=== PATIENT | male | born 1960 | race Caucasian/White ===

== ENCOUNTER 2016-11-28 11:21 | Inpatient (IN) | payer MEDICARE, BC ==
[2016-11-28] VITALS (7 sets, daily range): BP systolic 136–147; BP diastolic 60–74
[~2016-11-28] VITALS: Ht 180.3 cm; Wt 113.4 kg
[~2016-11-28 11:21] MED LIST: ASPI-482 PO; CHOL20004 PO; DOXY100T PO; DULO60CA6 PO; FLUD0.1T PO; INSU100C SQ; INSU100C4 SQ; INSU100V8 SQ; KRIL500C PO; METH4TAB2 PO; MYCO360T PO; NIAC500T9 PO; OMEG10005 PO; SULF1TAB23 PO; TACR0.5C4 PO; TACR1CAP4 PO
[2016-11-28] MEDS ORDERED: IV NORMAL SALINE 1000ML BAG 1,000 ML IV SCH (12:15)
[2016-11-28] MEDS: FENTANYL PF 100 MCG/2 ML VIAL. IV PRN ×4 (12:39→22:21)
[2016-11-28 12:42] LABS: BASO % 0 % (0-3); EOS % 0 % (0-3); HEMATOCRIT 39.9 % (39.0-53.0); HEMOGLOBIN 13.5 g/dL (13.0-17.5); LYMPH # 0.4 x10^3/uL (1.0-4.8); LYMPH % 5 % (24-48); MEAN CORPUSCULAR HEMOGLOBIN 29 pg (25-35); MEAN CORPUSCULAR HGB CONC 34 g/dL (31-37); MEAN CORPUSCULAR VOLUME 86 fL (79-100); MONO % 7 % (0-9); NEUT % 87 % (31-73); PLATELET COUNT 233 x10^3/uL (140-400); RED BLOOD COUNT 4.66 x10^6/uL (4.30-5.70); RED CELL DISTRIBUTION WIDTH 15.1 % (11.5-14.5); WHITE BLOOD COUNT 9.3 x10^3/uL (4.0-11.0)
[2016-11-28 12:56] LABS: CALCIUM 9.5 mg/dL (8.5-10.1); CREATININE 1.5 mg/dL (0.7-1.3); GFR 48.2; POTASSIUM 4.1 mmol/L (3.5-5.1)
[2016-11-28 13:19] LABS: C-REACTIVE PROTEIN 454.2 mg/L (0-3.3)
--- NOTE | 2016-11-28 13:48 | PHYS DOC ---
Past Medical History Past Medical History: Diabetes-Type II, Renal Disease, Other Additional Past Medical Histor: CY NEUROPATHY LEGS AND ARMS,vertigo Past Surgical History: Coronary Bypass Surgery, Other Additional Past Surgical Histo: CY KIDNEY TRANSPLANT, CATARACT SX CY EYES, FX RIGHT HIP,FISTULA L ARM Alcohol Use: None Drug Use: None Adult General Chief Complaint Chief Complaint: LOWER EXTREMITY SWELLING HPI HPI Patient is a 56 year old male who presents with pain, redness, and swelling to right anterior knee that is worsened over the past 2 days. This pain is achy, severe, constant, worse with range of motion. He states he had a rug burn to his right knee 2 days ago and it has turned this. He denies bleeding or drainage or other injury. States it is difficult to bend his right knee due to the pain and swelling. He was seen at urgent care and sent here for further evaluation for concern of cellulitis in the setting of immunosuppression. He denies numbness, tingling, weakness, fever or chills, nausea or vomiting. Review of Systems Review of Systems Constitutional: Denies fever or chills [] Eyes: Denies change in visual acuity, redness, or eye pain [] HENT: Denies nasal congestion or sore throat [] Respiratory: Denies cough or shortness of breath [] Cardiovascular: No additional information not addressed in HPI [] GI: Denies abdominal pain, nausea, vomiting, bloody stools or diarrhea [] : Denies dysuria or hematuria [] Musculoskeletal: Denies back pain [] Integument: Has rash and skin lesions to RLE [] Neurologic: Denies headache, focal weakness or sensory changes [] Endocrine: Denies polyuria or polydipsia [] Current Medications Current Medications Current Medications Medications (Trade) Dose Ordered Sig/Beena Start Time Stop Time Status Last Admin Dose Admin Fentanyl Citrate 50 mcg 50 mcg PRN Q15MIN PRN 11/28/16 12:15 11/29/16 12:14 11/28/16 12:39 50 MCG Sodium Chloride (Iv Sodium Chloride 0.9% 1000ml Bag) 1,000 ml @ 1,000 mls/hr Q1H 11/28/16 12:15 11/28/16 13:14 DC 11/28/16 12:39 1,000 MLS/HR Allergies Allergies Allergies Coded Allergies Type Severity Reaction Last Updated Verified No Known Allergies Allergy Intermediate 03/01/16 Yes Physical Exam Physical Exam Constitutional: Well developed, well nourished, no acute distress, non-toxic appearance. [] HENT: Normocephalic, atraumatic, bilateral external ears normal, oropharynx moist, nose normal. [] Eyes: PERRLA, EOMI. [] Neck: Normal range of motion, supple. [] Cardiovascular:Heart rate regular rhythm [] Lungs & Thorax: Bilateral breath sounds clear to auscultation [] Abdomen: Bowel sounds normal, soft, no tenderness. [] Skin: Warm, dry. [] Back: Normal range of motion. [] Extremities: Right lower extremity with redness and swelling to anterior knee worst in the infrapatellar region with obvious thinning of skin concerning for abscess, fluctuance underneath area of thin skin, tenderness and warmth throughout area of discoloration, no crepitance or induration noted, palpable prepatellar swelling noted throughout, no bony tenderness, no posterior knee tenderness, full range of motion at hip/ankle/foot, restricted range of motion of the knee due to pain, equal DP pulses, sensation intact to light touch Neurologic: Alert and oriented X 3, normal motor function, normal sensory function, no focal deficits noted. [] Psychologic: Affect normal, judgement normal, mood normal. [] Current Patient Data Vital Signs Vital Signs Date Time Temp Pulse Resp B/P Pulse Ox O2 Delivery O2 Flow Rate FiO2 11/28/16 11:54 99.4 75 20 177/79 95 Room Air 99.4 Lab Values Laboratory Tests Test 11/28/16 12:25 White Blood Count 9.3x10^3/uL (4.0-11.0) Red Blood Count 4.66x10^6/uL (4.30-5.70) Hemoglobin 13.5g/dL (13.0-17.5) Hematocrit 39.9% (39.0-53.0) Mean Corpuscular Volume 86fL (79-100) Mean Corpuscular Hemoglobin 29pg (25-35) Mean Corpuscular Hemoglobin Concent 34g/dL (31-37) Red Cell Distribution Width 15.1% (11.5-14.5) H Platelet Count 233x10^3/uL (140-400) Neutrophils (%) (Auto) 87% (31-73) H Lymphocytes (%) (Auto) 5% (24-48) L Monocytes (%) (Auto) 7% (0-9) Eosinophils (%) (Auto) 0% (0-3) Basophils (%) (Auto) 0% (0-3) Neutrophils # (Auto) 8.1x10^3uL (1.8-7.7) H Lymphocytes # (Auto) 0.4x10^3/uL (1.0-4.8) L Monocytes # (Auto) 0.7x10^3/uL (0.0-1.1) Eosinophils # (Auto) 0.0x10^3/uL (0.0-0.7) Basophils # (Auto) 0.0x10^3/uL (0.0-0.2) Segmented Neutrophils % 91% (35-66) H Lymphocytes % 4% (24-48) L Monocytes % 5% (0-10) Platelet Estimate Adequate (ADEQUATE) Erythrocyte Sedimentation Rate 112 (0-15) H Sodium Level 127mmol/L (136-145) L Potassium Level 4.1mmol/L (3.5-5.1) Chloride Level 93mmol/L (98-107) L Carbon Dioxide Level 26mmol/L (21-32) Anion Gap 8 (6-14) Blood Urea Nitrogen 26mg/dL (8-26) Creatinine 1.5mg/dL (0.7-1.3) H Estimated GFR (Cockcroft-Gault) 48.2 Glucose Level 446mg/dL (70-99) H Calcium Level 9.5mg/dL (8.5-10.1) C-Reactive Protein, Quantitative 454.2mg/L (0-3.3) H Laboratory Tests 11/28/16 12:25 Laboratory Tests 11/28/16 12:25 Radiology/Procedures Radiology/Procedures Right knee x-ray as interpreted by me with no acute osseous abnormality, has swelling to the prepatellar and infrapatellar areas with small amount of gas to infrapatellar area in location of incision and drainage Course & Med Decision Making Course & Med Decision Making Pertinent Labs and Imaging studies reviewed. (See chart for details) Bedside incision and drainage completed to right knee using 18-gauge needle to unroof soft area to infrapatellar region. Significant amount of purulent drainage expressed from the wound. Wound was not probed or irrigated otherwise. Aerobic wound culture was sent to lab. This was performed prior to XRay. Discussed need for admission for cellulitis with abscess in the setting of immunocompromised state with Dr Villegas, who agrees to admit. Orthopedics consult placed. Julietteon Disclaimer Dragon Disclaimer This electronic medical record was generated, in whole or in part, using a voice recognition dictation system. Departure Departure Impression: Primary Impression: Cellulitis and abscess of leg, except foot Additional Impression: Immunosuppression Disposition: 09 ADMITTED INPATIENT Condition: STABLE Referrals: TIMA VILLEGAS MD (PCP) Problem Qualifiers Michelle BARAHONA MD Nov 28, 2016 13:48
[2016-11-28] MEDS ORDERED: VANCOMYCIN PER PHARMACY MC PRN (14:00)
[2016-11-28] MEDS ORDERED: VANCOMYCIN 2 GM in IV NORMAL SALINE 500ML BAG 500 ML IV ONE (14:00)
[2016-11-28] MEDS ORDERED: ACETAMINOPHEN 325 MG TABLET. PO PRN (14:00)
[2016-11-28] MEDS ORDERED: PIP/TAZO PER PHARMACY MC PRN ×2 (14:00→21:30)
[2016-11-28] MEDS ORDERED: ONDANSETRON PF 4 MG/2 ML VIAL. IV PRN ×2 (14:00→17:30)
--- NOTE | 2016-11-28 14:09 | RAD ---
Right knee, 3 views, 11/28/2016: History: Knee pain and swelling Comparison is made to a study from 03/01/2016. The inferior aspect of an intramedullary halley is present in the distal femur. There is an old comminuted fracture of the lower pole of the patella. The fracture fragments are incompletely united. There is some sclerotic change and bony loss involving the most inferior patellar fragments. There is moderate soft tissue swelling in the prepatellar and infrapatellar regions. There are gas collections in the soft tissues in the infrapatellar region suggesting an open wound or infection by a gas-forming organism. There is a suggestion of a joint effusion. No acute distal femoral, proximal tibial or proximal fibular fracture is seen. Arterial calcifications are present. IMPRESSION: 1. 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 2. Small gas collections and soft tissue swelling in the infrapatellar region. In the absence of penetrating trauma, infection should be considered.
[2016-11-28 14:30] LABS: PLT ESTIMATE ADEQUATE (ADEQUATE)
[2016-11-28] MEDS ORDERED: PIPERACILLIN/TAZOBACTAM 3.375 GM in IV NORMAL SALINE 50ML 50 ML IV ONE (15:00)
--- NOTE | 2016-11-28 15:31 | ACF ---
Admission Forms Criteria CELLULITIS Clinical Indications for Admission to Inpatient Care (Place 'X' for any and all applicable criteria): Admission is indicated for ANY ONE of the following(1)(2)(3)(4)(5): [ ]I. Limb-threatening infection [ ]II. High-risk comorbid condition as indicated by ANY ONE of the following: [ ]a) Uncontrolled diabetes (eg, HbA1c greater than 10% (0.1)) [ ]b) Cirrhosis [ ]c) Neutropenia [ ]d) Asplenia [ ]e) Immunosuppression [ ]f) Symptomatic heart failure [ ]III. Failure of outpatient therapy as indicated by ALL of the following: [ ]a) Progression or no improvement after adequate trial (minimum of 48 hours, with longer period for stable lower extremity infection) [ ]b) Adequate antibiotic regimen as indicated by use of ANY ONE of the following: [ ]i) First-generation cephalosporin (e.g., cephalexin) [ ]ii) Antistaphylococcal penicillin (e.g., dicloxacillin) [ ]iii) Penicillin-allergic patient regimen (clindamycin, extended-spectrum fluoroquinolone, or doxycycline) [ ]iv) Resistant organism (eg, methicillin-resistant Staphylococcus aureus) regimen (6) [ ]c) Outpatient intravenous therapy regimen is not appropriate due to ANY ONE of the following. (7)(8)(9)(10): [ ]i) It was tried and was not successful (eg, progression of infection). [ ]ii) It is not available or cannot be arranged in a clinically appropriate time frame (e.g., the next day). [ ]iii) Clinical presentation (eg, acuity of infection, rapidity of progression, confirmed or suspected bacteremia) is judged to require ALL of the following: [ ]1) Immediate initiation of intravenous therapy ( eg, cannot wait for next day) [ ]2) Intensity of patient monitoring and observation (eg, vital sign measurement, checks for infection progression) that cannot be provided at other than inpatient level of care [ ]IV. Mental status changes [ ]V. Bacteremia [ ]. Hemodynamic instability [ ]VII. Suspected necrotizing soft tissue infection (e.g., gas in tissue)(11)( 12) [ ]VIII. Orbital infection (13)(14) [ ]IX. Associated surgical procedure (e.g., abscess drainage, debridement) not amenable to outpatient, emergency department, or observation care [ ]X. Cutaneous gangrene [ ]XI. High fever (temperature greater than 39.5 degrees C (103.1 degrees F) (oral)) not responsive to outpatient, emergency department, or observation care therapy [X]XIII. Inpatient admission required rather than observation care (Also use Cellulitis: Observation Care as appropriate) because of ANY ONE of the following : [ ]a) Periorbital or perineal infection that is severe or worsening [X]b) Severe pain requiring acute inpatient management [ ]c) IV fluid to replace significant ongoing (e.g., for over 24 hours) losses (greater than 3L/m2 per day) [ ]d) Compartment syndrome monitoring (17) [ ]e) Strict or protective (eg, laminar flow) isolation [ ]f) Urgent debridement or skin grafting [ ]g) Bone or joint debridement [ ]h) Immediate inpatient surgery [ ]i) Other condition, treatment or monitoring requiring inpatient admission Extended stay beyond goal length of stay may be needed for (1)(18): [ ]a) Necrotizing soft tissue infection or fasciitis [ ]b) Gram-negative infection [ ]c) Methicillin-resistant Staphylococcal aureus (MRSA) infection [ ]d) Peripheral venous insufficiency with cellulitis [ ]e) Extensive edema [ ]f) Sepsis or continued Hemodynamic instability [ ]g) Continued high fever or mental status change [ ]h) Bacteremia [ ]i) Active serious comorbid conditions ( eg, heart failure, renal insufficiency) The original [facility] content created by [employer] has been revised. The portions of the content which have been revised are identified through the use of italic text or in bold, and [facility] has neither reviewed nor approved the modified material. All other unmodified content is copyright [facility] Please see references footnoted in the original [facility] edition 2016 Admission Criteria Met?: Yes KESHAWN VARMA Nov 28, 2016 15:30
[2016-11-28] MEDS ORDERED: INSU100C4 SQ ×3 (16:48→16:50)
[2016-11-28] MEDS ORDERED: TACR1CAP4 PO (16:48)
[2016-11-28] MEDS ORDERED: DEXTROSE 50% 25 GM / 50ML DISP.SYRIN. IV PRN ×2 (17:00→21:00)
[2016-11-28] MEDS ORDERED: IV RINGERS,LACTATED 1000ML 1,000 ML IV SCH (17:24)
[2016-11-28] MEDS ORDERED: MORPHINE SULFATE 2 MG/ML DISP.SYRIN. IV PRN (17:30)
[2016-11-28] MEDS ORDERED: HYDROMORPHONE 2 MG/ML VIAL. IV PRN (17:30)
[2016-11-28] MEDS ORDERED: PROCHLORPERAZINE 10 MG/2 ML VIAL. IV PRN (17:30)
[2016-11-28] MEDS ORDERED: FENTANYL PF 100 MCG/2 ML VIAL. IV PRN (17:30)
[2016-11-28] MEDS ORDERED: LIDOCAINE 1% 1 ML SYRINGE. ID PRN (17:30)
[2016-11-28] MEDS: IV NORMAL SALINE 1000ML BAG 1,000 ML IV SCH (18:00)
[2016-11-28] MEDS ORDERED: PHENYLEPHRINE in 0.9% NACL PF 1 MG/10 ML DISP.SYRIN. IV ONE (18:10)
[2016-11-28] MEDS ORDERED: FENTANYL PF 100 MCG/2 ML VIAL. ONE (18:10)
[2016-11-28] MEDS ORDERED: FAMOTIDINE 20 MG/2 ML VIAL ONE (18:10)
[2016-11-28] MEDS ORDERED: PROPOFOL 20 ML IV ONE ×2 (18:10→18:33)
[2016-11-28] MEDS ORDERED: ONDANSETRON PF 4 MG/2 ML VIAL. ONE (18:10)
[2016-11-28] MEDS: PIPERACILLIN/TAZOBACTAM 3.375 GM in IV NORMAL SALINE 50ML 50 ML IV SCH ×2 (18:30→23:57)
[2016-11-28] MEDS ORDERED: SEVOFLURANE 31 TO 60 MINUTES. IH ONE (18:57)
[2016-11-28] MEDS ORDERED: SEVOFLURANE 61 TO 120 MINUTES. IH ONE ×2 (18:57→19:50)
[2016-11-28] MEDS ORDERED: TOBRAMYCIN POWDER 1.2 GM VIAL. ONE ×6 (19:21→19:46)
[2016-11-28] MEDS ORDERED: VANCOMYCIN 10GM VIAL for OR. ONE (19:21)
[2016-11-28] MEDS ORDERED: TRANEXAMIC ACID 1,000 MG in IV NORMAL SALINE 50ML 50 ML INJ ONE (19:30)
[2016-11-28] MEDS ORDERED: INSULIN ASPART 100 UNIT/ML 10ML VIAL. SQ ONE (20:57)
[2016-11-28] MEDS ORDERED: INSULIN REGULAR 100 UNIT/ML 10ML VIAL. IV ONE (21:00)
--- NOTE | 2016-11-28 21:35 | PDOC ---
BRIEF OPERATIVE NOTE Date: Nov 28, 2016 Pre-Op Diagnosis right septic prepatellar bursitis Post-Op Diagnosis right knee septic arthritis Procedure Performed Incision and debridement, excisional debridement, arthrotomy of right knee Surgeon Madison Redman MD Anesthesiologist none Anesthesia Type: General Blood Loss 100 cc Specimens Obtained multiple cultures and specimens sent to pathology from the knee Findings significant purulence in the suprapatellar bursae involving intratendinous aspect of the patellar tendon. large pus collection in the knee joint proper. biofilm on the femoral condyles. Complications none MADISON REDMAN MD Nov 28, 2016 21:34
[2016-11-29] MEDS ORDERED: PIPERACILLIN/TAZOBACTAM 3.375 GM in IV NORMAL SALINE 50ML 50 ML IV SCH ×2
[2016-11-29] MEDS: FENTANYL PF 100 MCG/2 ML VIAL. IV PRN ×5 (01:11→14:54)
[2016-11-29] MEDS ORDERED: VANCOMYCIN 1.5 GM in IV NORMAL SALINE 500ML BAG 500 ML IV SCH (02:00)
[2016-11-29 03:00] VITALS: BP 151/57
[2016-11-29] MEDS: PIPERACILLIN/TAZOBACTAM 3.375 GM in IV NORMAL SALINE 50ML 50 ML IV SCH (06:24)
[2016-11-29 07:00] VITALS: BP 160/65
[2016-11-29] MEDS ORDERED: MYCOPHENOLIC ACID 360 MG PO SCH (09:00)
[2016-11-29] MEDS: MYCOPHENOLATE ACID 180 MG TABLET.DR. PO SCH ×2 (09:00→21:03)
[2016-11-29] MEDS: ASPIRIN ENTERIC COATED 81 MG TABLET.DR. PO SCH (09:36)
[2016-11-29] MEDS: CHOLECALCIFEROL (VITAMIN D3) 1,000 UNIT TABLET PO SCH (09:36)
[2016-11-29] MEDS: TACROLIMUS 1 MG CAPSULE PO SCH ×2 (09:36→21:03)
[2016-11-29] MEDS: OMEGA-3 FATTY ACIDS/FISH OIL 1,000 MG CAPSULE. PO SCH (09:37)
[2016-11-29] MEDS: FLUDROCORTISONE 0.1 MG TABLET PO SCH (09:37)
[2016-11-29] MEDS: DULOXETINE HCL 30 MG CAPSULE.DR. PO SCH (09:37)
--- NOTE | 2016-11-29 09:48 | PDOC ---
Infectious Disease Note ROS ROS GEN: Denies fevers, chills, sweats HEENT: Denies blurred vision, sore throat CV: Denies chest pain RESP: Denies shortness of air, cough GI: Denies n/v/d NEURO: Denies confusion, dizziness MSK: Denies weakness, joint pain/swelling Vital Sign Vital Signs Vital Signs Date Time Temp Pulse Resp B/P Pulse Ox O2 Delivery O2 Flow Rate FiO2 11/29/16 07:00 98.8 83 16 160/65 95 Room Air 98.8 11/29/16 06:54 2.0 Physical Exam PHYSICAL EXAM GENERAL: NAD, Alert HEENT: PERRL, OC/OP NECK: Supple, no JVD, no LN LUNGS: Clear HEART: S1S2, no gallop, no murmur ABD: Soft, NT, no organomegaly, no rebound EXT: No edema, no cyanosis HEELER MACHINE: Alert, oriented x 3, no focal neurologic deficit SKIN: No rash IV: ok Labs Lab Laboratory Tests Test 11/28/16 12:25 11/28/16 16:20 11/28/16 20:22 11/29/16 00:39 White Blood Count 9.3x10^3/uL (4.0-11.0) Red Blood Count 4.66x10^6/uL (4.30-5.70) Hemoglobin 13.5g/dL (13.0-17.5) Hematocrit 39.9% (39.0-53.0) Mean Corpuscular Volume 86fL (79-100) Mean Corpuscular Hemoglobin 29pg (25-35) Mean Corpuscular Hemoglobin Concent 34g/dL (31-37) Red Cell Distribution Width 15.1% (11.5-14.5) Platelet Count 233x10^3/uL (140-400) Neutrophils (%) (Auto) 87% (31-73) Lymphocytes (%) (Auto) 5% (24-48) Monocytes (%) (Auto) 7% (0-9) Eosinophils (%) (Auto) 0% (0-3) Basophils (%) (Auto) 0% (0-3) Neutrophils # (Auto) 8.1x10^3uL (1.8-7.7) Lymphocytes # (Auto) 0.4x10^3/uL (1.0-4.8) Monocytes # (Auto) 0.7x10^3/uL (0.0-1.1) Eosinophils # (Auto) 0.0x10^3/uL (0.0-0.7) Basophils # (Auto) 0.0x10^3/uL (0.0-0.2) Segmented Neutrophils % 91% (35-66) Lymphocytes % 4% (24-48) Monocytes % 5% (0-10) Platelet Estimate Adequate (ADEQUATE) Erythrocyte Sedimentation Rate 112 (0-15) Sodium Level 127mmol/L (136-145) Potassium Level 4.1mmol/L (3.5-5.1) Chloride Level 93mmol/L (98-107) Carbon Dioxide Level 26mmol/L (21-32) Anion Gap 8 (6-14) Blood Urea Nitrogen 26mg/dL (8-26) Creatinine 1.5mg/dL (0.7-1.3) Estimated GFR (Cockcroft-Gault) 48.2 Glucose Level 446mg/dL (70-99) Calcium Level 9.5mg/dL (8.5-10.1) C-Reactive Protein, Quantitative 454.2mg/L (0-3.3) Glucose (Fingerstick) 382mg/dL (70-99) 361mg/dL (70-99) 291mg/dL (70-99) Test 11/29/16 07:14 Glucose (Fingerstick) 328mg/dL (70-99) Objective Assessment Right septic knee s/p I and D Immunosuppression CKD GPC DM Plan Plan of Care D/c Vanc/Zosyn with CKD and post op Dose Ceftaroline F/u labs and cults/sensitivities Will need PICC line if ok with renal -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
[2016-11-29] MEDS: INSULIN ASPART 300 UNITS/3 ML INSULN.PEN SQ SCH ×4 (09:54→17:38)
--- NOTE | 2016-11-29 10:42 | PDOC ---
PROGRESS NOTES Subjective Subjective Pt awake and pleasant in conversation this am. C/o manageable pain of affected knee. States he has little to no appetite. Pt states his output has been normal. Objective Objective Pt awake and alert. NAD. FSBS elevated, BP elevated (Home medications not restarted as instructed from verbal order with admission orders, initiated this am). Right knee red and warm to touch, dressing CDI. Resp even and unlabored. Lung sounds CTA bilat. Heart with RRR. No murmurs. Vital Signs Date Time Temp Pulse Resp B/P Pulse Ox O2 Delivery O2 Flow Rate FiO2 11/29/16 09:38 Room Air 11/29/16 07:00 98.8 83 16 160/65 95 98.8 11/29/16 06:54 2.0 Intake and Output 11/29/16 07:00 Intake Total 1250 ml Output Total 350 ml Balance 900 ml Intake Oral 240 ml IV Total 1010 ml Output Urine Total 250 ml Estimated Blood Loss 100 ml # Voids 2 Assessment Assessment Problems Medical Problems: (1) Cellulitis and abscess of leg, except foot Status: Acute (2) Immunosuppression Status: Acute Plan Plan of Care 1. Right septic knee -s/p I and D on 11/29 -Culture with GPC, sensitivity pending -ID consulting -Ceftaroline initiated on 11/29 -Renal consulted regarding PICC line placement 2. 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 Acute on chronic renal failure -Renal consulted -Creat 1.5 3. DM, insulin dependent -Pt on Levemir and Novolog. -FSBS qid Comment Review of Relevant I have reviewed the following items shawn (where applicable) has been applied. Labs Laboratory Tests Test 11/28/16 12:25 11/28/16 16:20 11/28/16 20:22 11/29/16 00:39 White Blood Count 9.3x10^3/uL (4.0-11.0) Red Blood Count 4.66x10^6/uL (4.30-5.70) Hemoglobin 13.5g/dL (13.0-17.5) Hematocrit 39.9% (39.0-53.0) Mean Corpuscular Volume 86fL (79-100) Mean Corpuscular Hemoglobin 29pg (25-35) Mean Corpuscular Hemoglobin Concent 34g/dL (31-37) Red Cell Distribution Width 15.1% (11.5-14.5) Platelet Count 233x10^3/uL (140-400) Neutrophils (%) (Auto) 87% (31-73) Lymphocytes (%) (Auto) 5% (24-48) Monocytes (%) (Auto) 7% (0-9) Eosinophils (%) (Auto) 0% (0-3) Basophils (%) (Auto) 0% (0-3) Neutrophils # (Auto) 8.1x10^3uL (1.8-7.7) Lymphocytes # (Auto) 0.4x10^3/uL (1.0-4.8) Monocytes # (Auto) 0.7x10^3/uL (0.0-1.1) Eosinophils # (Auto) 0.0x10^3/uL (0.0-0.7) Basophils # (Auto) 0.0x10^3/uL (0.0-0.2) Segmented Neutrophils % 91% (35-66) Lymphocytes % 4% (24-48) Monocytes % 5% (0-10) Platelet Estimate Adequate (ADEQUATE) Erythrocyte Sedimentation Rate 112 (0-15) Sodium Level 127mmol/L (136-145) Potassium Level 4.1mmol/L (3.5-5.1) Chloride Level 93mmol/L (98-107) Carbon Dioxide Level 26mmol/L (21-32) Anion Gap 8 (6-14) Blood Urea Nitrogen 26mg/dL (8-26) Creatinine 1.5mg/dL (0.7-1.3) Estimated GFR (Cockcroft-Gault) 48.2 Glucose Level 446mg/dL (70-99) Calcium Level 9.5mg/dL (8.5-10.1) C-Reactive Protein, Quantitative 454.2mg/L (0-3.3) Glucose (Fingerstick) 382mg/dL (70-99) 361mg/dL (70-99) 291mg/dL (70-99) Test 11/29/16 07:14 Glucose (Fingerstick) 328mg/dL (70-99) Laboratory Tests Test 11/28/16 12:25 11/28/16 16:20 11/28/16 20:22 11/29/16 00:39 White Blood Count 9.3x10^3/uL (4.0-11.0) Red Blood Count 4.66x10^6/uL (4.30-5.70) Hemoglobin 13.5g/dL (13.0-17.5) Hematocrit 39.9% (39.0-53.0) Mean Corpuscular Volume 86fL (79-100) Mean Corpuscular Hemoglobin 29pg (25-35) Mean Corpuscular Hemoglobin Concent 34g/dL (31-37) Red Cell Distribution Width 15.1% (11.5-14.5) Platelet Count 233x10^3/uL (140-400) Neutrophils (%) (Auto) 87% (31-73) Lymphocytes (%) (Auto) 5% (24-48) Monocytes (%) (Auto) 7% (0-9) Eosinophils (%) (Auto) 0% (0-3) Basophils (%) (Auto) 0% (0-3) Neutrophils # (Auto) 8.1x10^3uL (1.8-7.7) Lymphocytes # (Auto) 0.4x10^3/uL (1.0-4.8) Monocytes # (Auto) 0.7x10^3/uL (0.0-1.1) Eosinophils # (Auto) 0.0x10^3/uL (0.0-0.7) Basophils # (Auto) 0.0x10^3/uL (0.0-0.2) Segmented Neutrophils % 91% (35-66) Lymphocytes % 4% (24-48) Monocytes % 5% (0-10) Platelet Estimate Adequate (ADEQUATE) Erythrocyte Sedimentation Rate 112 (0-15) Sodium Level 127mmol/L (136-145) Potassium Level 4.1mmol/L (3.5-5.1) Chloride Level 93mmol/L (98-107) Carbon Dioxide Level 26mmol/L (21-32) Anion Gap 8 (6-14) Blood Urea Nitrogen 26mg/dL (8-26) Creatinine 1.5mg/dL (0.7-1.3) Estimated GFR (Cockcroft-Gault) 48.2 Glucose Level 446mg/dL (70-99) Calcium Level 9.5mg/dL (8.5-10.1) C-Reactive Protein, Quantitative 454.2mg/L (0-3.3) Glucose (Fingerstick) 382mg/dL (70-99) 361mg/dL (70-99) 291mg/dL (70-99) Test 11/29/16 07:14 Glucose (Fingerstick) 328mg/dL (70-99) Microbiology 11/28/16 Gram Stain - Final, Complete Medications Current Medications Fentanyl Citrate 50 mcg 50 mcg PRN Q15MIN PRN IV PAIN GREATER THAN 3/10 Last administered on 11/29/16 06:24; Start 11/28/16 at 12:15; Stop 11/29/16 at 12:14 Sodium Chloride (Iv Sodium Chloride 0.9% 1000ml Bag) 1,000 ml @ 1,000 mls/hr Q1H IV Last administered on 11/28/16 12:39; Start 11/28/16 at 12:15; Stop at 13:14; Status DC Ondansetron HCl (Zofran) 4 mg PRN Q8HRS PRN IV NAUSEA/VOMITING; Start 11/28/16 at 14:00; Stop 11/29/16 at 13:59 Fentanyl Citrate (Fentanyl 2ml Vial) 50 mcg PRN Q2HR PRN IV PAIN Last administered on 11/29/16 09:38; Start 11/28/16 at 14:00; Stop 11/29/16 at 13:59 Acetaminophen (Tylenol) 650 mg PRN Q4HRS PRN PO FEVER; Start 11/28/16 at 14:00 ; Stop 11/29/16 at 13:59 Vancomycin HCl (Vanco Per Pharmacy) 1 each PRN DAILY PRN MC SEE COMMENTS Last administered on 11/28/16 17:54; Start 11/28/16 at 14:00; Stop 11/29/16 at 09:32 ; Status DC Piperacillin Sod/ Tazobactam Sod 1 each 1 each PRN DAILY PRN MC SEE COMMENTS; Start 11/28/16 at 14:00; Status Cancel Vancomycin HCl 2 gm/Sodium Chloride 500 ml @ 250 mls/hr 1X ONCE IV Last administered on 11/28/16 18:00; Start 11/28/16 at 14:00; Stop 11/28/16 at 15:59 ; Status DC Piperacillin Sod/ Tazobactam Sod 3.375 gm/Sodium Chloride 50 ml @ 100 mls/hr 1X ONCE IV Last administered on 11/28/16 14:18; Start 11/28/16 at 15:00; Stop 11/28/16 at 15:29; Status DC Piperacillin Sod/ Tazobactam Sod/ Sodium Chloride (Zosyn/Iv Sodium Chloride 0.9 % 50ml) 50 ml @ 100 mls/hr Q6HRS IV Last administered on 11/29/16 06:24; Start 11/28/16 at 19:00; Stop 11/29/16 at 09:36; Status DC Dextrose 12.5 gm PRN Q15MIN PRN IV SEE COMMENTS; Start 11/28/16 at 17:00 Ondansetron HCl (Zofran) 4 mg PRN Q6HRS PRN IV Nausea; Start 11/28/16 at 17:30 ; Stop 11/29/16 at 17:29 Fentanyl Citrate (Fentanyl 2ml Vial) 25 mcg PRN Q5MIN PRN IV MILD PAIN; Start 11/28/16 at 17:30; Stop 11/29/16 at 17:29 Fentanyl Citrate (Fentanyl 2ml Vial) 50 mcg PRN Q5MIN PRN IV MODERATE PAIN Last administered on 11/28/16 20:59; Start 11/28/16 at 17:30; Stop 11/29/16 at 17:29 Morphine Sulfate 1 mg 1 mg PRN Q10MIN PRN IV SEVERE PAIN; Start 11/28/16 at 17: 30; Stop 11/29/16 at 17:29 Lactated Ringer's (Iv Lactated Ringers) 1,000 ml @ 30 mls/hr Q24H IV ; Start at 17:24; Stop 11/29/16 at 05:23; Status DC Lidocaine HCl 2 ml 1X PRN PRN ID IV START; Start 11/28/16 at 17:30; Stop at 17:29 Hydromorphone HCl (Dilaudid) 0.5 mg PRN Q10MIN PRN IV SEV PAIN,Second choice; Start 11/28/16 at 17:30; Stop 11/29/16 at 17:29 Prochlorperazine Edisylate 5 mg 5 mg PACU PRN PRN IV NAUSEA Last administered on 11/28/16 20:28; Start 11/28/16 at 17:30; Stop 11/29/16 at 17:29 Vancomycin HCl/ Sodium Chloride (Iv Sodium Chloride 0.9% 500ml Bag) 500 ml @ 250 mls/hr Q12H IV Last administered on 11/29/16 02:34; Start 11/29/16 at 02: 00; Stop 11/29/16 at 09:32; Status DC Vancomycin HCl 1 each 1 each 1X ONCE MC ; Start 11/30/16 at 01:30; Stop at 01:31; Status Cancel Sodium Chloride 1,000 ml @ 30 mls/hr Q24H IV Last administered on 11/28/16 18 :00; Start 11/28/16 at 18:00 Propofol (Diprivan) 20 ml @ As Directed STK-MED ONCE IV ; Start 11/28/16 at 18: 10; Stop 11/28/16 at 18:11; Status DC Phenylephrine HCl 1 mg STK-MED ONCE IV ; Start 11/28/16 at 18:10; Stop 11/28/16 at 18:11; Status DC Fentanyl Citrate (Fentanyl 2ml Vial) 100 mcg STK-MED ONCE .ROUTE ; Start at 18:10; Stop 11/28/16 at 18:11; Status DC Famotidine (Pepcid) 20 mg STK-MED ONCE .ROUTE ; Start 11/28/16 at 18:10; Stop at 18:11; Status DC Ondansetron HCl 4 mg 4 mg STK-MED ONCE .ROUTE ; Start 11/28/16 at 18:10; Stop at 18:11; Status DC Propofol (Diprivan) 20 ml @ As Directed STK-MED ONCE IV ; Start 11/28/16 at 18: 33; Stop 11/28/16 at 18:34; Status DC Sevoflurane (Ultane) 60 ml STK-MED ONCE IH ; Start 11/28/16 at 18:57; Stop 11/28 at 18:58; Status DC Sevoflurane 30 ml 30 ml STK-MED ONCE IH ; Start 11/28/16 at 18:57; Stop at 18:58; Status DC Tranexamic Acid/ Sodium Chloride (Cyklokapron/Iv Sodium Chloride 0.9% 50ml) 60 ml @ 60 mls/hr 1X PERIOP ONCE INJ Last administered on 11/28/16 19:30; Start 11/28/16 at 19:30; Stop 11/28/16 at 20:29; Status DC Vancomycin HCl (Vanco) 10 gm STK-MED ONCE .ROUTE Last administered on 19:30; Start 11/28/16 at 19:21; Stop 11/28/16 at 19:22; Status DC Tobramycin Sulfate 1.2 gm STK-MED ONCE .ROUTE Last administered on 11/28/16 19 :30; Start 11/28/16 at 19:21; Stop 11/28/16 at 19:22; Status DC Tobramycin Sulfate 1.2 gm STK-MED ONCE .ROUTE Last administered on 11/28/16 19 :30; Start 11/28/16 at 19:46; Stop 11/28/16 at 19:47; Status DC Tobramycin Sulfate 1.2 gm STK-MED ONCE .ROUTE Last administered on 11/28/16 19 :30; Start 11/28/16 at 19:46; Stop 11/28/16 at 19:47; Status DC Tobramycin Sulfate 1.2 gm STK-MED ONCE .ROUTE Last administered on 11/28/16 19 :30; Start 11/28/16 at 19:46; Stop 11/28/16 at 19:47; Status DC Tobramycin Sulfate 1.2 gm STK-MED ONCE .ROUTE Last administered on 11/28/16 19 :30; Start 11/28/16 at 19:46; Stop 11/28/16 at 19:47; Status DC Tobramycin Sulfate 1.2 gm STK-MED ONCE .ROUTE Last administered on 11/28/16 19 :30; Start 11/28/16 at 19:46; Stop 11/28/16 at 19:47; Status DC Sevoflurane (Ultane) 60 ml STK-MED ONCE IH ; Start 11/28/16 at 19:50; Stop 11/28 at 19:51; Status DC Dextrose 12.5 gm PRN Q15MIN PRN IV SEE COMMENTS; Start 11/28/16 at 21:00; Stop 11/29/16 at 20:59 Insulin Human Regular (Novolin R Vial) 20 unit 1X ONCE IV Last administered on 11/28/16 21:27; Start 11/28/16 at 21:00; Stop 11/28/16 at 21:01; Status DC Insulin Aspart (Novolog Vial) 100 unit STK-MED ONCE SQ ; Start 11/28/16 at 20:57 ; Stop 11/28/16 at 20:58; Status DC Piperacillin Sod/ Tazobactam Sod 1 each 1 each PRN DAILY PRN MC SEE COMMENTS; Start 11/28/16 at 21:30; Status UNV Piperacillin Sod/ Tazobactam Sod/ Sodium Chloride (Zosyn/Iv Sodium Chloride 0.9 % 50ml) 50 ml @ 100 mls/hr Q6HRS IV ; Start 11/29/16 at 00:00; Status UNV Aspirin (Ecotrin) 81 mg DAILY PO Last administered on 11/29/16 09:36; Start at 09:00 Fludrocortisone Acetate (Florinef) 0.1 mg DAILY PO Last administered on 09:37; Start 11/29/16 at 09:00 Mycophenolate Sodium (Myfortic) 360 mg BID PO ; Start 11/29/16 at 09:00; Stop at 09:00; Status DC Tacrolimus (Prograf) 1 mg BID PO Last administered on 11/29/16 09:36; Start at 09:00 Vitamin D (Vitamin D3) 1,000 unit DAILY PO Last administered on 11/29/16 09:36 ; Start 11/29/16 at 09:00 Duloxetine HCl (Cymbalta) 60 mg DAILY PO Last administered on 11/29/16 09:37; Start 11/29/16 at 09:00 Insulin Aspart (Novolog) 12 units DAILYBFRSUP SQ ; Start 11/29/16 at 17:00 Insulin Aspart (Novolog) 14 units DAILYWLUN SQ ; Start 11/29/16 at 12:00 Non-Formulary Medication 20 unit DAILYWSUP SQ ; Start 11/29/16 at 17:00; Status UNV Insulin Detemir (Levemir) 24 units QHS SQ ; Start 11/29/16 at 21:00 Niacin (Slo-Niacin) 500 mg QHS PO ; Start 11/29/16 at 21:00 Mycophenolate Sodium (Myfortic) 360 mg BID PO Last administered on 11/29/16 09 :00; Start 11/29/16 at 09:00 Fish Oil (Fish Oil) 1,000 mg DAILY PO Last administered on 11/29/16 09:37; Start 11/29/16 at 09:30 Insulin Aspart 12 units 12 units TIDAC SQ Last administered on 11/29/16 09:54 ; Start 11/29/16 at 11:30 Linezolid 300 ml @ 300 mls/hr Q12HR IV ; Start 11/29/16 at 10:00; Stop at 10:00; Status DC Ceftaroline Fosamil/Sodium Chloride (Teflaro/Iv Sodium Chloride 0.9% 250ml) 250 ml @ 250 mls/hr Q12HR IV ; Start 11/29/16 at 10:00 Active Scripts Active Reported Novolog (Insulin Aspart) 100 Unit/1 Ml Cartridge 14 Unit SQ DAILYWLUN Novolog (Insulin Aspart) 100 Unit/1 Ml Cartridge 12 Unit SQ DAILYBFRSUP Prograf (Tacrolimus) 1 Mg Capsule 1 Cap PO BID [place]-3 ([place]-3 Fatty Acids) 1,000 Mg Capsule 1,000 Mg PO Novolog (Insulin Aspart) 100 Unit/1 Ml Cartridge 20 Unit SQ DAILYWSUP Lantus (Insulin Glargine,Hum.rec.anlog) 100 Unit/1 Ml Vial 24 Unit SQ HS Niacin 500 Mg Tablet 500 Mg PO HS Aspir 81 (Aspirin) 81 Mg Tablet.dr 1 Tab PO DAILY Vitamin D-3 (Cholecalciferol (Vitamin D3)) 2,000 Unit Capsule 1,000 Unit PO DAILY Krill Oil 500 Mg Capsule 500 Mg PO Fludrocortisone Acetate 0.1 Mg Tablet 1 Tab PO DAILY Myfortic (Mycophenolate Sodium) 360 Mg Tablet. 360 Mg PO BID Cymbalta (Duloxetine Hcl) 60 Mg Capsule. 1 Cap PO DAILY Vitals/I & O Vital Sign - Last 24 Hours 11/28/16 11/28/16 11/28/16 11/28/16 11:54 14:23 16:30 16:35 Temp 99.4 100.0 99.4 100.0 Pulse 75 81 84 Resp 20 20 18 B/P 177/79 143/77 146/74 Pulse Ox 95 99 97 O2 Delivery Room Air Room Air Room Air 11/28/16 11/28/16 11/28/16 11/28/16 16:35 17:53 20:19 20:19 Temp 100.0 98.8 100.0 98.8 Pulse 84 83 76 Resp 18 20 B/P 146/74 206/94 185/63 Pulse Ox 97 100 O2 Delivery Room Air Room Air Simple Mask Mask O2 Flow Rate 10 10 11/28/16 11/28/16 11/28/16 11/28/16 20:30 20:34 20:52 20:59 Pulse 75 83 Resp 20 20 20 20 B/P 180/63 171/69 Pulse Ox 100 100 96 99 O2 Delivery Simple Mask Simple Mask Room Air Room Air O2 Flow Rate 10.0 10 11/28/16 11/28/16 11/28/16 11/28/16 21:07 21:22 21:30 21:40 Temp 98.1 98.1 Pulse 82 82 85 Resp 20 20 18 B/P 147/78 148/57 142/63 Pulse Ox 100 100 100 O2 Delivery Nasal Cannula Nasal Cannula Nasal Cannula Room Air O2 Flow Rate 2 2 2 11/28/16 11/28/16 11/28/16 11/28/16 21:55 22:10 22:21 22:25 Pulse 81 84 83 Resp 18 16 18 B/P 147/67 136/61 144/66 Pulse Ox 100 99 100 99 O2 Delivery Room Air Room Air Nasal Cannula Room Air O2 Flow Rate 2.0 11/28/16 11/28/16 11/29/16 11/29/16 23:00 23:30 01:11 01:20 Pulse 84 78 Resp 18 18 16 B/P 136/61 141/60 Pulse Ox 99 100 100 O2 Delivery Room Air Room Air Nasal Cannula Nasal Cannula O2 Flow Rate 2.0 2 11/29/16 11/29/16 11/29/16 11/29/16 01:41 03:00 03:15 03:45 Temp 99.2 99.2 Pulse 83 Resp 18 16 16 B/P 151/57 Pulse Ox 97 100 100 O2 Delivery Room Air Room Air Room Air O2 Flow Rate 2.0 11/29/16 11/29/16 11/29/16 11/29/16 06:24 06:54 07:00 09:38 Temp 98.8 98.8 Pulse 83 Resp 16 16 16 B/P 160/65 Pulse Ox 100 100 95 O2 Delivery Room Air Nasal Cannula Room Air Room Air O2 Flow Rate 2.0 Intake and Output 11/28/16 11/28/16 11/29/16 15:00 23:00 07:00 Intake Total 1010 ml 240 ml Output Total 100 ml 250 ml Balance 910 ml -10 ml TIMA VILLEGAS MD Nov 29, 2016 10:42
[2016-11-29 11:00] VITALS: BP 133/49
--- NOTE | 2016-11-29 11:45 | HP ---
ADMIT DATE: 11/28/2016 CHIEF COMPLAINT AND HISTORY OF PRESENT ILLNESS: This is a 56-year-old male who is well known to me from followup in the clinic as well as multiple hospitalizations in the past. The patient presented to the Emergency Room on the date of admission with complaints of right knee pain, swelling and redness that have gradually worsened over a 2-day period. The patient stated that his symptoms began with on the right anterior aspect of the knee and gradually progressed over a 48-hour period. The patient stated that his pain was achy and severe, constant and worse with range of motion. On examination in the Emergency Room, the patient was given fentanyl 50 mcg for his pain. He was started on sodium chloride fluid bolus. Laboratory findings revealed a normal WBC, hyponatremia, creatinine of 1.5. The patient was found to be febrile with a temperature of 99.4. His blood pressure was elevated at 177/79. The ER physician did perform an I and D, a significant amount of purulent drainage was expressed from the right knee wound and was sent for culture and sensitivity. The patient was admitted to the hospital for further evaluation and treatment. PAST MEDICAL HISTORY: Significant for diabetes type 2, chronic kidney disease with bilateral kidney transplant and immunosuppression, bilateral neuropathy of legs and arms, chronic vertigo, and coronary artery disease. PAST SURGICAL HISTORY: Coronary bypass surgery, bilateral kidney transplant, cataract surgery of bilateral eyes, fracture of the right hip and fistula of the left arm. MEDICATIONS: Medications were brought with the patient, listed on the computer and have been addressed. ALLERGIES: He has no known drug allergies. FAMILY HISTORY: Unknown. REVIEW OF SYSTEMS: As mentioned above. PHYSICAL EXAMINATION: GENERAL: He is a well-developed and well-nourished male who is pleasant in conversation upon the morning of my examination. He is in no apparent distress. VITAL SIGNS: Fingerstick blood sugars are elevated as well as blood pressure, these are secondary to the patient's home medications not being restarted regardless of the verbal orders placed with the admission orders. HEENT: Unremarkable. NECK: Supple, without adenopathy or thyromegaly. CHEST: Clear to auscultation and percussion with distinct breath sounds. HEART: Regular rate and rhythm without S3, S4 or murmur. ABDOMEN: Soft and nontender, without hepatosplenomegaly or mass. EXTREMITIES: The right knee anterior aspect revealed warmth and redness with palpation. There is dressing intact secondary to surgical I and D this a.m. Pedal pulses are decreased, they are equal bilaterally. NEUROLOGIC: He is intact. IMPRESSION: 1. Septic right knee. 2. Immunosuppression secondary to transplant. 3. [id number] renal failure. 4. Diabetes, insulin-dependent. PLAN: Ortho is following the patient status post I and D this a.m. I and D has also been consulted as well as Renal. The patient will be restarted on his home medications to include his , hypertensive medication and diabetic medications. The patient will be closely monitored, managed and treated appropriately throughout his hospitalization. DICTATED BY: Dr. Maddi Simmons. TIMA VILLEGAS MD DR: CHARLI/roger JOB#: [id number] / [id number]
[2016-11-29] MEDS: CEFTAROLINE FOSAMIL 600 MG in IV NORMAL SALINE 250ML 250 ML IV SCH ×2 (12:15→21:40)
--- NOTE | 2016-11-29 14:40 | PDOC2 ---
CONSULT Date of Consult Date of Consult DATE: 11/29/16 TIME: 14:39 Referring Physician Referring Physician: Dr Spann Identification/Chief Complaint Chief Complaint Kirk Pain and now s/p surgery with findings of significant purulence in the suprapatellar bursae involving intratendinous aspect of the patellar tendon. large pus collection in the knee joint proper. biofilm on the femoral condyles. Problems: Source Source: Chart review, Patient History of Present Illness Reason for Visit: as dictated Past Medical History CENTRAL NERVOUS SYSTEM: Periperal neuropathy Musculoskeletal: Muscle atrophy, Weakness Renal/: Other Endocrine: Diabetes Past Surgical History Past Surgical History: Cataract Removal, Other Family History Family History: Diabetes, Kidney Disease Social History ALCOHOL: none Drugs: None Lives: with Family Domestic Violence: Neg Current Problem List Problem List Problems Medical Problems: (1) Cellulitis and abscess of leg, except foot Status: Acute (2) Immunosuppression Status: Acute Current Medications Current Medications Current Medications Fentanyl Citrate 50 mcg 50 mcg PRN Q15MIN PRN IV PAIN GREATER THAN 3/10 Last administered on 11/29/16 06:24; Start 11/28/16 at 12:15; Stop 11/29/16 at 12:14 ; Status DC Sodium Chloride (Iv Sodium Chloride 0.9% 1000ml Bag) 1,000 ml @ 1,000 mls/hr Q1H IV Last administered on 11/28/16 12:39; Start 11/28/16 at 12:15; Stop at 13:14; Status DC Ondansetron HCl (Zofran) 4 mg PRN Q8HRS PRN IV NAUSEA/VOMITING; Start 11/28/16 at 14:00; Stop 11/29/16 at 13:59; Status DC Fentanyl Citrate (Fentanyl 2ml Vial) 50 mcg PRN Q2HR PRN IV PAIN Last administered on 11/29/16 09:38; Start 11/28/16 at 14:00; Stop 11/29/16 at 13:59 ; Status DC Acetaminophen (Tylenol) 650 mg PRN Q4HRS PRN PO FEVER; Start 11/28/16 at 14:00 ; Stop 11/29/16 at 13:59; Status DC Vancomycin HCl (Vanco Per Pharmacy) 1 each PRN DAILY PRN MC SEE COMMENTS Last administered on 11/28/16 17:54; Start 11/28/16 at 14:00; Stop 11/29/16 at 09:32 ; Status DC Piperacillin Sod/ Tazobactam Sod 1 each 1 each PRN DAILY PRN MC SEE COMMENTS; Start 11/28/16 at 14:00; Status Cancel Vancomycin HCl 2 gm/Sodium Chloride 500 ml @ 250 mls/hr 1X ONCE IV Last administered on 11/28/16 18:00; Start 11/28/16 at 14:00; Stop 11/28/16 at 15:59 ; Status DC Piperacillin Sod/ Tazobactam Sod 3.375 gm/Sodium Chloride 50 ml @ 100 mls/hr 1X ONCE IV Last administered on 11/28/16 14:18; Start 11/28/16 at 15:00; Stop 11/28/16 at 15:29; Status DC Piperacillin Sod/ Tazobactam Sod/ Sodium Chloride (Zosyn/Iv Sodium Chloride 0.9 % 50ml) 50 ml @ 100 mls/hr Q6HRS IV Last administered on 11/29/16 06:24; Start 11/28/16 at 19:00; Stop 11/29/16 at 09:36; Status DC Dextrose 12.5 gm PRN Q15MIN PRN IV SEE COMMENTS; Start 11/28/16 at 17:00 Ondansetron HCl (Zofran) 4 mg PRN Q6HRS PRN IV Nausea; Start 11/28/16 at 17:30 ; Stop 11/29/16 at 17:29 Fentanyl Citrate (Fentanyl 2ml Vial) 25 mcg PRN Q5MIN PRN IV MILD PAIN; Start 11/28/16 at 17:30; Stop 11/29/16 at 17:29 Fentanyl Citrate (Fentanyl 2ml Vial) 50 mcg PRN Q5MIN PRN IV MODERATE PAIN Last administered on 11/28/16 20:59; Start 11/28/16 at 17:30; Stop 11/29/16 at 17:29 Morphine Sulfate 1 mg 1 mg PRN Q10MIN PRN IV SEVERE PAIN; Start 11/28/16 at 17: 30; Stop 11/29/16 at 17:29 Lactated Ringer's (Iv Lactated Ringers) 1,000 ml @ 30 mls/hr Q24H IV ; Start at 17:24; Stop 11/29/16 at 05:23; Status DC Lidocaine HCl 2 ml 1X PRN PRN ID IV START; Start 11/28/16 at 17:30; Stop at 17:29 Hydromorphone HCl (Dilaudid) 0.5 mg PRN Q10MIN PRN IV SEV PAIN,Second choice; Start 11/28/16 at 17:30; Stop 11/29/16 at 17:29 Prochlorperazine Edisylate 5 mg 5 mg PACU PRN PRN IV NAUSEA Last administered on 11/28/16 20:28; Start 11/28/16 at 17:30; Stop 11/29/16 at 17:29 Vancomycin HCl/ Sodium Chloride (Iv Sodium Chloride 0.9% 500ml Bag) 500 ml @ 250 mls/hr Q12H IV Last administered on 11/29/16 02:34; Start 11/29/16 at 02: 00; Stop 11/29/16 at 09:32; Status DC Vancomycin HCl 1 each 1 each 1X ONCE MC ; Start 11/30/16 at 01:30; Stop at 01:31; Status Cancel Sodium Chloride 1,000 ml @ 30 mls/hr Q24H IV Last administered on 11/28/16 18 :00; Start 11/28/16 at 18:00 Propofol (Diprivan) 20 ml @ As Directed STK-MED ONCE IV ; Start 11/28/16 at 18: 10; Stop 11/28/16 at 18:11; Status DC Phenylephrine HCl 1 mg STK-MED ONCE IV ; Start 11/28/16 at 18:10; Stop 11/28/16 at 18:11; Status DC Fentanyl Citrate (Fentanyl 2ml Vial) 100 mcg STK-MED ONCE .ROUTE ; Start at 18:10; Stop 11/28/16 at 18:11; Status DC Famotidine (Pepcid) 20 mg STK-MED ONCE .ROUTE ; Start 11/28/16 at 18:10; Stop at 18:11; Status DC Ondansetron HCl 4 mg 4 mg STK-MED ONCE .ROUTE ; Start 11/28/16 at 18:10; Stop at 18:11; Status DC Propofol (Diprivan) 20 ml @ As Directed STK-MED ONCE IV ; Start 11/28/16 at 18: 33; Stop 11/28/16 at 18:34; Status DC Sevoflurane (Ultane) 60 ml STK-MED ONCE IH ; Start 11/28/16 at 18:57; Stop 11/28 at 18:58; Status DC Sevoflurane 30 ml 30 ml STK-MED ONCE IH ; Start 11/28/16 at 18:57; Stop at 18:58; Status DC Tranexamic Acid/ Sodium Chloride (Cyklokapron/Iv Sodium Chloride 0.9% 50ml) 60 ml @ 60 mls/hr 1X PERIOP ONCE INJ Last administered on 11/28/16 19:30; Start 11/28/16 at 19:30; Stop 11/28/16 at 20:29; Status DC Vancomycin HCl (Vanco) 10 gm STK-MED ONCE .ROUTE Last administered on 19:30; Start 11/28/16 at 19:21; Stop 11/28/16 at 19:22; Status DC Tobramycin Sulfate 1.2 gm STK-MED ONCE .ROUTE Last administered on 11/28/16 19 :30; Start 11/28/16 at 19:21; Stop 11/28/16 at 19:22; Status DC Tobramycin Sulfate 1.2 gm STK-MED ONCE .ROUTE Last administered on 11/28/16 19 :30; Start 11/28/16 at 19:46; Stop 11/28/16 at 19:47; Status DC Tobramycin Sulfate 1.2 gm STK-MED ONCE .ROUTE Last administered on 11/28/16 19 :30; Start 11/28/16 at 19:46; Stop 11/28/16 at 19:47; Status DC Tobramycin Sulfate 1.2 gm STK-MED ONCE .ROUTE Last administered on 11/28/16 19 :30; Start 11/28/16 at 19:46; Stop 11/28/16 at 19:47; Status DC Tobramycin Sulfate 1.2 gm STK-MED ONCE .ROUTE Last administered on 11/28/16 19 :30; Start 11/28/16 at 19:46; Stop 11/28/16 at 19:47; Status DC Tobramycin Sulfate 1.2 gm STK-MED ONCE .ROUTE Last administered on 11/28/16 19 :30; Start 11/28/16 at 19:46; Stop 11/28/16 at 19:47; Status DC Sevoflurane (Ultane) 60 ml STK-MED ONCE IH ; Start 11/28/16 at 19:50; Stop 11/28 at 19:51; Status DC Dextrose 12.5 gm PRN Q15MIN PRN IV SEE COMMENTS; Start 11/28/16 at 21:00; Stop 11/29/16 at 20:59 Insulin Human Regular (Novolin R Vial) 20 unit 1X ONCE IV Last administered on 11/28/16 21:27; Start 11/28/16 at 21:00; Stop 11/28/16 at 21:01; Status DC Insulin Aspart (Novolog Vial) 100 unit STK-MED ONCE SQ ; Start 11/28/16 at 20:57 ; Stop 11/28/16 at 20:58; Status DC Piperacillin Sod/ Tazobactam Sod 1 each 1 each PRN DAILY PRN MC SEE COMMENTS; Start 11/28/16 at 21:30; Status UNV Piperacillin Sod/ Tazobactam Sod/ Sodium Chloride (Zosyn/Iv Sodium Chloride 0.9 % 50ml) 50 ml @ 100 mls/hr Q6HRS IV ; Start 11/29/16 at 00:00; Status UNV Aspirin (Ecotrin) 81 mg DAILY PO Last administered on 11/29/16 09:36; Start at 09:00 Fludrocortisone Acetate (Florinef) 0.1 mg DAILY PO Last administered on 09:37; Start 11/29/16 at 09:00 Mycophenolate Sodium (Myfortic) 360 mg BID PO ; Start 11/29/16 at 09:00; Stop at 09:00; Status DC Tacrolimus (Prograf) 1 mg BID PO Last administered on 11/29/16 09:36; Start at 09:00 Vitamin D (Vitamin D3) 1,000 unit DAILY PO Last administered on 11/29/16 09:36 ; Start 11/29/16 at 09:00 Duloxetine HCl (Cymbalta) 60 mg DAILY PO Last administered on 11/29/16 09:37; Start 11/29/16 at 09:00 Insulin Aspart (Novolog) 12 units DAILYBFRSUP SQ ; Start 11/29/16 at 17:00 Insulin Aspart (Novolog) 14 units DAILYWLUN SQ Last administered on 11/29/16 12:21; Start 11/29/16 at 12:00 Non-Formulary Medication 20 unit DAILYWSUP SQ ; Start 11/29/16 at 17:00; Status UNV Insulin Detemir (Levemir) 24 units QHS SQ ; Start 11/29/16 at 21:00 Niacin (Slo-Niacin) 500 mg QHS PO ; Start 11/29/16 at 21:00 Mycophenolate Sodium (Myfortic) 360 mg BID PO Last administered on 11/29/16 09 :00; Start 11/29/16 at 09:00 Fish Oil (Fish Oil) 1,000 mg DAILY PO Last administered on 11/29/16 09:37; Start 11/29/16 at 09:30 Insulin Aspart 12 units 12 units TIDAC SQ Last administered on 11/29/16 09:54 ; Start 11/29/16 at 11:30 Linezolid 300 ml @ 300 mls/hr Q12HR IV ; Start 11/29/16 at 10:00; Stop at 10:00; Status DC Ceftaroline Fosamil/Sodium Chloride (Teflaro/Iv Sodium Chloride 0.9% 250ml) 250 ml @ 250 mls/hr Q12HR IV Last administered on 11/29/16 12:15; Start 11/29/16 at 10:00 Active Scripts Active Reported Novolog (Insulin Aspart) 100 Unit/1 Ml Cartridge 14 Unit SQ DAILYWLUN Novolog (Insulin Aspart) 100 Unit/1 Ml Cartridge 12 Unit SQ DAILYBFRSUP Prograf (Tacrolimus) 1 Mg Capsule 1 Cap PO BID Houston-3 (Houston-3 Fatty Acids) 1,000 Mg Capsule 1,000 Mg PO Novolog (Insulin Aspart) 100 Unit/1 Ml Cartridge 20 Unit SQ DAILYWSUP Lantus (Insulin Glargine,Hum.rec.anlog) 100 Unit/1 Ml Vial 24 Unit SQ HS Niacin 500 Mg Tablet 500 Mg PO HS Aspir 81 (Aspirin) 81 Mg Tablet.dr 1 Tab PO DAILY Vitamin D-3 (Cholecalciferol (Vitamin D3)) 2,000 Unit Capsule 1,000 Unit PO DAILY Krill Oil 500 Mg Capsule 500 Mg PO Fludrocortisone Acetate 0.1 Mg Tablet 1 Tab PO DAILY Myfortic (Mycophenolate Sodium) 360 Mg Tablet. 360 Mg PO BID Cymbalta (Duloxetine Hcl) 60 Mg Capsule. 1 Cap PO DAILY Allergies Allergies: Coded Allergies: No Known Allergies (Verified Allergy, Intermediate, 11/28/16) ROS Review of System GEN: + Fevers no Chills EYES: no new Visual Complaints ENT: no EN Drainage no Hearing deficiets CVS: no Orthopnea no CP RESP: no SOB no NORTON GI: no Nausea no Vomiting : no Dysuria no Urgency HEME: no easy bruising no Palp Ly Nodes NEURO no Focal Weakness no Sz PSYCH: no Suicidal Ideation no Depression SKIN: no Rashes ENDO: no Polyuria or Polydipsia no Hot/Cold Intolerance MU SK: + Arthraigia no Myalgia Physical Exam Physical Exam General Appearance: Awake Alert Oriented x 3 In no Distress Eyes: VIsion Unchanged Conjunctiva Normal EN: No EN Drainage Mucous Memb. moist Neck: no JVD min JVP Supple no Thyromegaly CVS: S1 S2 + Murmur No Gallop No Rub no Edema Resp: no Rales no Rhonchi no Acc. Muscle use GI: BAS +ve NO Bruit Non Tender Non Distended : no CVA tenderness; no Suprapubic Tenderness SKIN: no Rashes Breast Exam deferred Mu.Sk: Adequate ROM x Rt Low ext + Hand Muscle Atrophy Heme: Unable to palpate Obvious LAD no palp Splenomegaly NEURO: Good Strength and Tone Cranial Nerves II - XII grossly intact Psych: not Depressed no Active hallucination Vital Signs Vital Signs Date Time Temp Pulse Resp B/P Pulse Ox O2 Delivery O2 Flow Rate FiO2 11/29/16 11:00 99.3 83 16 133/49 94 Room Air 99.3 11/29/16 06:54 2.0 Assessment & Plan CKD III -T : This is probably his near term Basline for creat. Current FLuid and E-lyte status does not necessitate emergent need for Dialysis. Will re- evaluate for Dialysis in am Renal Txp - stable renal function, ct present Immunosuppression - May need to dec dose to help with Infection. ? Need for IVIG Rt Knee Osteomyelitis with significant purulence in the suprapatellar bursae involving intratendinous aspect of the patellar tendon. large pus collection in the knee joint proper. biofilm on the femoral condyles. - For surgery tomorrow. Needs IV Access for long term ABX - would prefer to Place Groshong in chest and pt agrees (preferably when Afeb) HypoNatremia - IVF as needed. Suspect due to ^^ FSBS HTN: Current BP meds reviewed. See orders for changes. Discussed Plan of Care and prognosis etc. at length with family. Labs Labs Laboratory Tests Test 11/28/16 12:25 11/28/16 16:20 11/28/16 20:22 11/29/16 00:39 White Blood Count 9.3x10^3/uL (4.0-11.0) Red Blood Count 4.66x10^6/uL (4.30-5.70) Hemoglobin 13.5g/dL (13.0-17.5) Hematocrit 39.9% (39.0-53.0) Mean Corpuscular Volume 86fL (79-100) Mean Corpuscular Hemoglobin 29pg (25-35) Mean Corpuscular Hemoglobin Concent 34g/dL (31-37) Red Cell Distribution Width 15.1% (11.5-14.5) Platelet Count 233x10^3/uL (140-400) Neutrophils (%) (Auto) 87% (31-73) Lymphocytes (%) (Auto) 5% (24-48) Monocytes (%) (Auto) 7% (0-9) Eosinophils (%) (Auto) 0% (0-3) Basophils (%) (Auto) 0% (0-3) Neutrophils # (Auto) 8.1x10^3uL (1.8-7.7) Lymphocytes # (Auto) 0.4x10^3/uL (1.0-4.8) Monocytes # (Auto) 0.7x10^3/uL (0.0-1.1) Eosinophils # (Auto) 0.0x10^3/uL (0.0-0.7) Basophils # (Auto) 0.0x10^3/uL (0.0-0.2) Segmented Neutrophils % 91% (35-66) Lymphocytes % 4% (24-48) Monocytes % 5% (0-10) Platelet Estimate Adequate (ADEQUATE) Erythrocyte Sedimentation Rate 112 (0-15) Sodium Level 127mmol/L (136-145) Potassium Level 4.1mmol/L (3.5-5.1) Chloride Level 93mmol/L (98-107) Carbon Dioxide Level 26mmol/L (21-32) Anion Gap 8 (6-14) Blood Urea Nitrogen 26mg/dL (8-26) Creatinine 1.5mg/dL (0.7-1.3) Estimated GFR (Cockcroft-Gault) 48.2 Glucose Level 446mg/dL (70-99) Calcium Level 9.5mg/dL (8.5-10.1) C-Reactive Protein, Quantitative 454.2mg/L (0-3.3) Glucose (Fingerstick) 382mg/dL (70-99) 361mg/dL (70-99) 291mg/dL (70-99) Test 11/29/16 07:14 11/29/16 10:40 Glucose (Fingerstick) 328mg/dL (70-99) 400mg/dL (70-99) Laboratory Tests Test 11/28/16 16:20 11/28/16 20:22 11/29/16 00:39 11/29/16 07:14 Glucose (Fingerstick) 382mg/dL (70-99) 361mg/dL (70-99) 291mg/dL (70-99) 328mg/dL (70-99) Test 11/29/16 10:40 Glucose (Fingerstick) 400mg/dL (70-99) ZAIN BURNETT MD Nov 29, 2016 14:40
[2016-11-29 15:00] VITALS: BP 137/55
[2016-11-29] MEDS ORDERED: MAGNESIUM SULFATE 2GM 50 ML IV PRN (15:00)
[2016-11-29] MEDS ORDERED: INSULIN ASPART 20 UNIT SQ SCH (17:00)
[2016-11-29] MEDS ORDERED: INSULIN ASPART 300 UNITS/3 ML INSULN.PEN SQ SCH (17:00)
[2016-11-29] MEDS: ACETAMINOPHEN 325 MG TABLET. PO PRN (17:10)
[2016-11-29] MEDS: IV NORMAL SALINE 1000ML BAG 1,000 ML IV SCH (18:00)
[2016-11-29 19:00] VITALS: BP 131/51
[2016-11-29] MEDS: NIACIN ER 500 MG TABLET.ER PO SCH (21:03)
[2016-11-29] MEDS: INSULIN DETEMIR 300 UNITS/3 ML INSULN.PEN. SQ SCH (21:03)
[2016-11-29 23:00] VITALS: BP 163/68
[2016-11-30] VITALS (12 sets, daily range): BP systolic 120–163; BP diastolic 59–96
[2016-11-30] MEDS: FENTANYL PF 100 MCG/2 ML VIAL. IV PRN ×4 (00:48→18:20)
--- NOTE | 2016-11-30 02:17 | CONS ---
DATE OF CONSULTATION: 11/29/2016 INFECTIOUS DISEASE CONSULTATION NOTE PATIENT'S ROOM: 402. REQUESTING PHYSICIAN: Dr. Ocampo. REASON FOR CONSULTATION: Knee abscess and cellulitis. HISTORY OF PRESENT ILLNESS: The patient is a 56-year-old gentleman who is a renal transplant patient who states that he was walking with the wheelchair approximately 2 weeks ago when he lost his balance and fell down and essentially skinned his left knee. Since that time, he has been watching it and keeping it covered. About 2 days prior to presentation, he noticed increased swelling, redness and pain and also had a flu-like symptoms with low-grade temperatures. He had not been on any antimicrobials, but [facility]. He had a temperature of 100 degrees. His white blood cell count was 9.3 with 91% segs. Sedimentation rate was 112. 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 He was then taken to the operating room by Dr. Ocampo, underwent an excisional debridement and arthrotomy of the right knee. There was significant purulence found within the joint proper. He had placement of tobramycin within the joint. Cultures were obtained. He has been placed on vancomycin and Zosyn. Currently, the patient is lying in bed. He is fairly comfortable. Denies any active fever, chills or sweats. He has no flu-like symptoms, resolved. He has no sinus issues, sore throat, cough or chest pain. No nausea, vomiting, diarrhea, dysuria, frequency, urgency. No rashes. PAST MEDICAL HISTORY: Positive for: 1. Type 2 diabetes. 2. History of chronic kidney disease with history of renal transplant, on immunosuppressive agents. 3. Coronary artery disease. 4. Peripheral neuropathy. 5. Depression. 6. Previous left lower extremity cellulitis. PAST SURGICAL HISTORY: Positive for coronary artery bypass graft, kidney transplant in 2002, cataract surgery in bilateral eyes, fracture of the right hip with transverse fracture and patella of the right knee, tonsillectomy and adenoidectomy as well as the above-mentioned I and D of the right knee. REVIEW OF SYSTEMS: Otherwise negative except mentioned above. SOCIAL HISTORY: He is , lives at home. Nonsmoker. His currently with him. FAMILY HISTORY: Noncontributory. ALLERGIES: No known drug allergies. CURRENT MEDICATIONS: Include vancomycin and Zosyn. He is on aspirin, vitamin D3, Pepcid, Cymbalta, insulin, mycophenolate, and tacrolimus. Other meds are available and have been reviewed in the chart. PHYSICAL EXAMINATION: VITAL SIGNS: T-max was 100 degrees, currently, 98.8, pulse 83, respirations 16, blood pressure 165/65, and satting 95% on room air. CONSTITUTIONAL: He is a pleasant gentleman. He is cooperative. He is in no acute distress. He has normal conjunctivae. HEENT: Pupils are equal and reactive. Oral cavity, pharynx is clear. NECK: Supple, no JVD. LUNGS: Clear to auscultation bilaterally. HEART: S1 and S2. ABDOMEN: Obese, soft, nontender, nondistended with positive bowel sounds. EXTREMITIES: Without clubbing or cyanosis. His right knee is heavily dressed postoperatively with Matt wraps and a brace. SKIN: Warm to touch without signs of rash. NEUROLOGIC: He is alert and oriented, moves all extremities. PSYCHIATRIC: Affect is appropriate. LABORATORY VALUES: On arrival, white count 9.3, hemoglobin 13.5, platelets of 233 with 91 segs and 4 lymphs. Creatinine was 1.5, glucose was 446. Current glucose of 328. C-reactive protein of 454.2. Cultures are currently pending, but Gram stains showing gram-positive cocci. Radiology reviewed in the history of present illness. IMPRESSION: 1. Right septic knee, status post incision and drainage. 2. Immunosuppression. 3. Chronic kidney disease. 4. Gram-positive cocci. 5. Diabetes. RECOMMENDATIONS: We will discontinue the vancomycin and Zosyn with his chronic kidney disease and currently he is postoperative, so at risk for worsening renal failure. We will dose ceftaroline and followup on labs and cultures and sensitivities. He will need a PICC line if it is okay with Renal, so we will consult Dr. Jordyn Mota and will obtain laboratory values in the morning. This was discussed with his . We will also consult psychiatric social worker supervisor. Thank you for participating in the patient's care. If you have any questions, please do not hesitate to contact me. KITTY KUMAR MD DR: COLLEEN/roger JOB#: [id number] / [id number]
--- NOTE | 2016-11-30 04:29 | CONS ---
DATE OF CONSULTATION: 11/28/2016 PRIMARY PHYSICIAN: Dr. Shaikh. CONSULTING PHYSICIAN: . REASON FOR CONSULTATION: Renal transplant, CKD, in need for IV access and appropriateness of PICC line placement. HISTORY OF PRESENT ILLNESS: The patient is a 56-year-old gentleman followed by Dr. Weir. He is known to have been on dialysis for 3 years and thereafter received a donor kidney about 3 years ago. His creatinine of late has been running about 1.5-1.8 as of 09/2016. Prior to that, he has been 1.3. He developed pretty septic looking knee and is now status post surgery for the same, he had gross pus drained and is on schedule for another surgery tomorrow. In this setting, the patient is felt to require long-term antibiotics and appropriateness of a PICC line. We were asked to see him for appropriateness of PICC line placement. The patient has a left upper arm AV fistula. In my discussion with the patient, he feels and I agree that he would rather have chest catheter than have a PICC line placed in order to preserve his veins in case of need for IV access creation on the right in the near future. PAST MEDICAL HISTORY: Extensive and is positive for cataract extraction, lens implants and replacement, tonsillectomy, adenoidectomy, cardiomyopathy, EF not known, coronary artery disease status post open heart surgery/CABG, ESRD in the past, status post dialysis, kidney transplant 3 years ago, carpal tunnel syndrome, right hip fracture and repair, left hand surgery with infection requiring long-term antibiotics at that time, right kneecap surgery and now recent osteoarthritis surgeries, longstanding diabetes, depression. Family history, etc., as outlined in my electronic records. For rest of details, see electronic records. ZAIN BURNETT MD DR: JUSTIN/roger JOB#: [id number] / [id number]
[2016-11-30 04:53] LABS: BASO % 1 % (0-3); EOS % 3 % (0-3); HEMATOCRIT 32.1 % (39.0-53.0); HEMOGLOBIN 10.6 g/dL (13.0-17.5); LYMPH # 0.9 x10^3/uL (1.0-4.8); LYMPH % 13 % (24-48); MEAN CORPUSCULAR HEMOGLOBIN 29 pg (25-35); MEAN CORPUSCULAR HGB CONC 33 g/dL (31-37); MEAN CORPUSCULAR VOLUME 88 fL (79-100); MONO % 13 % (0-9); NEUT % 71 % (31-73); PLATELET COUNT 239 x10^3/uL (140-400); RED BLOOD COUNT 3.66 x10^6/uL (4.30-5.70); RED CELL DISTRIBUTION WIDTH 15.5 % (11.5-14.5); WHITE BLOOD COUNT 6.5 x10^3/uL (4.0-11.0)
[2016-11-30 05:11] LABS: CALCIUM 8.4 mg/dL (8.5-10.1); CREATININE 1.3 mg/dL (0.7-1.3); GFR 56.9
[2016-11-30] MEDS ORDERED: ONDANSETRON PF 4 MG/2 ML VIAL. IV PRN (07:00)
[2016-11-30] MEDS ORDERED: PROCHLORPERAZINE 10 MG/2 ML VIAL. IV PRN (07:00)
[2016-11-30] MEDS ORDERED: IV RINGERS,LACTATED 1000ML 1,000 ML IV SCH (07:00)
[2016-11-30] MEDS ORDERED: LIDOCAINE 1% 1 ML SYRINGE. ID PRN (07:00)
[2016-11-30] MEDS ORDERED: HYDROMORPHONE 2 MG/ML VIAL. IV PRN (07:00)
[2016-11-30] MEDS ORDERED: FENTANYL PF 100 MCG/2 ML VIAL. IV PRN ×2 (07:00)
[2016-11-30 08:34] LABS: INR 1.2 (0.8-1.1); PROTHROMBIN TIME PATIENT 14.1 SEC (11.7-14.0)
[2016-11-30] MEDS: CHOLECALCIFEROL (VITAMIN D3) 1,000 UNIT TABLET PO SCH (09:00)
[2016-11-30] MEDS: ASPIRIN ENTERIC COATED 81 MG TABLET.DR. PO SCH (09:00)
[2016-11-30] MEDS: OMEGA-3 FATTY ACIDS/FISH OIL 1,000 MG CAPSULE. PO SCH (09:00)
[2016-11-30] MEDS: FLUDROCORTISONE 0.1 MG TABLET PO SCH (09:00)
--- NOTE | 2016-11-30 09:06 | PDOC ---
Infectious Disease Note Subjective Subjective Doing ok ROS ROS GEN: Denies fevers, chills, sweats HEENT: Denies blurred vision, sore throat CV: Denies chest pain RESP: Denies shortness of air, cough GI: Denies n/v/d NEURO: Denies confusion, dizziness MSK: Denies weakness, joint pain/swelling Vital Sign Vital Signs Vital Signs Date Time Temp Pulse Resp B/P Pulse Ox O2 Delivery O2 Flow Rate FiO2 11/30/16 07:00 99.1 73 18 159/69 95 Room Air 99.1 Physical Exam PHYSICAL EXAM GENERAL: NAD, Alert HEENT: PERRL, OC/OP -clear NECK: Supple, no JVD, no LN LUNGS: Clear HEART: S1S2, no gallop, no murmur ABD: Soft, NT, no organomegaly, no rebound EXT: No edema, no cyanosis. Right knee with edema and dressed [employer] SU[employer]OR: Alert, oriented x 3, no focal neurologic deficit SKIN: No rash IV: ok Labs Lab Laboratory Tests Test 11/29/16 10:40 11/29/16 16:10 11/29/16 20:36 11/30/16 03:55 Glucose (Fingerstick) 400mg/dL (70-99) 395mg/dL (70-99) 275mg/dL (70-99) White Blood Count 6.5x10^3/uL (4.0-11.0) Red Blood Count 3.66x10^6/uL (4.30-5.70) Hemoglobin 10.6g/dL (13.0-17.5) Hematocrit 32.1% (39.0-53.0) Mean Corpuscular Volume 88fL (79-100) Mean Corpuscular Hemoglobin 29pg (25-35) Mean Corpuscular Hemoglobin Concent 33g/dL (31-37) Red Cell Distribution Width 15.5% (11.5-14.5) Platelet Count 239x10^3/uL (140-400) Neutrophils (%) (Auto) 71% (31-73) Lymphocytes (%) (Auto) 13% (24-48) Monocytes (%) (Auto) 13% (0-9) Eosinophils (%) (Auto) 3% (0-3) Basophils (%) (Auto) 1% (0-3) Neutrophils # (Auto) 4.6x10^3uL (1.8-7.7) Lymphocytes # (Auto) 0.9x10^3/uL (1.0-4.8) Monocytes # (Auto) 0.8x10^3/uL (0.0-1.1) Eosinophils # (Auto) 0.2x10^3/uL (0.0-0.7) Basophils # (Auto) 0.0x10^3/uL (0.0-0.2) Sodium Level 138mmol/L (136-145) Potassium Level 4.0mmol/L (3.5-5.1) Chloride Level 102mmol/L (98-107) Carbon Dioxide Level 25mmol/L (21-32) Anion Gap 11 (6-14) Blood Urea Nitrogen 21mg/dL (8-26) Creatinine 1.3mg/dL (0.7-1.3) Estimated GFR (Cockcroft-Gault) 56.9 Glucose Level 377mg/dL (70-99) Calcium Level 8.4mg/dL (8.5-10.1) Magnesium Level 1.9mg/dL (1.8-2.4) Test 11/30/16 07:00 11/30/16 08:13 Glucose (Fingerstick) 332mg/dL (70-99) Prothrombin Time 14.1SEC (11.7-14.0) Prothromb Time International Ratio 1.2 (0.8-1.1) Objective Assessment Right septic knee s/p I and D Group B strep so far Immunosuppression CKD DM elevated FSBS Plan Plan of Care Cont Ceftaroline for now and f/u intraop cults and adjust F/u labs and cults/sensitivities [facility] 12/01 if stable Labs in am representative phlebotomy services Appreciate Dr. Mota input D/w KITTY KUMAR MD Nov 30, 2016 09:05
[2016-11-30] MEDS: CEFTAROLINE FOSAMIL 600 MG in IV NORMAL SALINE 250ML 250 ML IV SCH ×2 (09:26→20:26)
[2016-11-30] MEDS: MYCOPHENOLATE ACID 180 MG TABLET.DR. PO SCH ×2 (09:27→20:26)
[2016-11-30] MEDS: TACROLIMUS 1 MG CAPSULE PO SCH ×2 (09:27→20:26)
[2016-11-30] MEDS: DULOXETINE HCL 30 MG CAPSULE.DR. PO SCH (09:28)
[2016-11-30] MEDS: INSULIN ASPART 300 UNITS/3 ML INSULN.PEN SQ SCH ×5 (09:38→17:29)
[2016-11-30 10:01] LABS: CALCIUM 8.3 mg/dL (8.5-10.1); CREATININE 1.3 mg/dL (0.7-1.3); GFR 56.9; PHOSPHORUS 2.8 mg/dL (2.6-4.7)
--- NOTE | 2016-11-30 10:23 | PDOC ---
SUBJECTIVE ROS Renal Txp and CK DIII - T Hungry and wants to eat/ NPO for surgery later today CVS: no Orthopnea, no CP RESP: no SOB, no NORTON GI: no Nausea, no Vomiting : no Dysuria, no Urgency OBJECTIVE Vital Signs Vital Signs Date Time Temp Pulse Resp B/P Pulse Ox O2 Delivery O2 Flow Rate FiO2 11/30/16 09:27 Room Air 11/30/16 07:00 99.1 73 18 159/69 95 99.1 I & 0 Intake and Output 11/30/16 07:00 Intake Total 250 ml Output Total 400 ml Balance -150 ml Intake Oral 0 ml IV Total 250 ml Output Urine Total 400 ml # Voids 1 # Bowel Movements 1 PHYSICAL EXAM Physical Exam General Appearance: Awake Alert Oriented x 3 In no Distress Eyes: VIsion Unchanged Conjunctiva Normal EN: No EN Drainage Mucous Memb. moist Neck: no JVD min JVP Supple no Thyromegaly CVS: S1 S2 + Murmur No Gallop No Rub min Edema Resp: no Rales no Rhonchi no Acc. Muscle use GI: BS +ve NO Bruit Non Tender Non Distended : no CVA tenderness; no Suprapubic Tenderness RLQ Txp - NT with no bruit Assessment & Plan CKD III -T : This is probably his near term Basline for creat in the setting of infection. Current FLuid and E-lyte status does not necessitate emergent need for Dialysis. Will re-evaluate in am Renal Txp - stable renal function, ct present Immunosuppression - May need to dec dose to help with Infection. ? Need for IVIG Rt Knee Osteomyelitis - For surgery today Needs IV Access for assisted ABX - would prefer to Place Groshong in chest and pt agrees (preferably when Afeb) - planned for freddie am HypoNatremia - resolved with better FSBS control HTN: Current BP meds reviewed. See orders for changes. Hypoalbuminemia - suspect due to infection Discussed Plan of Care and prognosis etc. at length with family ( and mom) COMMENT/RELEVANT DATA Meds Current Medications Medications (Trade) Dose Ordered Sig/Beena Start Time Stop Time Status Last Admin Dose Admin Acetaminophen (Tylenol) 325 mg PRN Q6HRS PRN 11/29/16 17:00 11/29/16 17:10 325 MG Aspirin (Ecotrin) 81 mg DAILY 11/29/16 09:00 11/29/16 09:36 81 MG Ceftaroline Fosamil 600 mg/ Sodium Chloride 250 ml @ 250 mls/hr Q12HR 11/29/16 10:00 11/30/16 09:26 250 MLS/HR Dextrose 12.5 gm PRN Q15MIN PRN 11/28/16 21:00 11/29/16 17:00 DC Duloxetine HCl (Cymbalta) 60 mg DAILY 11/29/16 09:00 11/30/16 09:28 60 MG Famotidine (Pepcid) 20 mg STK-MED ONCE 11/28/16 18:10 11/28/16 18:11 DC Fentanyl Citrate (Fentanyl 2ml Vial) 50 mcg PRN Q2HR PRN 11/30/16 00:45 11/30/16 09:27 50 MCG Fish Oil (Fish Oil) 1,000 mg DAILY 11/29/16 09:30 11/29/16 09:37 1,000 MG Fludrocortisone Acetate (Florinef) 0.1 mg DAILY 11/29/16 09:00 11/29/16 09:37 0.1 MG Hydromorphone HCl (Dilaudid) 0.5 mg PRN Q10MIN PRN 11/30/16 07:00 11/30/16 18:00 Insulin Aspart (Novolog Vial) 100 unit STK-MED ONCE 11/28/16 20:57 11/28/16 20:58 DC Insulin Aspart (Novolog) 5 units PRN BFRMEAL 11/29/16 17:00 Insulin Aspart 12 units 12 units TIDAC 11/29/16 11:30 11/30/16 09:38 12 UNITS Insulin Detemir (Levemir) 24 units QHS 11/29/16 21:00 11/29/16 21:03 24 UNITS Insulin Human Regular (Novolin R Vial) 20 unit 1X ONCE 11/28/16 21:00 11/28/16 21:01 DC 11/28/16 21:27 20 UNIT Lactated Ringer's (Iv Lactated Ringers) 1,000 ml @ 30 mls/hr Q24H 11/30/16 07:00 11/30/16 18:59 Lidocaine HCl 2 ml 1X PRN PRN 11/30/16 07:00 11/30/16 18:00 Linezolid 300 ml @ 300 mls/hr Q12HR 11/29/16 10:00 11/29/16 10:00 DC Magnesium Sulfate/ Dextrose (Magnesium Sulfate PREMIX 2GM) 50 ml @ 25 mls/hr PRN DAILY PRN 11/29/16 15:00 Morphine Sulfate 1 mg 1 mg PRN Q10MIN PRN 11/30/16 07:00 11/30/16 18:00 Mycophenolate Sodium (Myfortic) 360 mg BID 11/29/16 09:00 11/30/16 09:27 360 MG Niacin (Slo-Niacin) 500 mg QHS 11/29/16 21:00 11/29/16 21:03 500 MG Non-Formulary Medication 20 unit DAILYWSUP 11/29/16 17:00 UNV Ondansetron HCl (Zofran) 4 mg PRN Q6HRS PRN 11/30/16 07:00 11/30/16 18:00 Ondansetron HCl 4 mg 4 mg STK-MED ONCE 11/28/16 18:10 11/28/16 18:11 DC Phenylephrine HCl 1 mg STK-MED ONCE 11/28/16 18:10 11/28/16 18:11 DC Piperacillin Sod/ Tazobactam Sod (Zosyn Per Pharmacy) 1 each PRN DAILY PRN 11/28/16 14:00 Cancel Piperacillin Sod/ Tazobactam Sod 1 each 1 each PRN DAILY PRN 11/28/16 21:30 UNV Piperacillin Sod/ Tazobactam Sod/ Sodium Chloride (Zosyn/Iv Sodium Chloride 0.9% 50ml) 50 ml @ 100 mls/hr Q6HRS 11/29/16 00:00 UNV Prochlorperazine Edisylate (Compazine) 5 mg PACU PRN PRN 11/30/16 07:00 11/30/16 18:00 Prochlorperazine Edisylate 5 mg 5 mg PACU PRN PRN 11/28/16 17:30 11/29/16 17:29 DC 11/28/16 20:28 5 MG Propofol (Diprivan) 20 ml @ As Directed STK-MED ONCE 11/28/16 18:33 11/28/16 18:34 DC Sevoflurane (Ultane) 60 ml STK-MED ONCE 11/28/16 19:50 11/28/16 19:51 DC Sevoflurane 30 ml 30 ml STK-MED ONCE 11/28/16 18:57 11/28/16 18:58 DC Sodium Chloride (Iv Sodium Chloride 0.9% 1000ml Bag) 1,000 ml @ 30 mls/hr Q24H 11/28/16 18:00 11/28/16 18:00 30 MLS/HR Tacrolimus (Prograf) 1 mg BID 11/29/16 09:00 11/30/16 09:27 1 MG Tobramycin Sulfate 1.2 gm STK-MED ONCE 11/28/16 19:46 11/28/16 19:47 DC 11/28/16 19:30 1.2 GM Tranexamic Acid/ Sodium Chloride (Cyklokapron/Iv Sodium Chloride 0.9% 50ml) 60 ml @ 60 mls/hr 1X PERIOP ONCE 11/28/16 19:30 11/28/16 20:29 DC 11/28/16 19:30 60 MLS/HR Vancomycin HCl (Vanco Per Pharmacy) 1 each PRN DAILY PRN 11/28/16 14:00 11/29/16 09:32 DC 11/28/16 17:54 1 EACH Vancomycin HCl (Vanco) 10 gm STK-MED ONCE 11/28/16 19:21 11/28/16 19:22 DC 11/28/16 19:30 10 GM Vancomycin HCl 1 each 1 each 1X ONCE 11/30/16 01:30 11/30/16 01:31 Cancel Vancomycin HCl/ Sodium Chloride (Iv Sodium Chloride 0.9% 500ml Bag) 500 ml @ 250 mls/hr Q12H 11/29/16 02:00 11/29/16 09:32 DC 11/29/16 02:34 250 MLS/HR Vitamin D (Vitamin D3) 1,000 unit DAILY 11/29/16 09:00 11/29/16 09:36 1,000 UNIT Lab Laboratory Tests Test 11/29/16 10:40 11/29/16 16:10 11/29/16 20:36 11/30/16 03:55 Glucose (Fingerstick) 400mg/dL (70-99) 395mg/dL (70-99) 275mg/dL (70-99) White Blood Count 6.5x10^3/uL (4.0-11.0) Red Blood Count 3.66x10^6/uL (4.30-5.70) Hemoglobin 10.6g/dL (13.0-17.5) Hematocrit 32.1% (39.0-53.0) Mean Corpuscular Volume 88fL (79-100) Mean Corpuscular Hemoglobin 29pg (25-35) Mean Corpuscular Hemoglobin Concent 33g/dL (31-37) Red Cell Distribution Width 15.5% (11.5-14.5) Platelet Count 239x10^3/uL (140-400) Neutrophils (%) (Auto) 71% (31-73) Lymphocytes (%) (Auto) 13% (24-48) Monocytes (%) (Auto) 13% (0-9) Eosinophils (%) (Auto) 3% (0-3) Basophils (%) (Auto) 1% (0-3) Neutrophils # (Auto) 4.6x10^3uL (1.8-7.7) Lymphocytes # (Auto) 0.9x10^3/uL (1.0-4.8) Monocytes # (Auto) 0.8x10^3/uL (0.0-1.1) Eosinophils # (Auto) 0.2x10^3/uL (0.0-0.7) Basophils # (Auto) 0.0x10^3/uL (0.0-0.2) Sodium Level 139mmol/L (136-145) Potassium Level 4.0mmol/L (3.5-5.1) Chloride Level 102mmol/L (98-107) Carbon Dioxide Level 24mmol/L (21-32) Anion Gap 13 (6-14) Blood Urea Nitrogen 20mg/dL (8-26) Creatinine 1.3mg/dL (0.7-1.3) Estimated GFR (Cockcroft-Gault) 56.9 Glucose Level 362mg/dL (70-99) Calcium Level 8.3mg/dL (8.5-10.1) Phosphorus Level 2.8mg/dL (2.6-4.7) Magnesium Level 1.9mg/dL (1.8-2.4) Albumin 2.0g/dL (3.4-5.0) Test 2/23/17 07:00 11/30/16 08:13 Glucose (Fingerstick) 332mg/dL (70-99) Prothrombin Time 14.1SEC (11.7-14.0) Prothromb Time International Ratio 1.2 (0.8-1.1) ZAIN BURNETT MD Nov 30, 2016 10:22
[2016-11-30] MEDS ORDERED: MIDAZOLAM HCL 2 MG/2 ML VIAL. ONE (10:44)
[2016-11-30] MEDS ORDERED: LIDOCAINE 2% 100 MG/5 ML DISP.SYRIN. ONE (10:44)
[2016-11-30] MEDS ORDERED: ONDANSETRON PF 4 MG/2 ML VIAL. ONE (10:44)
[2016-11-30] MEDS ORDERED: PROPOFOL 20 ML IV ONE (10:44)
[2016-11-30] MEDS ORDERED: FENTANYL PF 250 MCG/5 ML VIAL. ONE (10:44)
--- NOTE | 2016-11-30 11:11 | PDOC ---
PROGRESS NOTES Subjective Subjective Pt awake and pleasant in conversation this am. Denies pain associated with fever. States he is hungry this am, but is NPO awaiting surgery this afternoon. Objective Objective Pt awake and alert. NAD at rest. Tmax 100.1. Lungs CTA bilat. Resp even and unlabored. Pt on RA, not requiring O2. Heart with RRR. No murmurs. Right knee with edema, erythema with CDI dressing. Vital Signs Date Time Temp Pulse Resp B/P Pulse Ox O2 Delivery O2 Flow Rate FiO2 11/30/16 09:57 Room Air 11/30/16 07:00 99.1 73 18 159/69 95 99.1 11/29/16 06:54 2.0 Intake and Output 11/30/16 07:00 Intake Total 250 ml Output Total 400 ml Balance -150 ml Intake Oral 0 ml IV Total 250 ml Output Urine Total 400 ml # Voids 1 # Bowel Movements 1 Assessment Assessment Problems Medical Problems: (1) Cellulitis and abscess of leg, except foot Status: Acute (2) Immunosuppression Status: Acute Plan Plan of Care 1. Right septic knee -s/p I and D on 11/29 -Culture with GPC, sensitivity pending -ID consulting -Ceftaroline initiated on 11/29 -Renal consulted regarding PICC line placement, recommend Groshong placement ~ scheduled for 12/01 2. 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 3. Acute on chronic renal failure -Renal consulted -Creat 1.5 4. DM, insulin dependent -Pt on Levemir and Novolog. -FSBS qid Comment Review of Relevant I have reviewed the following items shawn (where applicable) has been applied. Labs Laboratory Tests Test 11/28/16 12:25 11/28/16 16:20 11/28/16 20:22 11/29/16 00:39 White Blood Count 9.3x10^3/uL (4.0-11.0) Red Blood Count 4.66x10^6/uL (4.30-5.70) Hemoglobin 13.5g/dL (13.0-17.5) Hematocrit 39.9% (39.0-53.0) Mean Corpuscular Volume 86fL (79-100) Mean Corpuscular Hemoglobin 29pg (25-35) Mean Corpuscular Hemoglobin Concent 34g/dL (31-37) Red Cell Distribution Width 15.1% (11.5-14.5) Platelet Count 233x10^3/uL (140-400) Neutrophils (%) (Auto) 87% (31-73) Lymphocytes (%) (Auto) 5% (24-48) Monocytes (%) (Auto) 7% (0-9) Eosinophils (%) (Auto) 0% (0-3) Basophils (%) (Auto) 0% (0-3) Neutrophils # (Auto) 8.1x10^3uL (1.8-7.7) Lymphocytes # (Auto) 0.4x10^3/uL (1.0-4.8) Monocytes # (Auto) 0.7x10^3/uL (0.0-1.1) Eosinophils # (Auto) 0.0x10^3/uL (0.0-0.7) Basophils # (Auto) 0.0x10^3/uL (0.0-0.2) Segmented Neutrophils % 91% (35-66) Lymphocytes % 4% (24-48) Monocytes % 5% (0-10) Platelet Estimate Adequate (ADEQUATE) Erythrocyte Sedimentation Rate 112 (0-15) Sodium Level 127mmol/L (136-145) Potassium Level 4.1mmol/L (3.5-5.1) Chloride Level 93mmol/L (98-107) Carbon Dioxide Level 26mmol/L (21-32) Anion Gap 8 (6-14) Blood Urea Nitrogen 26mg/dL (8-26) Creatinine 1.5mg/dL (0.7-1.3) Estimated GFR (Cockcroft-Gault) 48.2 Glucose Level 446mg/dL (70-99) Calcium Level 9.5mg/dL (8.5-10.1) C-Reactive Protein, Quantitative 454.2mg/L (0-3.3) Glucose (Fingerstick) 382mg/dL (70-99) 361mg/dL (70-99) 291mg/dL (70-99) Test 11/29/16 07:14 11/29/16 10:40 11/29/16 16:10 11/29/16 20:36 Glucose (Fingerstick) 328mg/dL (70-99) 400mg/dL (70-99) 395mg/dL (70-99) 275mg/dL (70-99) Test 11/30/16 03:55 11/30/16 07:00 11/30/16 08:13 White Blood Count 6.5x10^3/uL (4.0-11.0) Red Blood Count 3.66x10^6/uL (4.30-5.70) Hemoglobin 10.6g/dL (13.0-17.5) Hematocrit 32.1% (39.0-53.0) Mean Corpuscular Volume 88fL (79-100) Mean Corpuscular Hemoglobin 29pg (25-35) Mean Corpuscular Hemoglobin Concent 33g/dL (31-37) Red Cell Distribution Width 15.5% (11.5-14.5) Platelet Count 239x10^3/uL (140-400) Neutrophils (%) (Auto) 71% (31-73) Lymphocytes (%) (Auto) 13% (24-48) Monocytes (%) (Auto) 13% (0-9) Eosinophils (%) (Auto) 3% (0-3) Basophils (%) (Auto) 1% (0-3) Neutrophils # (Auto) 4.6x10^3uL (1.8-7.7) Lymphocytes # (Auto) 0.9x10^3/uL (1.0-4.8) Monocytes # (Auto) 0.8x10^3/uL (0.0-1.1) Eosinophils # (Auto) 0.2x10^3/uL (0.0-0.7) Basophils # (Auto) 0.0x10^3/uL (0.0-0.2) Sodium Level 139mmol/L (136-145) Potassium Level 4.0mmol/L (3.5-5.1) Chloride Level 102mmol/L (98-107) Carbon Dioxide Level 24mmol/L (21-32) Anion Gap 13 (6-14) Blood Urea Nitrogen 20mg/dL (8-26) Creatinine 1.3mg/dL (0.7-1.3) Estimated GFR (Cockcroft-Gault) 56.9 Glucose Level 362mg/dL (70-99) Calcium Level 8.3mg/dL (8.5-10.1) Phosphorus Level 2.8mg/dL (2.6-4.7) Magnesium Level 1.9mg/dL (1.8-2.4) Albumin 2.0g/dL (3.4-5.0) Glucose (Fingerstick) 332mg/dL (70-99) Prothrombin Time 14.1SEC (11.7-14.0) Prothromb Time International Ratio 1.2 (0.8-1.1) Laboratory Tests Test 11/29/16 16:10 11/29/16 20:36 11/30/16 03:55 11/30/16 07:00 Glucose (Fingerstick) 395mg/dL (70-99) 275mg/dL (70-99) 332mg/dL (70-99) White Blood Count 6.5x10^3/uL (4.0-11.0) Red Blood Count 3.66x10^6/uL (4.30-5.70) Hemoglobin 10.6g/dL (13.0-17.5) Hematocrit 32.1% (39.0-53.0) Mean Corpuscular Volume 88fL (79-100) Mean Corpuscular Hemoglobin 29pg (25-35) Mean Corpuscular Hemoglobin Concent 33g/dL (31-37) Red Cell Distribution Width 15.5% (11.5-14.5) Platelet Count 239x10^3/uL (140-400) Neutrophils (%) (Auto) 71% (31-73) Lymphocytes (%) (Auto) 13% (24-48) Monocytes (%) (Auto) 13% (0-9) Eosinophils (%) (Auto) 3% (0-3) Basophils (%) (Auto) 1% (0-3) Neutrophils # (Auto) 4.6x10^3uL (1.8-7.7) Lymphocytes # (Auto) 0.9x10^3/uL (1.0-4.8) Monocytes # (Auto) 0.8x10^3/uL (0.0-1.1) Eosinophils # (Auto) 0.2x10^3/uL (0.0-0.7) Basophils # (Auto) 0.0x10^3/uL (0.0-0.2) Sodium Level 139mmol/L (136-145) Potassium Level 4.0mmol/L (3.5-5.1) Chloride Level 102mmol/L (98-107) Carbon Dioxide Level 24mmol/L (21-32) Anion Gap 13 (6-14) Blood Urea Nitrogen 20mg/dL (8-26) Creatinine 1.3mg/dL (0.7-1.3) Estimated GFR (Cockcroft-Gault) 56.9 Glucose Level 362mg/dL (70-99) Calcium Level 8.3mg/dL (8.5-10.1) Phosphorus Level 2.8mg/dL (2.6-4.7) Magnesium Level 1.9mg/dL (1.8-2.4) Albumin 2.0g/dL (3.4-5.0) Test 11/30/16 08:13 Prothrombin Time 14.1SEC (11.7-14.0) Prothromb Time International Ratio 1.2 (0.8-1.1) Microbiology 11/28/16 Gram Stain - Final, Complete Medications Current Medications Fentanyl Citrate 50 mcg 50 mcg PRN Q15MIN PRN IV PAIN GREATER THAN 3/10 Last administered on 11/29/16 06:24; Start 11/28/16 at 12:15; Stop 11/29/16 at 12:14 ; Status DC Sodium Chloride (Iv Sodium Chloride 0.9% 1000ml Bag) 1,000 ml @ 1,000 mls/hr Q1H IV Last administered on 11/28/16 12:39; Start 11/28/16 at 12:15; Stop at 13:14; Status DC Ondansetron HCl (Zofran) 4 mg PRN Q8HRS PRN IV NAUSEA/VOMITING; Start 11/28/16 at 14:00; Stop 11/29/16 at 13:59; Status DC Fentanyl Citrate (Fentanyl 2ml Vial) 50 mcg PRN Q2HR PRN IV PAIN Last administered on 11/29/16 09:38; Start 11/28/16 at 14:00; Stop 11/29/16 at 13:59 ; Status DC Acetaminophen (Tylenol) 650 mg PRN Q4HRS PRN PO FEVER; Start 11/28/16 at 14:00 ; Stop 11/29/16 at 13:59; Status DC Vancomycin HCl (Vanco Per Pharmacy) 1 each PRN DAILY PRN MC SEE COMMENTS Last administered on 11/28/16 17:54; Start 11/28/16 at 14:00; Stop 11/29/16 at 09:32 ; Status DC Piperacillin Sod/ Tazobactam Sod 1 each 1 each PRN DAILY PRN MC SEE COMMENTS; Start 11/28/16 at 14:00; Status Cancel Vancomycin HCl 2 gm/Sodium Chloride 500 ml @ 250 mls/hr 1X ONCE IV Last administered on 11/28/16 18:00; Start 11/28/16 at 14:00; Stop 11/28/16 at 15:59 ; Status DC Piperacillin Sod/ Tazobactam Sod 3.375 gm/Sodium Chloride 50 ml @ 100 mls/hr 1X ONCE IV Last administered on 11/28/16 14:18; Start 11/28/16 at 15:00; Stop 11/28/16 at 15:29; Status DC Piperacillin Sod/ Tazobactam Sod/ Sodium Chloride (Zosyn/Iv Sodium Chloride 0.9 % 50ml) 50 ml @ 100 mls/hr Q6HRS IV Last administered on 11/29/16 06:24; Start 11/28/16 at 19:00; Stop 11/29/16 at 09:36; Status DC Dextrose 12.5 gm PRN Q15MIN PRN IV SEE COMMENTS; Start 11/28/16 at 17:00 Ondansetron HCl (Zofran) 4 mg PRN Q6HRS PRN IV Nausea; Start 11/28/16 at 17:30 ; Stop 11/29/16 at 17:29; Status DC Fentanyl Citrate (Fentanyl 2ml Vial) 25 mcg PRN Q5MIN PRN IV MILD PAIN; Start 11/28/16 at 17:30; Stop 11/29/16 at 17:29; Status DC Fentanyl Citrate (Fentanyl 2ml Vial) 50 mcg PRN Q5MIN PRN IV MODERATE PAIN Last administered on 11/29/16 14:54; Start 11/28/16 at 17:30; Stop 11/29/16 at 17:29; Status DC Morphine Sulfate 1 mg 1 mg PRN Q10MIN PRN IV SEVERE PAIN; Start 11/28/16 at 17: 30; Stop 11/29/16 at 17:29; Status DC Lactated Ringer's (Iv Lactated Ringers) 1,000 ml @ 30 mls/hr Q24H IV ; Start at 17:24; Stop 11/29/16 at 05:23; Status DC Lidocaine HCl 2 ml 1X PRN PRN ID IV START; Start 11/28/16 at 17:30; Stop at 17:29; Status DC Hydromorphone HCl (Dilaudid) 0.5 mg PRN Q10MIN PRN IV SEV PAIN,Second choice; Start 11/28/16 at 17:30; Stop 11/29/16 at 17:29; Status DC Prochlorperazine Edisylate 5 mg 5 mg PACU PRN PRN IV NAUSEA Last administered on 11/28/16 20:28; Start 11/28/16 at 17:30; Stop 11/29/16 at 17:29; Status DC Vancomycin HCl/ Sodium Chloride (Iv Sodium Chloride 0.9% 500ml Bag) 500 ml @ 250 mls/hr Q12H IV Last administered on 11/29/16 02:34; Start 11/29/16 at 02: 00; Stop 11/29/16 at 09:32; Status DC Vancomycin HCl 1 each 1 each 1X ONCE MC ; Start 11/30/16 at 01:30; Stop at 01:31; Status Cancel Sodium Chloride 1,000 ml @ 30 mls/hr Q24H IV Last administered on 11/28/16 18 :00; Start 11/28/16 at 18:00 Propofol (Diprivan) 20 ml @ As Directed STK-MED ONCE IV ; Start 11/28/16 at 18: 10; Stop 11/28/16 at 18:11; Status DC Phenylephrine HCl 1 mg STK-MED ONCE IV ; Start 11/28/16 at 18:10; Stop 11/28/16 at 18:11; Status DC Fentanyl Citrate (Fentanyl 2ml Vial) 100 mcg STK-MED ONCE .ROUTE ; Start at 18:10; Stop 11/28/16 at 18:11; Status DC Famotidine (Pepcid) 20 mg STK-MED ONCE .ROUTE ; Start 11/28/16 at 18:10; Stop at 18:11; Status DC Ondansetron HCl 4 mg 4 mg STK-MED ONCE .ROUTE ; Start 11/28/16 at 18:10; Stop at 18:11; Status DC Propofol (Diprivan) 20 ml @ As Directed STK-MED ONCE IV ; Start 11/28/16 at 18: 33; Stop 11/28/16 at 18:34; Status DC Sevoflurane (Ultane) 60 ml STK-MED ONCE IH ; Start 11/28/16 at 18:57; Stop 11/28 at 18:58; Status DC Sevoflurane 30 ml 30 ml STK-MED ONCE IH ; Start 11/28/16 at 18:57; Stop at 18:58; Status DC Tranexamic Acid/ Sodium Chloride (Cyklokapron/Iv Sodium Chloride 0.9% 50ml) 60 ml @ 60 mls/hr 1X PERIOP ONCE INJ Last administered on 11/28/16 19:30; Start 11/28/16 at 19:30; Stop 11/28/16 at 20:29; Status DC Vancomycin HCl (Vanco) 10 gm STK-MED ONCE .ROUTE Last administered on 19:30; Start 11/28/16 at 19:21; Stop 11/28/16 at 19:22; Status DC Tobramycin Sulfate 1.2 gm STK-MED ONCE .ROUTE Last administered on 11/28/16 19 :30; Start 11/28/16 at 19:21; Stop 11/28/16 at 19:22; Status DC Tobramycin Sulfate 1.2 gm STK-MED ONCE .ROUTE Last administered on 11/28/16 19 :30; Start 11/28/16 at 19:46; Stop 11/28/16 at 19:47; Status DC Tobramycin Sulfate 1.2 gm STK-MED ONCE .ROUTE Last administered on 11/28/16 19 :30; Start 11/28/16 at 19:46; Stop 11/28/16 at 19:47; Status DC Tobramycin Sulfate 1.2 gm STK-MED ONCE .ROUTE Last administered on 11/28/16 19 :30; Start 11/28/16 at 19:46; Stop 11/28/16 at 19:47; Status DC Tobramycin Sulfate 1.2 gm STK-MED ONCE .ROUTE Last administered on 11/28/16 19 :30; Start 11/28/16 at 19:46; Stop 11/28/16 at 19:47; Status DC Tobramycin Sulfate 1.2 gm STK-MED ONCE .ROUTE Last administered on 11/28/16 19 :30; Start 11/28/16 at 19:46; Stop 11/28/16 at 19:47; Status DC Sevoflurane (Ultane) 60 ml STK-MED ONCE IH ; Start 11/28/16 at 19:50; Stop 11/28 at 19:51; Status DC Dextrose 12.5 gm PRN Q15MIN PRN IV SEE COMMENTS; Start 11/28/16 at 21:00; Stop 11/29/16 at 17:00; Status DC Insulin Human Regular (Novolin R Vial) 20 unit 1X ONCE IV Last administered on 11/28/16 21:27; Start 11/28/16 at 21:00; Stop 11/28/16 at 21:01; Status DC Insulin Aspart (Novolog Vial) 100 unit STK-MED ONCE SQ ; Start 11/28/16 at 20:57 ; Stop 11/28/16 at 20:58; Status DC Piperacillin Sod/ Tazobactam Sod 1 each 1 each PRN DAILY PRN MC SEE COMMENTS; Start 11/28/16 at 21:30; Status UNV Piperacillin Sod/ Tazobactam Sod/ Sodium Chloride (Zosyn/Iv Sodium Chloride 0.9 % 50ml) 50 ml @ 100 mls/hr Q6HRS IV ; Start 11/29/16 at 00:00; Status UNV Aspirin (Ecotrin) 81 mg DAILY PO Last administered on 11/29/16 09:36; Start at 09:00 Fludrocortisone Acetate (Florinef) 0.1 mg DAILY PO Last administered on 09:37; Start 11/29/16 at 09:00 Mycophenolate Sodium (Myfortic) 360 mg BID PO ; Start 11/29/16 at 09:00; Stop at 09:00; Status DC Tacrolimus (Prograf) 1 mg BID PO Last administered on 11/30/16 09:27; Start at 09:00 Vitamin D (Vitamin D3) 1,000 unit DAILY PO Last administered on 11/29/16 09:36 ; Start 11/29/16 at 09:00 Duloxetine HCl (Cymbalta) 60 mg DAILY PO Last administered on 11/30/16 09:28; Start 11/29/16 at 09:00 Insulin Aspart (Novolog) 12 units DAILYBFRSUP SQ Last administered on 17:38; Start 11/29/16 at 17:00 Insulin Aspart (Novolog) 14 units DAILYWLUN SQ Last administered on 11/29/16 12:21; Start 11/29/16 at 12:00 Non-Formulary Medication 20 unit DAILYWSUP SQ ; Start 11/29/16 at 17:00; Status UNV Insulin Detemir (Levemir) 24 units QHS SQ Last administered on 11/29/16 21:03 ; Start 11/29/16 at 21:00 Niacin (Slo-Niacin) 500 mg QHS PO Last administered on 11/29/16 21:03; Start 11/29/16 at 21:00 Mycophenolate Sodium (Myfortic) 360 mg BID PO Last administered on 11/30/16 09 :27; Start 11/29/16 at 09:00 Fish Oil (Fish Oil) 1,000 mg DAILY PO Last administered on 11/29/16 09:37; Start 11/29/16 at 09:30 Insulin Aspart 12 units 12 units TIDAC SQ Last administered on 11/30/16 09:38 ; Start 11/29/16 at 11:30 Linezolid 300 ml @ 300 mls/hr Q12HR IV ; Start 11/29/16 at 10:00; Stop at 10:00; Status DC Ceftaroline Fosamil 600 mg/ Sodium Chloride 250 ml @ 250 mls/hr Q12HR IV Last administered on 11/30/16 09:26; Start 11/29/16 at 10:00 Magnesium Sulfate/ Dextrose (Magnesium Sulfate PREMIX 2GM) 50 ml @ 25 mls/hr PRN DAILY PRN IV for Mag < 1.7 on am labs; Start 11/29/16 at 15:00 Ondansetron HCl (Zofran) 4 mg PRN Q6HRS PRN IV Nausea; Start 11/30/16 at 07:00 ; Stop 11/30/16 at 18:00 Fentanyl Citrate (Fentanyl 2ml Vial) 25 mcg PRN Q5MIN PRN IV MILD PAIN; Start 11/30/16 at 07:00; Stop 11/30/16 at 18:00 Fentanyl Citrate (Fentanyl 2ml Vial) 50 mcg PRN Q5MIN PRN IV MODERATE PAIN Last administered on 11/29/16 19:35; Start 11/30/16 at 07:00; Stop 11/30/16 at 18:00 Morphine Sulfate 1 mg 1 mg PRN Q10MIN PRN IV SEVERE PAIN; Start 11/30/16 at 07: 00; Stop 11/30/16 at 18:00 Lactated Ringer's (Iv Lactated Ringers) 1,000 ml @ 30 mls/hr Q24H IV ; Start at 07:00; Stop 11/30/16 at 18:59 Lidocaine HCl 2 ml 1X PRN PRN ID IV START; Start 11/30/16 at 07:00; Stop at 18:00 Hydromorphone HCl (Dilaudid) 0.5 mg PRN Q10MIN PRN IV SEVERE PAIN, Second choice; Start 11/30/16 at 07:00; Stop 11/30/16 at 18:00 Prochlorperazine Edisylate (Compazine) 5 mg PACU PRN PRN IV NAUSEA; Start 11/30 at 07:00; Stop 11/30/16 at 18:00 Acetaminophen (Tylenol) 325 mg PRN Q6HRS PRN PO MILD PAIN / TEMP Last administered on 11/29/16 17:10; Start 11/29/16 at 17:00 Insulin Aspart (Novolog) 5 units PRN BFRMEAL SQ ; Start 11/29/16 at 17:00 Fentanyl Citrate (Fentanyl 2ml Vial) 50 mcg PRN Q2HR PRN IV PAIN Last administered on 11/30/16 09:27; Start 11/30/16 at 00:45 Ondansetron HCl 4 mg 4 mg STK-MED ONCE .ROUTE ; Start 11/30/16 at 10:44; Stop at 10:45; Status DC Propofol (Diprivan) 20 ml @ As Directed STK-MED ONCE IV ; Start 11/30/16 at 10: 44; Stop 11/30/16 at 10:45; Status DC Lidocaine HCl 100 mg STK-MED ONCE .ROUTE ; Start 11/30/16 at 10:44; Stop at 10:45; Status DC Midazolam HCl (Versed) 2 mg STK-MED ONCE .ROUTE ; Start 11/30/16 at 10:44; Stop 11/30/16 at 10:45; Status DC Fentanyl Citrate (Fentanyl 5ml Vial) 250 mcg STK-MED ONCE .ROUTE ; Start at 10:44; Stop 11/30/16 at 10:45; Status DC Active Scripts Active Reported Novolog (Insulin Aspart) 100 Unit/1 Ml Cartridge 14 Unit SQ DAILYWLUN Novolog (Insulin Aspart) 100 Unit/1 Ml Cartridge 12 Unit SQ DAILYBFRSUP Prograf (Tacrolimus) 1 Mg Capsule 1 Cap PO BID Evergreen-3 (Evergreen-3 Fatty Acids) 1,000 Mg Capsule 1,000 Mg PO Novolog (Insulin Aspart) 100 Unit/1 Ml Cartridge 20 Unit SQ DAILYWSUP Lantus (Insulin Glargine,Hum.rec.anlog) 100 Unit/1 Ml Vial 24 Unit SQ HS Niacin 500 Mg Tablet 500 Mg PO HS Aspir 81 (Aspirin) 81 Mg Tablet. 1 Tab PO DAILY Vitamin D-3 (Cholecalciferol (Vitamin D3)) 2,000 Unit Capsule 1,000 Unit PO DAILY Krill Oil 500 Mg Capsule 500 Mg PO Fludrocortisone Acetate 0.1 Mg Tablet 1 Tab PO DAILY Myfortic (Mycophenolate Sodium) 360 Mg Tablet. 360 Mg PO BID Cymbalta (Duloxetine Hcl) 60 Mg Capsule. 1 Cap PO DAILY Vitals/I & O Vital Sign - Last 24 Hours 11/29/16 11/29/16 11/29/16 11/29/16 14:54 15:00 15:24 19:00 Temp 100.1 98.2 100.1 98.2 Pulse 84 82 Resp 16 18 B/P 137/55 131/51 Pulse Ox 92 94 O2 Delivery Room Air Room Air Room Air Room Air 2/22/17 2/22/17 2/22/17 2/22/17 19:35 20:30 21:03 23:00 Temp 98.5 98.5 Pulse 78 Resp 18 B/P 163/68 Pulse Ox 94 O2 Delivery Room Air Room Air Room Air Room Air 11/30/16 11/30/16 11/30/16 11/30/16 00:48 03:00 07:00 08:10 Temp 98.5 99.1 98.5 99.1 Pulse 85 73 Resp 18 18 B/P 158/59 159/69 Pulse Ox 90 95 O2 Delivery Room Air Room Air Room Air Room Air 11/30/16 11/30/16 09:27 09:57 O2 Delivery Room Air Room Air Intake and Output 11/29/16 11/29/16 11/30/16 15:00 23:00 07:00 Intake Total 250 ml 0 ml Output Total 400 ml Balance 250 ml -400 ml TIMA VILLEGAS MD Nov 30, 2016 11:11
[2016-11-30] MEDS ORDERED: LIDOCAINE 1% PF 30 ML VIAL. ONE ×2 (13:03→15:15)
[2016-11-30] MEDS ORDERED: BUPIVACAINE MPF 0.5% 30 ML VIAL. ONE (13:03)
[2016-11-30] MEDS ORDERED: TOBRAMYCIN POWDER 1.2 GM VIAL. ONE (13:57)
[2016-11-30] MEDS ORDERED: VANCOMYCIN 1 GM VIAL. ONE (13:57)
[2016-11-30] MEDS ORDERED: DESFLURANE 61 TO 120 MINUTES IH ONE (14:33)
[2016-11-30] MEDS: MORPHINE SULFATE 2 MG/ML DISP.SYRIN. IV PRN ×2 (15:13→15:37)
--- NOTE | 2016-11-30 15:20 | PDOC ---
BRIEF OPERATIVE NOTE Date: Nov 30, 2016 Pre-Op Diagnosis Right knee septic arthritis Post-Op Diagnosis Right knee septic arthritis Procedure Performed Excisional debridement, removal of antibiotic beads, placement of stimulan beads and wound vac placement. Surgeon Madison Redman MD Library Historian Co-Surgeon: Crescencio Banda Anesthesia Type: General Findings minimal necrotic tissue, one pocket of pus intratendinous in the quadricep tendon, patellar tendon still looks questionable. cartilage appears pitted Complications none Additional Remarks The patient has a wound vac placed. Will re-eval on sunday AM, at that time the decision to debride more of the patellar tendon will be made. If he loses much more of the patellar tendon he will not have an intact extensor mechanism and will have a difficult time ambulating without a brace. The tissues look as though the antibiotics are doing their job. I remain cautiously optimistic. Wound vac exchange planned for sunday. MADISON REDMAN MD Nov 30, 2016 15:19
[2016-11-30] MEDS ORDERED: INSULIN ASPART 100 UNIT/ML 10ML VIAL. SQ ONE (15:30)
--- NOTE | 2016-11-30 15:47 | PDOC2 ---
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 He states that he scraped his knee a few days ago, and that it has since swollen up. He has a history of patellar tendon repair on his right knee nearly one year ago in December 2015. He states that his knee did pretty well after surgery. He reports no wound healing issues after surgery. He also had a chronic wound on his right heel that was down to the achilles tendon. He worked with the wound clinic from June to September and was able to get it to heal. He reports flu-like symptoms for nearly a week. He has been in bed for the past few days unable to put weight on his knee. His knee developed a blister this am, so he went to urgent care to have it checked out. The ER probed the blister with a needle and janice purulence was expressed, so they consulted me for a prepatellar bursitis vs cellulitus. He has not had anything to eat or drink since 10 am this morning. Past Medical History CENTRAL NERVOUS SYSTEM: Periperal neuropathy Musculoskeletal: Muscle atrophy, Weakness Renal/: Other Endocrine: Diabetes Past Surgical History Past Surgical History: Cataract Removal, Other Family History Family History: Diabetes, Kidney Disease Social History ALCOHOL: none Drugs: None Lives: with Family Domestic Violence: Neg Current Problem List Problem List Problems Medical Problems: (1) Cellulitis and abscess of leg, except foot Status: Acute (2) Immunosuppression Status: Acute Current Medications Current Medications Current Medications Fentanyl Citrate 50 mcg 50 mcg PRN Q15MIN PRN IV PAIN GREATER THAN 3/10 Last administered on 11/29/16 06:24; Start 11/28/16 at 12:15; Stop 11/29/16 at 12:14 ; Status DC Sodium Chloride (Iv Sodium Chloride 0.9% 1000ml Bag) 1,000 ml @ 1,000 mls/hr Q1H IV Last administered on 11/28/16 12:39; Start 11/28/16 at 12:15; Stop at 13:14; Status DC Ondansetron HCl (Zofran) 4 mg PRN Q8HRS PRN IV NAUSEA/VOMITING; Start 11/28/16 at 14:00; Stop 11/29/16 at 13:59; Status DC Fentanyl Citrate (Fentanyl 2ml Vial) 50 mcg PRN Q2HR PRN IV PAIN Last administered on 11/29/16 09:38; Start 11/28/16 at 14:00; Stop 11/29/16 at 13:59 ; Status DC Acetaminophen (Tylenol) 650 mg PRN Q4HRS PRN PO FEVER; Start 11/28/16 at 14:00 ; Stop 11/29/16 at 13:59; Status DC Vancomycin HCl (Vanco Per Pharmacy) 1 each PRN DAILY PRN MC SEE COMMENTS Last administered on 11/28/16 17:54; Start 11/28/16 at 14:00; Stop 11/29/16 at 09:32 ; Status DC Piperacillin Sod/ Tazobactam Sod 1 each 1 each PRN DAILY PRN MC SEE COMMENTS; Start 11/28/16 at 14:00; Status Cancel Vancomycin HCl 2 gm/Sodium Chloride 500 ml @ 250 mls/hr 1X ONCE IV Last administered on 11/28/16 18:00; Start 11/28/16 at 14:00; Stop 11/28/16 at 15:59 ; Status DC Piperacillin Sod/ Tazobactam Sod 3.375 gm/Sodium Chloride 50 ml @ 100 mls/hr 1X ONCE IV Last administered on 11/28/16 14:18; Start 11/28/16 at 15:00; Stop 11/28/16 at 15:29; Status DC Piperacillin Sod/ Tazobactam Sod/ Sodium Chloride (Zosyn/Iv Sodium Chloride 0.9 % 50ml) 50 ml @ 100 mls/hr Q6HRS IV Last administered on 11/29/16 06:24; Start 11/28/16 at 19:00; Stop 11/29/16 at 09:36; Status DC Dextrose 12.5 gm PRN Q15MIN PRN IV SEE COMMENTS; Start 11/28/16 at 17:00 Ondansetron HCl (Zofran) 4 mg PRN Q6HRS PRN IV Nausea; Start 11/28/16 at 17:30 ; Stop 11/29/16 at 17:29; Status DC Fentanyl Citrate (Fentanyl 2ml Vial) 25 mcg PRN Q5MIN PRN IV MILD PAIN; Start 11/28/16 at 17:30; Stop 11/29/16 at 17:29; Status DC Fentanyl Citrate (Fentanyl 2ml Vial) 50 mcg PRN Q5MIN PRN IV MODERATE PAIN Last administered on 11/29/16 14:54; Start 11/28/16 at 17:30; Stop 11/29/16 at 17:29; Status DC Morphine Sulfate 1 mg 1 mg PRN Q10MIN PRN IV SEVERE PAIN; Start 11/28/16 at 17: 30; Stop 11/29/16 at 17:29; Status DC Lactated Ringer's (Iv Lactated Ringers) 1,000 ml @ 30 mls/hr Q24H IV ; Start at 17:24; Stop 11/29/16 at 05:23; Status DC Lidocaine HCl 2 ml 1X PRN PRN ID IV START; Start 11/28/16 at 17:30; Stop at 17:29; Status DC Hydromorphone HCl (Dilaudid) 0.5 mg PRN Q10MIN PRN IV SEV PAIN,Second choice; Start 11/28/16 at 17:30; Stop 11/29/16 at 17:29; Status DC Prochlorperazine Edisylate 5 mg 5 mg PACU PRN PRN IV NAUSEA Last administered on 11/28/16 20:28; Start 11/28/16 at 17:30; Stop 11/29/16 at 17:29; Status DC Vancomycin HCl/ Sodium Chloride (Iv Sodium Chloride 0.9% 500ml Bag) 500 ml @ 250 mls/hr Q12H IV Last administered on 11/29/16 02:34; Start 11/29/16 at 02: 00; Stop 11/29/16 at 09:32; Status DC Vancomycin HCl 1 each 1 each 1X ONCE MC ; Start 11/30/16 at 01:30; Stop at 01:31; Status Cancel Sodium Chloride 1,000 ml @ 30 mls/hr Q24H IV Last administered on 11/28/16 18 :00; Start 11/28/16 at 18:00 Propofol (Diprivan) 20 ml @ As Directed STK-MED ONCE IV ; Start 11/28/16 at 18: 10; Stop 11/28/16 at 18:11; Status DC Phenylephrine HCl 1 mg STK-MED ONCE IV ; Start 11/28/16 at 18:10; Stop 11/28/16 at 18:11; Status DC Fentanyl Citrate (Fentanyl 2ml Vial) 100 mcg STK-MED ONCE .ROUTE ; Start at 18:10; Stop 11/28/16 at 18:11; Status DC Famotidine (Pepcid) 20 mg STK-MED ONCE .ROUTE ; Start 11/28/16 at 18:10; Stop at 18:11; Status DC Ondansetron HCl 4 mg 4 mg STK-MED ONCE .ROUTE ; Start 11/28/16 at 18:10; Stop at 18:11; Status DC Propofol (Diprivan) 20 ml @ As Directed STK-MED ONCE IV ; Start 11/28/16 at 18: 33; Stop 11/28/16 at 18:34; Status DC Sevoflurane (Ultane) 60 ml STK-MED ONCE IH ; Start 11/28/16 at 18:57; Stop 11/28 at 18:58; Status DC Sevoflurane 30 ml 30 ml STK-MED ONCE IH ; Start 11/28/16 at 18:57; Stop at 18:58; Status DC Tranexamic Acid/ Sodium Chloride (Cyklokapron/Iv Sodium Chloride 0.9% 50ml) 60 ml @ 60 mls/hr 1X PERIOP ONCE INJ Last administered on 11/28/16 19:30; Start 11/28/16 at 19:30; Stop 11/28/16 at 20:29; Status DC Vancomycin HCl (Vanco) 10 gm STK-MED ONCE .ROUTE Last administered on 19:30; Start 11/28/16 at 19:21; Stop 11/28/16 at 19:22; Status DC Tobramycin Sulfate 1.2 gm STK-MED ONCE .ROUTE Last administered on 11/28/16 19 :30; Start 11/28/16 at 19:21; Stop 11/28/16 at 19:22; Status DC Tobramycin Sulfate 1.2 gm STK-MED ONCE .ROUTE Last administered on 11/28/16 19 :30; Start 11/28/16 at 19:46; Stop 11/28/16 at 19:47; Status DC Tobramycin Sulfate 1.2 gm STK-MED ONCE .ROUTE Last administered on 11/28/16 19 :30; Start 11/28/16 at 19:46; Stop 11/28/16 at 19:47; Status DC Tobramycin Sulfate 1.2 gm STK-MED ONCE .ROUTE Last administered on 11/28/16 19 :30; Start 11/28/16 at 19:46; Stop 11/28/16 at 19:47; Status DC Tobramycin Sulfate 1.2 gm STK-MED ONCE .ROUTE Last administered on 11/28/16 19 :30; Start 11/28/16 at 19:46; Stop 11/28/16 at 19:47; Status DC Tobramycin Sulfate 1.2 gm STK-MED ONCE .ROUTE Last administered on 11/28/16 19 :30; Start 11/28/16 at 19:46; Stop 11/28/16 at 19:47; Status DC Sevoflurane (Ultane) 60 ml STK-MED ONCE IH ; Start 11/28/16 at 19:50; Stop 11/28 at 19:51; Status DC Dextrose 12.5 gm PRN Q15MIN PRN IV SEE COMMENTS; Start 11/28/16 at 21:00; Stop 11/29/16 at 17:00; Status DC Insulin Human Regular (Novolin R Vial) 20 unit 1X ONCE IV Last administered on 11/28/16 21:27; Start 11/28/16 at 21:00; Stop 11/28/16 at 21:01; Status DC Insulin Aspart (Novolog Vial) 100 unit STK-MED ONCE SQ ; Start 11/28/16 at 20:57 ; Stop 11/28/16 at 20:58; Status DC Piperacillin Sod/ Tazobactam Sod 1 each 1 each PRN DAILY PRN MC SEE COMMENTS; Start 11/28/16 at 21:30; Status UNV Piperacillin Sod/ Tazobactam Sod/ Sodium Chloride (Zosyn/Iv Sodium Chloride 0.9 % 50ml) 50 ml @ 100 mls/hr Q6HRS IV ; Start 11/29/16 at 00:00; Status UNV Aspirin (Ecotrin) 81 mg DAILY PO Last administered on 11/29/16 09:36; Start at 09:00 Fludrocortisone Acetate (Florinef) 0.1 mg DAILY PO Last administered on 09:37; Start 11/29/16 at 09:00 Mycophenolate Sodium (Myfortic) 360 mg BID PO ; Start 11/29/16 at 09:00; Stop at 09:00; Status DC Tacrolimus (Prograf) 1 mg BID PO Last administered on 11/30/16 09:27; Start at 09:00 Vitamin D (Vitamin D3) 1,000 unit DAILY PO Last administered on 11/29/16 09:36 ; Start 11/29/16 at 09:00 Duloxetine HCl (Cymbalta) 60 mg DAILY PO Last administered on 11/30/16 09:28; Start 11/29/16 at 09:00 Insulin Aspart (Novolog) 12 units DAILYBFRSUP SQ Last administered on 17:38; Start 11/29/16 at 17:00 Insulin Aspart (Novolog) 14 units DAILYWLUN SQ Last administered on 11/29/16 12:21; Start 11/29/16 at 12:00 Non-Formulary Medication 20 unit DAILYWSUP SQ ; Start 11/29/16 at 17:00; Status UNV Insulin Detemir (Levemir) 24 units QHS SQ Last administered on 11/29/16 21:03 ; Start 11/29/16 at 21:00 Niacin (Slo-Niacin) 500 mg QHS PO Last administered on 11/29/16 21:03; Start 11/29/16 at 21:00 Mycophenolate Sodium (Myfortic) 360 mg BID PO Last administered on 11/30/16 09 :27; Start 11/29/16 at 09:00 Fish Oil (Fish Oil) 1,000 mg DAILY PO Last administered on 11/29/16 09:37; Start 11/29/16 at 09:30 Insulin Aspart 12 units 12 units TIDAC SQ Last administered on 11/30/16 09:38 ; Start 11/29/16 at 11:30 Linezolid 300 ml @ 300 mls/hr Q12HR IV ; Start 11/29/16 at 10:00; Stop at 10:00; Status DC Ceftaroline Fosamil 600 mg/ Sodium Chloride 250 ml @ 250 mls/hr Q12HR IV Last administered on 11/30/16 09:26; Start 11/29/16 at 10:00 Magnesium Sulfate/ Dextrose (Magnesium Sulfate PREMIX 2GM) 50 ml @ 25 mls/hr PRN DAILY PRN IV for Mag < 1.7 on am labs; Start 11/29/16 at 15:00 Ondansetron HCl (Zofran) 4 mg PRN Q6HRS PRN IV Nausea; Start 11/30/16 at 07:00 ; Stop 11/30/16 at 18:00 Fentanyl Citrate (Fentanyl 2ml Vial) 25 mcg PRN Q5MIN PRN IV MILD PAIN; Start 11/30/16 at 07:00; Stop 11/30/16 at 18:00 Fentanyl Citrate (Fentanyl 2ml Vial) 50 mcg PRN Q5MIN PRN IV MODERATE PAIN Last administered on 11/29/16 19:35; Start 11/30/16 at 07:00; Stop 11/30/16 at 18:00 Morphine Sulfate 1 mg 1 mg PRN Q10MIN PRN IV SEVERE PAIN Last administered on t 15:13; Start 11/30/16 at 07:00; Stop 11/30/16 at 18:00 Lactated Ringer's (Iv Lactated Ringers) 1,000 ml @ 30 mls/hr Q24H IV ; Start at 07:00; Stop 11/30/16 at 18:59 Lidocaine HCl 2 ml 1X PRN PRN ID IV START; Start 11/30/16 at 07:00; Stop at 18:00 Hydromorphone HCl (Dilaudid) 0.5 mg PRN Q10MIN PRN IV SEVERE PAIN, Second choice; Start 11/30/16 at 07:00; Stop 11/30/16 at 18:00 Prochlorperazine Edisylate (Compazine) 5 mg PACU PRN PRN IV NAUSEA; Start 11/30 at 07:00; Stop 11/30/16 at 18:00 Acetaminophen (Tylenol) 325 mg PRN Q6HRS PRN PO MILD PAIN / TEMP Last administered on 11/29/16 17:10; Start 11/29/16 at 17:00 Insulin Aspart (Novolog) 5 units PRN BFRMEAL SQ ; Start 11/29/16 at 17:00 Fentanyl Citrate (Fentanyl 2ml Vial) 50 mcg PRN Q2HR PRN IV PAIN Last administered on 11/30/16 09:27; Start 11/30/16 at 00:45 Ondansetron HCl 4 mg 4 mg STK-MED ONCE .ROUTE ; Start 11/30/16 at 10:44; Stop at 10:45; Status DC Propofol (Diprivan) 20 ml @ As Directed STK-MED ONCE IV ; Start 11/30/16 at 10: 44; Stop 11/30/16 at 10:45; Status DC Lidocaine HCl 100 mg STK-MED ONCE .ROUTE ; Start 11/30/16 at 10:44; Stop at 10:45; Status DC Midazolam HCl (Versed) 2 mg STK-MED ONCE .ROUTE ; Start 11/30/16 at 10:44; Stop 11/30/16 at 10:45; Status DC Fentanyl Citrate (Fentanyl 5ml Vial) 250 mcg STK-MED ONCE .ROUTE ; Start at 10:44; Stop 11/30/16 at 10:45; Status DC Lidocaine HCl 30 ml STK-MED ONCE .ROUTE ; Start 11/30/16 at 13:03; Stop at 13:04; Status DC Bupivacaine HCl (Sensorcaine Mpf 0.5%) 30 ml STK-MED ONCE .ROUTE ; Start at 13:03; Stop 11/30/16 at 13:04; Status DC Vancomycin HCl 1 gm STK-MED ONCE .ROUTE Last administered on 11/30/16 15:02; Start 11/30/16 at 13:57; Stop 11/30/16 at 13:58; Status DC Tobramycin Sulfate 1.2 gm STK-MED ONCE .ROUTE Last administered on 11/30/16 15 :01; Start 11/30/16 at 13:57; Stop 11/30/16 at 13:58; Status DC Desflurane (Suprane) 60 ml STK-MED ONCE IH ; Start 11/30/16 at 14:33; Stop 11/30 at 14:34; Status DC Lidocaine HCl 30 ml STK-MED ONCE .ROUTE ; Start 11/30/16 at 15:15; Stop at 15:16; Status DC Active Scripts Active Reported Novolog (Insulin Aspart) 100 Unit/1 Ml Cartridge 14 Unit SQ DAILYWLUN Novolog (Insulin Aspart) 100 Unit/1 Ml Cartridge 12 Unit SQ DAILYBFRSUP Prograf (Tacrolimus) 1 Mg Capsule 1 Cap PO BID [place]-3 ([place]-3 Fatty Acids) 1,000 Mg Capsule 1,000 Mg PO Novolog (Insulin Aspart) 100 Unit/1 Ml Cartridge 20 Unit SQ DAILYWSUP Lantus (Insulin Glargine,Hum.rec.anlog) 100 Unit/1 Ml Vial 24 Unit SQ HS Niacin 500 Mg Tablet 500 Mg PO HS Aspir 81 (Aspirin) 81 Mg Tablet. 1 Tab PO DAILY Vitamin D-3 (Cholecalciferol (Vitamin D3)) 2,000 Unit Capsule 1,000 Unit PO DAILY Krill Oil 500 Mg Capsule 500 Mg PO Fludrocortisone Acetate 0.1 Mg Tablet 1 Tab PO DAILY Myfortic (Mycophenolate Sodium) 360 Mg Tablet. 360 Mg PO BID Cymbalta (Duloxetine Hcl) 60 Mg Capsule. 1 Cap PO DAILY Allergies Allergies: Coded Allergies: No Known Allergies (Verified Allergy, Intermediate, 11/30/16) ROS General: YES: Appetite (decreased), Chills, Fatigue, Malaise, Night Sweats Musculoskeletal: Yes Gait Disturbance, Yes Joint Pain, Yes Joint Stiffness, Yes Joint Swelling Skin: Yes Other (blisters) Physical Exam General: Alert, Oriented X3, Cooperative, No acute distress MUSCULOSKELETAL: Other (RIGHT LOWER EXTREMITY red, swollen, hot over the suprapatellar pouch. small area of blistering inferiorly over the patella tendon , no drainage currently. petichial changes distally onto the anterior tibia. dense neuropathy and decreased sensation to light touch to the midshin. small scab on posterior heel. ) Vitals VITALS Vital Signs Date Time Temp Pulse Resp B/P Pulse Ox O2 Delivery O2 Flow Rate FiO2 11/30/16 15:17 69 20 153/57 95 Room Air 11/30/16 15:02 10 11/30/16 14:46 97.2 97.2 Labs Labs Laboratory Tests Test 11/28/16 16:20 11/28/16 20:22 11/29/16 00:39 11/29/16 07:14 Glucose (Fingerstick) 382mg/dL (70-99) 361mg/dL (70-99) 291mg/dL (70-99) 328mg/dL (70-99) Test 11/29/16 10:40 11/29/16 16:10 11/29/16 20:36 11/30/16 03:55 Glucose (Fingerstick) 400mg/dL (70-99) 395mg/dL (70-99) 275mg/dL (70-99) White Blood Count 6.5x10^3/uL (4.0-11.0) Red Blood Count 3.66x10^6/uL (4.30-5.70) Hemoglobin 10.6g/dL (13.0-17.5) Hematocrit 32.1% (39.0-53.0) Mean Corpuscular Volume 88fL (79-100) Mean Corpuscular Hemoglobin 29pg (25-35) Mean Corpuscular Hemoglobin Concent 33g/dL (31-37) Red Cell Distribution Width 15.5% (11.5-14.5) Platelet Count 239x10^3/uL (140-400) Neutrophils (%) (Auto) 71% (31-73) Lymphocytes (%) (Auto) 13% (24-48) Monocytes (%) (Auto) 13% (0-9) Eosinophils (%) (Auto) 3% (0-3) Basophils (%) (Auto) 1% (0-3) Neutrophils # (Auto) 4.6x10^3uL (1.8-7.7) Lymphocytes # (Auto) 0.9x10^3/uL (1.0-4.8) Monocytes # (Auto) 0.8x10^3/uL (0.0-1.1) Eosinophils # (Auto) 0.2x10^3/uL (0.0-0.7) Basophils # (Auto) 0.0x10^3/uL (0.0-0.2) Sodium Level 139mmol/L (136-145) Potassium Level 4.0mmol/L (3.5-5.1) Chloride Level 102mmol/L (98-107) Carbon Dioxide Level 24mmol/L (21-32) Anion Gap 13 (6-14) Blood Urea Nitrogen 20mg/dL (8-26) Creatinine 1.3mg/dL (0.7-1.3) Estimated GFR (Cockcroft-Gault) 56.9 Glucose Level 362mg/dL (70-99) Calcium Level 8.3mg/dL (8.5-10.1) Phosphorus Level 2.8mg/dL (2.6-4.7) Magnesium Level 1.9mg/dL (1.8-2.4) Albumin 2.0g/dL (3.4-5.0) Test 11/30/16 07:00 11/30/16 08:13 11/30/16 10:59 11/30/16 13:08 Glucose (Fingerstick) 332mg/dL (70-99) 265mg/dL (70-99) 250mg/dL (70-99) Prothrombin Time 14.1SEC (11.7-14.0) Prothromb Time International Ratio 1.2 (0.8-1.1) Test 11/30/16 14:56 Glucose (Fingerstick) 261mg/dL (70-99) Laboratory Tests Test 11/29/16 16:10 11/29/16 20:36 11/30/16 03:55 11/30/16 07:00 Glucose (Fingerstick) 395mg/dL (70-99) 275mg/dL (70-99) 332mg/dL (70-99) White Blood Count 6.5x10^3/uL (4.0-11.0) Red Blood Count 3.66x10^6/uL (4.30-5.70) Hemoglobin 10.6g/dL (13.0-17.5) Hematocrit 32.1% (39.0-53.0) Mean Corpuscular Volume 88fL (79-100) Mean Corpuscular Hemoglobin 29pg (25-35) Mean Corpuscular Hemoglobin Concent 33g/dL (31-37) Red Cell Distribution Width 15.5% (11.5-14.5) Platelet Count 239x10^3/uL (140-400) Neutrophils (%) (Auto) 71% (31-73) Lymphocytes (%) (Auto) 13% (24-48) Monocytes (%) (Auto) 13% (0-9) Eosinophils (%) (Auto) 3% (0-3) Basophils (%) (Auto) 1% (0-3) Neutrophils # (Auto) 4.6x10^3uL (1.8-7.7) Lymphocytes # (Auto) 0.9x10^3/uL (1.0-4.8) Monocytes # (Auto) 0.8x10^3/uL (0.0-1.1) Eosinophils # (Auto) 0.2x10^3/uL (0.0-0.7) Basophils # (Auto) 0.0x10^3/uL (0.0-0.2) Sodium Level 139mmol/L (136-145) Potassium Level 4.0mmol/L (3.5-5.1) Chloride Level 102mmol/L (98-107) Carbon Dioxide Level 24mmol/L (21-32) Anion Gap 13 (6-14) Blood Urea Nitrogen 20mg/dL (8-26) Creatinine 1.3mg/dL (0.7-1.3) Estimated GFR (Cockcroft-Gault) 56.9 Glucose Level 362mg/dL (70-99) Calcium Level 8.3mg/dL (8.5-10.1) Phosphorus Level 2.8mg/dL (2.6-4.7) Magnesium Level 1.9mg/dL (1.8-2.4) Albumin 2.0g/dL (3.4-5.0) Test 11/30/16 08:13 11/30/16 10:59 11/30/16 13:08 11/30/16 14:56 Prothrombin Time 14.1SEC (11.7-14.0) Prothromb Time International Ratio 1.2 (0.8-1.1) Glucose (Fingerstick) 265mg/dL (70-99) 250mg/dL (70-99) 261mg/dL (70-99) Images Images Xrays of the right knee reveal significant anterior soft tissue swelling. no acute fracture or dislocations. Chronic changes to the inferior pole of the patella. possible joint effusion. Assessment/Plan Assessment/Plan The patient is a 56 year old immunosuppressed man with a right knee ( prepatellar vs intra-articular) suppuritic infection. -Plan for I&D. -We will go to surgery later today for cultures, I&D, possible wound vac vs packing. MADISON REDMAN MD Nov 30, 2016 15:47
[2016-11-30] MEDS: IV NORMAL SALINE 1000ML BAG 1,000 ML IV SCH (17:30)
[2016-11-30] MEDS: NIACIN ER 500 MG TABLET.ER PO SCH (20:26)
[2016-11-30] MEDS: ACETAMINOPHEN 325 MG TABLET. PO PRN (20:27)
[2016-11-30] MEDS: INSULIN DETEMIR 300 UNITS/3 ML INSULN.PEN. SQ SCH (20:41)
[2016-12-01] VITALS (10 sets, daily range): BP systolic 119–176; BP diastolic 44–75
[2016-12-01] MEDS: FENTANYL PF 100 MCG/2 ML VIAL. IV PRN ×3 (03:58→22:06)
[2016-12-01 04:34] LABS: BASO % 1 % (0-3); EOS % 4 % (0-3); HEMATOCRIT 28.8 % (39.0-53.0); HEMOGLOBIN 9.5 g/dL (13.0-17.5); LYMPH # 0.9 x10^3/uL (1.0-4.8); LYMPH % 14 % (24-48); MEAN CORPUSCULAR HEMOGLOBIN 29 pg (25-35); MEAN CORPUSCULAR HGB CONC 33 g/dL (31-37); MEAN CORPUSCULAR VOLUME 88 fL (79-100); MONO % 14 % (0-9); NEUT % 68 % (31-73); PLATELET COUNT 283 x10^3/uL (140-400); RED BLOOD COUNT 3.29 x10^6/uL (4.30-5.70); RED CELL DISTRIBUTION WIDTH 15.2 % (11.5-14.5); WHITE BLOOD COUNT 6.4 x10^3/uL (4.0-11.0)
[2016-12-01] MEDS ORDERED: HEPARIN PF 500 UNIT/5 ML DISP.SYRIN. IV ONE ×2 (07:56→08:45)
[2016-12-01] MEDS ORDERED: LIDOCAINE 1%/EPI 1:100,000 20 ML VIAL. ONE (07:56)
[2016-12-01] MEDS ORDERED: LIDOCAINE 1% / SOD BICARB 8.4% 20 ML VIAL. IJ ONE (08:17)
[2016-12-01] MEDS ORDERED: MIDAZOLAM HCL 2 MG/2 ML VIAL. ONE (08:29)
--- NOTE | 2016-12-01 08:39 | PDOC ---
Infectious Disease Note Subjective Subjective No acute distress. Scheduled for [place] placement this morning. ROS ROS GEN: Denies fevers, chills, sweats HEENT: Denies blurred vision, sore throat CV: Denies chest pain RESP: Denies shortness of air, cough GI: Denies n/v/d NEURO: Denies confusion, dizziness MSK: Denies weakness, joint pain/swelling Vital Sign Vital Signs Vital Signs Date Time Temp Pulse Resp B/P Pulse Ox O2 Delivery O2 Flow Rate FiO2 12/01/16 07:00 98.1 70 18 138/61 97 Room Air 98.1 11/30/16 16:04 2 Physical Exam PHYSICAL EXAM GENERAL: NAD, Alert HEENT: PERRL, OC/OP NECK: Supple, no JVD, no LN LUNGS: Clear HEART: S1S2, no gallop, no murmur ABD: Soft, NT, no organomegaly, no rebound EXT: No edema, no cyanosis SHELL FISHERMAN: Alert, oriented x 3, no focal neurologic deficit SKIN: No rash IV: ok Labs Lab Laboratory Tests Test 11/30/16 10:59 11/30/16 13:08 11/30/16 14:56 11/30/16 16:27 Glucose (Fingerstick) 265mg/dL (70-99) 250mg/dL (70-99) 261mg/dL (70-99) 263mg/dL (70-99) Test 11/30/16 20:30 12/01/16 03:11 Glucose (Fingerstick) 155mg/dL (70-99) White Blood Count 6.4x10^3/uL (4.0-11.0) Red Blood Count 3.29x10^6/uL (4.30-5.70) Hemoglobin 9.5g/dL (13.0-17.5) Hematocrit 28.8% (39.0-53.0) Mean Corpuscular Volume 88fL (79-100) Mean Corpuscular Hemoglobin 29pg (25-35) Mean Corpuscular Hemoglobin Concent 33g/dL (31-37) Red Cell Distribution Width 15.2% (11.5-14.5) Platelet Count 283x10^3/uL (140-400) Neutrophils (%) (Auto) 68% (31-73) Lymphocytes (%) (Auto) 14% (24-48) Monocytes (%) (Auto) 14% (0-9) Eosinophils (%) (Auto) 4% (0-3) Basophils (%) (Auto) 1% (0-3) Neutrophils # (Auto) 4.3x10^3uL (1.8-7.7) Lymphocytes # (Auto) 0.9x10^3/uL (1.0-4.8) Monocytes # (Auto) 0.9x10^3/uL (0.0-1.1) Eosinophils # (Auto) 0.2x10^3/uL (0.0-0.7) Basophils # (Auto) 0.0x10^3/uL (0.0-0.2) Magnesium Level 1.6mg/dL (1.8-2.4) Objective Assessment Right septic knee s/p I and D x2 Group B strep so far - wound VAC placed on 11/30 Immunosuppression CKD DM elevated FSBS Plan Plan of Care Cont Ceftaroline and f/u intraop cults and adjust F/u labs and cults/sensitivities Awaiting [facility] 12/01 Leg elevation Labs in clinical services consultant Appreciate Dr. Mota input D/w KITTY KUMAR MD Dec 01, 2016 08:39
[2016-12-01] MEDS ORDERED: LIDOCAINE 1%/EPI 1:100,000 20 ML VIAL. IJ ONE (08:45)
[2016-12-01] MEDS: CEFTAROLINE FOSAMIL 600 MG in IV NORMAL SALINE 250ML 250 ML IV SCH (08:50)
--- NOTE | 2016-12-01 09:14 | PDOC ---
MODERATE SEDATION ASSESSMENT RISKS/ALTERNATIVES Risks/Alternatives Risks and alternatives of this type of sedation and procedure discussed with: RISK/ALTERNATIVES: Patient H & P ON CHART H & P H & P on chart and reviewed for co-morbid conditions and appropriate labs. H&P ON CHART: Yes STATUS PREG STATUS ASSESSED: N/A MEDS/ALLERGIES REVIEWED Meds/Allergies Reviewed Medications and Allergies including time and route of recently administered narcotics and sedatives. MEDS/ALLERGIES REVIEWED: Yes ASA RATING ASA RATING: II AIRWAY ASSESSMENT Airway Assessment Airway patency, oral function limitations, presence of caps, crowns, dentures, partials, and ability to extend neck assessed. AIRWAY ASSESSMENT: Yes MALLAMPATI SCORE MALLAMPATI SCORE: III PRE-SEDATION ASSESSMENT PRE-SEDATION ASSESSMENT: Yes XIANG RAE MD Dec 01, 2016 09:14
--- NOTE | 2016-12-01 09:14 | PDOC ---
PROGRESS NOTES Subjective Subjective Pt awake and pleasant in conversation. States he has a good appetite and has normal output. Objective Objective Pt awake and alert. NAD. VSS. Afebrile. Lungs CTA bilat. Resp even and unlabored. Heart with RRR. No murmurs. Right knee with dressing CDI. Vital Signs Date Time Temp Pulse Resp B/P Pulse Ox O2 Delivery O2 Flow Rate FiO2 12/01/16 07:00 98.1 70 18 138/61 97 Room Air 98.1 11/30/16 16:04 2 Intake and Output 12/01/16 07:00 Intake Total 660 ml Output Total 2 ml Balance 658 ml Intake Oral 360 ml IV Total 300 ml Output Urine Total 2 ml Assessment Assessment Problems Medical Problems: (1) Cellulitis and abscess of leg, except foot Status: Acute (2) Immunosuppression Status: Acute Plan Plan of Care 1. Right septic knee -s/p I and D x2 (11/29 and 11/30) -removal of majority of patellar tendon with debridement -Culture with GPS, sensitivity pending -ID consulting -Ceftaroline initiated on 11/29 - pt will need ongoing IV abx for a probable duration of 6 weeks -[facility] placement scheduled for this am 2. 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 3. Acute on chronic renal failure -Renal consulted -Creat 1.5 4. DM, insulin dependent -Pt on Levemir and Novolog. -FSBS qid SW consulted to begin Dc plans for probable early next week. Pt prefers [facility] for SNF placement. Comment Review of Relevant I have reviewed the following items shawn (where applicable) has been applied. Labs Laboratory Tests Test 11/29/16 10:40 11/29/16 16:10 11/29/16 20:36 11/30/16 03:55 Glucose (Fingerstick) 400mg/dL (70-99) 395mg/dL (70-99) 275mg/dL (70-99) White Blood Count 6.5x10^3/uL (4.0-11.0) Red Blood Count 3.66x10^6/uL (4.30-5.70) Hemoglobin 10.6g/dL (13.0-17.5) Hematocrit 32.1% (39.0-53.0) Mean Corpuscular Volume 88fL (79-100) Mean Corpuscular Hemoglobin 29pg (25-35) Mean Corpuscular Hemoglobin Concent 33g/dL (31-37) Red Cell Distribution Width 15.5% (11.5-14.5) Platelet Count 239x10^3/uL (140-400) Neutrophils (%) (Auto) 71% (31-73) Lymphocytes (%) (Auto) 13% (24-48) Monocytes (%) (Auto) 13% (0-9) Eosinophils (%) (Auto) 3% (0-3) Basophils (%) (Auto) 1% (0-3) Neutrophils # (Auto) 4.6x10^3uL (1.8-7.7) Lymphocytes # (Auto) 0.9x10^3/uL (1.0-4.8) Monocytes # (Auto) 0.8x10^3/uL (0.0-1.1) Eosinophils # (Auto) 0.2x10^3/uL (0.0-0.7) Basophils # (Auto) 0.0x10^3/uL (0.0-0.2) Sodium Level 139mmol/L (136-145) Potassium Level 4.0mmol/L (3.5-5.1) Chloride Level 102mmol/L (98-107) Carbon Dioxide Level 24mmol/L (21-32) Anion Gap 13 (6-14) Blood Urea Nitrogen 20mg/dL (8-26) Creatinine 1.3mg/dL (0.7-1.3) Estimated GFR (Cockcroft-Gault) 56.9 Glucose Level 362mg/dL (70-99) Calcium Level 8.3mg/dL (8.5-10.1) Phosphorus Level 2.8mg/dL (2.6-4.7) Magnesium Level 1.9mg/dL (1.8-2.4) Albumin 2.0g/dL (3.4-5.0) Test 11/30/16 07:00 11/30/16 08:13 11/30/16 10:59 11/30/16 13:08 Glucose (Fingerstick) 332mg/dL (70-99) 265mg/dL (70-99) 250mg/dL (70-99) Prothrombin Time 14.1SEC (11.7-14.0) Prothromb Time International Ratio 1.2 (0.8-1.1) Test 11/30/16 14:56 11/30/16 16:27 11/30/16 20:30 12/01/16 03:11 Glucose (Fingerstick) 261mg/dL (70-99) 263mg/dL (70-99) 155mg/dL (70-99) White Blood Count 6.4x10^3/uL (4.0-11.0) Red Blood Count 3.29x10^6/uL (4.30-5.70) Hemoglobin 9.5g/dL (13.0-17.5) Hematocrit 28.8% (39.0-53.0) Mean Corpuscular Volume 88fL (79-100) Mean Corpuscular Hemoglobin 29pg (25-35) Mean Corpuscular Hemoglobin Concent 33g/dL (31-37) Red Cell Distribution Width 15.2% (11.5-14.5) Platelet Count 283x10^3/uL (140-400) Neutrophils (%) (Auto) 68% (31-73) Lymphocytes (%) (Auto) 14% (24-48) Monocytes (%) (Auto) 14% (0-9) Eosinophils (%) (Auto) 4% (0-3) Basophils (%) (Auto) 1% (0-3) Neutrophils # (Auto) 4.3x10^3uL (1.8-7.7) Lymphocytes # (Auto) 0.9x10^3/uL (1.0-4.8) Monocytes # (Auto) 0.9x10^3/uL (0.0-1.1) Eosinophils # (Auto) 0.2x10^3/uL (0.0-0.7) Basophils # (Auto) 0.0x10^3/uL (0.0-0.2) Magnesium Level 1.6mg/dL (1.8-2.4) Laboratory Tests Test 11/30/16 10:59 11/30/16 13:08 11/30/16 14:56 11/30/16 16:27 Glucose (Fingerstick) 265mg/dL (70-99) 250mg/dL (70-99) 261mg/dL (70-99) 263mg/dL (70-99) Test 11/30/16 20:30 12/01/16 03:11 Glucose (Fingerstick) 155mg/dL (70-99) White Blood Count 6.4x10^3/uL (4.0-11.0) Red Blood Count 3.29x10^6/uL (4.30-5.70) Hemoglobin 9.5g/dL (13.0-17.5) Hematocrit 28.8% (39.0-53.0) Mean Corpuscular Volume 88fL (79-100) Mean Corpuscular Hemoglobin 29pg (25-35) Mean Corpuscular Hemoglobin Concent 33g/dL (31-37) Red Cell Distribution Width 15.2% (11.5-14.5) Platelet Count 283x10^3/uL (140-400) Neutrophils (%) (Auto) 68% (31-73) Lymphocytes (%) (Auto) 14% (24-48) Monocytes (%) (Auto) 14% (0-9) Eosinophils (%) (Auto) 4% (0-3) Basophils (%) (Auto) 1% (0-3) Neutrophils # (Auto) 4.3x10^3uL (1.8-7.7) Lymphocytes # (Auto) 0.9x10^3/uL (1.0-4.8) Monocytes # (Auto) 0.9x10^3/uL (0.0-1.1) Eosinophils # (Auto) 0.2x10^3/uL (0.0-0.7) Basophils # (Auto) 0.0x10^3/uL (0.0-0.2) Magnesium Level 1.6mg/dL (1.8-2.4) Microbiology 11/28/16 Gram Stain - Final, Complete Medications Current Medications Fentanyl Citrate 50 mcg 50 mcg PRN Q15MIN PRN IV PAIN GREATER THAN 3/10 Last administered on 11/29/16t 06:24; Start 11/28/16 at 12:15; Stop 11/29/16 at 12:14 ; Status DC Sodium Chloride (Iv Sodium Chloride 0.9% 1000ml Bag) 1,000 ml @ 1,000 mls/hr Q1H IV Last administered on 11/28/16 12:39; Start 11/28/16 at 12:15; Stop at 13:14; Status DC Ondansetron HCl (Zofran) 4 mg PRN Q8HRS PRN IV NAUSEA/VOMITING; Start 11/28/16 at 14:00; Stop 11/29/16 at 13:59; Status DC Fentanyl Citrate (Fentanyl 2ml Vial) 50 mcg PRN Q2HR PRN IV PAIN Last administered on 11/29/16 09:38; Start 11/28/16 at 14:00; Stop 11/29/16 at 13:59 ; Status DC Acetaminophen (Tylenol) 650 mg PRN Q4HRS PRN PO FEVER; Start 11/28/16 at 14:00 ; Stop 11/29/16 at 13:59; Status DC Vancomycin HCl (Vanco Per Pharmacy) 1 each PRN DAILY PRN MC SEE COMMENTS Last administered on 11/28/16 17:54; Start 11/28/16 at 14:00; Stop 11/29/16 at 09:32 ; Status DC Piperacillin Sod/ Tazobactam Sod 1 each 1 each PRN DAILY PRN MC SEE COMMENTS; Start 11/28/16 at 14:00; Status Cancel Vancomycin HCl 2 gm/Sodium Chloride 500 ml @ 250 mls/hr 1X ONCE IV Last administered on 11/28/16 18:00; Start 11/28/16 at 14:00; Stop 11/28/16 at 15:59 ; Status DC Piperacillin Sod/ Tazobactam Sod 3.375 gm/Sodium Chloride 50 ml @ 100 mls/hr 1X ONCE IV Last administered on 11/28/16 14:18; Start 11/28/16 at 15:00; Stop 11/28/16 at 15:29; Status DC Piperacillin Sod/ Tazobactam Sod/ Sodium Chloride (Zosyn/Iv Sodium Chloride 0.9 % 50ml) 50 ml @ 100 mls/hr Q6HRS IV Last administered on 11/29/16 06:24; Start 11/28/16 at 19:00; Stop 11/29/16 at 09:36; Status DC Dextrose 12.5 gm PRN Q15MIN PRN IV SEE COMMENTS; Start 11/28/16 at 17:00 Ondansetron HCl (Zofran) 4 mg PRN Q6HRS PRN IV Nausea; Start 11/28/16 at 17:30 ; Stop 11/29/16 at 17:29; Status DC Fentanyl Citrate (Fentanyl 2ml Vial) 25 mcg PRN Q5MIN PRN IV MILD PAIN; Start 11/28/16 at 17:30; Stop 11/29/16 at 17:29; Status DC Fentanyl Citrate (Fentanyl 2ml Vial) 50 mcg PRN Q5MIN PRN IV MODERATE PAIN Last administered on 11/29/16 14:54; Start 11/28/16 at 17:30; Stop 11/29/16 at 17:29; Status DC Morphine Sulfate 1 mg 1 mg PRN Q10MIN PRN IV SEVERE PAIN; Start 11/28/16 at 17: 30; Stop 11/29/16 at 17:29; Status DC Lactated Ringer's (Iv Lactated Ringers) 1,000 ml @ 30 mls/hr Q24H IV ; Start at 17:24; Stop 11/29/16 at 05:23; Status DC Lidocaine HCl 2 ml 1X PRN PRN ID IV START; Start 11/28/16 at 17:30; Stop at 17:29; Status DC Hydromorphone HCl (Dilaudid) 0.5 mg PRN Q10MIN PRN IV SEV PAIN,Second choice; Start 11/28/16 at 17:30; Stop 11/29/16 at 17:29; Status DC Prochlorperazine Edisylate 5 mg 5 mg PACU PRN PRN IV NAUSEA Last administered on 11/28/16 20:28; Start 11/28/16 at 17:30; Stop 11/29/16 at 17:29; Status DC Vancomycin HCl/ Sodium Chloride (Iv Sodium Chloride 0.9% 500ml Bag) 500 ml @ 250 mls/hr Q12H IV Last administered on 11/29/16 02:34; Start 11/29/16 at 02: 00; Stop 11/29/16 at 09:32; Status DC Vancomycin HCl 1 each 1 each 1X ONCE MC ; Start 11/30/16 at 01:30; Stop at 01:31; Status Cancel Sodium Chloride 1,000 ml @ 30 mls/hr Q24H IV Last administered on 11/30/16 17 :30; Start 11/28/16 at 18:00 Propofol (Diprivan) 20 ml @ As Directed STK-MED ONCE IV ; Start 11/28/16 at 18: 10; Stop 11/28/16 at 18:11; Status DC Phenylephrine HCl 1 mg STK-MED ONCE IV ; Start 11/28/16 at 18:10; Stop 11/28/16 at 18:11; Status DC Fentanyl Citrate (Fentanyl 2ml Vial) 100 mcg STK-MED ONCE .ROUTE ; Start at 18:10; Stop 11/28/16 at 18:11; Status DC Famotidine (Pepcid) 20 mg STK-MED ONCE .ROUTE ; Start 11/28/16 at 18:10; Stop at 18:11; Status DC Ondansetron HCl 4 mg 4 mg STK-MED ONCE .ROUTE ; Start 11/28/16 at 18:10; Stop at 18:11; Status DC Propofol (Diprivan) 20 ml @ As Directed STK-MED ONCE IV ; Start 11/28/16 at 18: 33; Stop 11/28/16 at 18:34; Status DC Sevoflurane (Ultane) 60 ml STK-MED ONCE IH ; Start 11/28/16 at 18:57; Stop 11/28 at 18:58; Status DC Sevoflurane 30 ml 30 ml STK-MED ONCE IH ; Start 11/28/16 at 18:57; Stop at 18:58; Status DC Tranexamic Acid/ Sodium Chloride (Cyklokapron/Iv Sodium Chloride 0.9% 50ml) 60 ml @ 60 mls/hr 1X PERIOP ONCE INJ Last administered on 11/28/16 19:30; Start 11/28/16 at 19:30; Stop 11/28/16 at 20:29; Status DC Vancomycin HCl (Vanco) 10 gm STK-MED ONCE .ROUTE Last administered on 19:30; Start 11/28/16 at 19:21; Stop 11/28/16 at 19:22; Status DC Tobramycin Sulfate 1.2 gm STK-MED ONCE .ROUTE Last administered on 11/28/16 19 :30; Start 11/28/16 at 19:21; Stop 11/28/16 at 19:22; Status DC Tobramycin Sulfate 1.2 gm STK-MED ONCE .ROUTE Last administered on 11/28/16 19 :30; Start 11/28/16 at 19:46; Stop 11/28/16 at 19:47; Status DC Tobramycin Sulfate 1.2 gm STK-MED ONCE .ROUTE Last administered on 11/28/16 19 :30; Start 11/28/16 at 19:46; Stop 11/28/16 at 19:47; Status DC Tobramycin Sulfate 1.2 gm STK-MED ONCE .ROUTE Last administered on 11/28/16 19 :30; Start 11/28/16 at 19:46; Stop 11/28/16 at 19:47; Status DC Tobramycin Sulfate 1.2 gm STK-MED ONCE .ROUTE Last administered on 11/28/16 19 :30; Start 11/28/16 at 19:46; Stop 11/28/16 at 19:47; Status DC Tobramycin Sulfate 1.2 gm STK-MED ONCE .ROUTE Last administered on 11/28/16 19 :30; Start 11/28/16 at 19:46; Stop 11/28/16 at 19:47; Status DC Sevoflurane (Ultane) 60 ml STK-MED ONCE IH ; Start 11/28/16 at 19:50; Stop 11/28 at 19:51; Status DC Dextrose 12.5 gm PRN Q15MIN PRN IV SEE COMMENTS; Start 11/28/16 at 21:00; Stop 11/29/16 at 17:00; Status DC Insulin Human Regular (Novolin R Vial) 20 unit 1X ONCE IV Last administered on 11/28/16 21:27; Start 11/28/16 at 21:00; Stop 11/28/16 at 21:01; Status DC Insulin Aspart (Novolog Vial) 100 unit STK-MED ONCE SQ ; Start 11/28/16 at 20:57 ; Stop 11/28/16 at 20:58; Status DC Piperacillin Sod/ Tazobactam Sod 1 each 1 each PRN DAILY PRN MC SEE COMMENTS; Start 11/28/16 at 21:30; Status UNV Piperacillin Sod/ Tazobactam Sod/ Sodium Chloride (Zosyn/Iv Sodium Chloride 0.9 % 50ml) 50 ml @ 100 mls/hr Q6HRS IV ; Start 11/29/16 at 00:00; Status UNV Aspirin (Ecotrin) 81 mg DAILY PO Last administered on 11/29/16 09:36; Start at 09:00 Fludrocortisone Acetate (Florinef) 0.1 mg DAILY PO Last administered on 09:37; Start 11/29/16 at 09:00 Mycophenolate Sodium (Myfortic) 360 mg BID PO ; Start 11/29/16 at 09:00; Stop at 09:00; Status DC Tacrolimus (Prograf) 1 mg BID PO Last administered on 11/30/16 20:26; Start at 09:00 Vitamin D (Vitamin D3) 1,000 unit DAILY PO Last administered on 11/29/16 09:36 ; Start 11/29/16 at 09:00 Duloxetine HCl (Cymbalta) 60 mg DAILY PO Last administered on 11/30/16 09:28; Start 11/29/16 at 09:00 Insulin Aspart (Novolog) 12 units DAILYBFRSUP SQ Last administered on 17:29; Start 11/29/16 at 17:00 Insulin Aspart (Novolog) 14 units DAILYWLUN SQ Last administered on 11/29/16 12:21; Start 11/29/16 at 12:00 Non-Formulary Medication 20 unit DAILYWSUP SQ ; Start 11/29/16 at 17:00; Status UNV Insulin Detemir (Levemir) 24 units QHS SQ Last administered on 11/30/16 20:41 ; Start 11/29/16 at 21:00 Niacin (Slo-Niacin) 500 mg QHS PO Last administered on 11/30/16 20:26; Start 11/29/16 at 21:00 Mycophenolate Sodium (Myfortic) 360 mg BID PO Last administered on 11/30/16 20 :26; Start 11/29/16 at 09:00 Fish Oil (Fish Oil) 1,000 mg DAILY PO Last administered on 11/29/16 09:37; Start 11/29/16 at 09:30 Insulin Aspart 12 units 12 units TIDAC SQ Last administered on 11/30/16 09:38 ; Start 11/29/16 at 11:30 Linezolid 300 ml @ 300 mls/hr Q12HR IV ; Start 11/29/16 at 10:00; Stop at 10:00; Status DC Ceftaroline Fosamil 600 mg/ Sodium Chloride 250 ml @ 250 mls/hr Q12HR IV Last administered on 12/01/16 08:50; Start 11/29/16 at 10:00 Magnesium Sulfate/ Dextrose (Magnesium Sulfate PREMIX 2GM) 50 ml @ 25 mls/hr PRN DAILY PRN IV for Mag < 1.7 on am labs; Start 11/29/16 at 15:00 Ondansetron HCl (Zofran) 4 mg PRN Q6HRS PRN IV Nausea; Start 11/30/16 at 07:00 ; Stop 11/30/16 at 18:00; Status DC Fentanyl Citrate (Fentanyl 2ml Vial) 25 mcg PRN Q5MIN PRN IV MILD PAIN; Start 11/30/16 at 07:00; Stop 11/30/16 at 18:00; Status DC Fentanyl Citrate (Fentanyl 2ml Vial) 50 mcg PRN Q5MIN PRN IV MODERATE PAIN Last administered on 11/29/16 19:35; Start 11/30/16 at 07:00; Stop 11/30/16 at 18:00; Status DC Morphine Sulfate 1 mg 1 mg PRN Q10MIN PRN IV SEVERE PAIN Last administered on 15:37; Start 11/30/16 at 07:00; Stop 11/30/16 at 18:00; Status DC Lactated Ringer's (Iv Lactated Ringers) 1,000 ml @ 30 mls/hr Q24H IV ; Start at 07:00; Stop 11/30/16 at 18:59; Status DC Lidocaine HCl 2 ml 1X PRN PRN ID IV START; Start 11/30/16 at 07:00; Stop at 18:00; Status DC Hydromorphone HCl (Dilaudid) 0.5 mg PRN Q10MIN PRN IV SEVERE PAIN, Second choice; Start 11/30/16 at 07:00; Stop 11/30/16 at 18:00; Status DC Prochlorperazine Edisylate (Compazine) 5 mg PACU PRN PRN IV NAUSEA; Start 11/30 at 07:00; Stop 11/30/16 at 18:00; Status DC Acetaminophen (Tylenol) 325 mg PRN Q6HRS PRN PO MILD PAIN / TEMP Last administered on 11/30/16 20:27; Start 11/29/16 at 17:00 Insulin Aspart (Novolog) 5 units PRN BFRMEAL SQ ; Start 11/29/16 at 17:00 Fentanyl Citrate (Fentanyl 2ml Vial) 50 mcg PRN Q2HR PRN IV PAIN Last administered on 12/01/16 03:58; Start 11/30/16 at 00:45 Ondansetron HCl 4 mg 4 mg STK-MED ONCE .ROUTE ; Start 11/30/16 at 10:44; Stop at 10:45; Status DC Propofol (Diprivan) 20 ml @ As Directed STK-MED ONCE IV ; Start 11/30/16 at 10: 44; Stop 11/30/16 at 10:45; Status DC Lidocaine HCl 100 mg STK-MED ONCE .ROUTE ; Start 11/30/16 at 10:44; Stop at 10:45; Status DC Midazolam HCl (Versed) 2 mg STK-MED ONCE .ROUTE ; Start 11/30/16 at 10:44; Stop 11/30/16 at 10:45; Status DC Fentanyl Citrate (Fentanyl 5ml Vial) 250 mcg STK-MED ONCE .ROUTE ; Start at 10:44; Stop 11/30/16 at 10:45; Status DC Lidocaine HCl 30 ml STK-MED ONCE .ROUTE ; Start 11/30/16 at 13:03; Stop at 13:04; Status DC Bupivacaine HCl (Sensorcaine Mpf 0.5%) 30 ml STK-MED ONCE .ROUTE ; Start at 13:03; Stop 11/30/16 at 13:04; Status DC Vancomycin HCl 1 gm STK-MED ONCE .ROUTE Last administered on 11/30/16 15:02; Start 11/30/16 at 13:57; Stop 11/30/16 at 13:58; Status DC Tobramycin Sulfate 1.2 gm STK-MED ONCE .ROUTE Last administered on 11/30/16t 15 :01; Start 11/30/16 at 13:57; Stop 11/30/16 at 13:58; Status DC Desflurane (Suprane) 60 ml STK-MED ONCE IH ; Start 11/30/16 at 14:33; Stop 11/30 at 14:34; Status DC Lidocaine HCl 30 ml STK-MED ONCE .ROUTE ; Start 11/30/16 at 15:15; Stop at 15:16; Status DC Insulin Aspart (Novolog Vial) 8 unit 1X ONCE SQ Last administered on t 15:36; Start 11/30/16 at 15:30; Stop 11/30/16 at 15:32; Status DC Heparin Sodium (Porcine) (Hep Lock Adult) 500 unit STK-MED ONCE IV ; Start 12/01 at 07:56; Stop 12/01/16 at 07:57; Status DC Lidocaine/ Epinephrine 20 ml 20 ml STK-MED ONCE .ROUTE ; Start 12/01/16 at 07:56 ; Stop 12/01/16 at 07:57; Status DC Heparin Sodium/ Sodium Chloride 500 ml @ As Directed STK-MED ONCE .ROUTE ; Start 12/01/16 at 07:56; Stop 12/01/16 at 07:57; Status DC Lidocaine/Sodium Bicarbonate (Buffered Lidocaine 1%) 20 ml STK-MED ONCE IJ ; Start 12/01/16 at 08:17; Stop 12/01/16 at 08:18; Status DC Midazolam HCl (Versed) 2 mg STK-MED ONCE .ROUTE ; Start 12/01/16 at 08:29; Stop 12/01/16 at 08:30; Status DC Heparin Sodium/ Sodium Chloride 1,000 unit 1X ONCE IART ; Start 12/01/16 at 08: 45; Stop 12/01/16 at 08:50; Status DC Heparin Sodium (Porcine) (Hep Lock Adult) 500 unit 1X ONCE IV ; Start 12/01/16 at 08:45; Stop 12/01/16 at 08:50; Status DC Lidocaine/ Epinephrine (Xylocaine 1%-Epi 1:100,000) 40 ml 1X ONCE IJ ; Start at 08:45; Stop 12/01/16 at 08:50; Status DC Active Scripts Active Reported Novolog (Insulin Aspart) 100 Unit/1 Ml Cartridge 14 Unit SQ DAILYWLUN Novolog (Insulin Aspart) 100 Unit/1 Ml Cartridge 12 Unit SQ DAILYBFRSUP Prograf (Tacrolimus) 1 Mg Capsule 1 Cap PO BID [place]-3 ([place]-3 Fatty Acids) 1,000 Mg Capsule 1,000 Mg PO Novolog (Insulin Aspart) 100 Unit/1 Ml Cartridge 20 Unit SQ DAILYWSUP Lantus (Insulin Glargine,Hum.rec.anlog) 100 Unit/1 Ml Vial 24 Unit SQ HS Niacin 500 Mg Tablet 500 Mg PO HS Aspir 81 (Aspirin) 81 Mg Tablet. 1 Tab PO DAILY Vitamin D-3 (Cholecalciferol (Vitamin D3)) 2,000 Unit Capsule 1,000 Unit PO DAILY Krill Oil 500 Mg Capsule 500 Mg PO Fludrocortisone Acetate 0.1 Mg Tablet 1 Tab PO DAILY Myfortic (Mycophenolate Sodium) 360 Mg Tablet. 360 Mg PO BID Cymbalta (Duloxetine Hcl) 60 Mg Capsule. 1 Cap PO DAILY Vitals/I & O Vital Sign - Last 24 Hours 11/30/16 11/30/16 11/30/16 11/30/16 09:27 11:00 12:37 14:46 Temp 97.9 98.1 97.2 97.9 98.1 97.2 Pulse 77 74 73 Resp 18 15 20 B/P 146/74 151/59 160/76 Pulse Ox 93 96 98 O2 Delivery Room Air Room Air Room Air Simple Mask O2 Flow Rate 10 11/30/16 11/30/16 11/30/16 11/30/16 14:46 15:02 15:13 15:17 Pulse 72 69 Resp 20 20 20 B/P 177/65 153/57 Pulse Ox 97 97 95 O2 Delivery Mask Simple Mask Room Air Room Air O2 Flow Rate 10 10 11/30/16 11/30/16 11/30/16 11/30/16 15:32 15:37 15:47 16:01 Temp 98.3 98.3 Pulse 72 75 Resp 20 20 20 B/P 157/61 179/66 Pulse Ox 93 97 100 O2 Delivery Room Air Room Air Nasal Cannula Nasal Cannula O2 Flow Rate 2 2 11/30/16 11/30/16 11/30/16 11/30/16 16:04 16:15 16:28 16:30 Temp 98.2 98.1 98.2 98.1 Pulse 75 90 78 Resp 20 16 16 B/P 195/91 153/96 163/70 Pulse Ox 100 96 96 O2 Delivery Nasal Cannula Room Air Room Air Room Air O2 Flow Rate 2 11/30/16 11/30/16 11/30/16 11/30/16 16:45 17:00 17:15 17:30 Pulse 75 72 72 73 B/P 152/62 120/60 124/59 124/61 Pulse Ox 95 93 93 92 O2 Delivery Room Air Room Air Room Air Room Air 11/30/16 11/30/16 11/30/16 11/30/16 18:00 18:20 19:00 20:00 Temp 98.1 98.1 Pulse 76 Resp 18 18 B/P 130/62 131/66 Pulse Ox 92 O2 Delivery Room Air Room Air Room Air Room Air 11/30/16 12/01/16 12/01/16 12/01/16 23:00 03:00 03:58 04:33 Temp 98.7 99.1 98.7 99.1 Pulse 79 75 Resp 20 14 16 16 B/P 125/61 176/75 Pulse Ox 93 96 96 96 O2 Delivery Room Air Room Air Room Air Room Air 12/01/16 07:00 Temp 98.1 98.1 Pulse 70 Resp 18 B/P 138/61 Pulse Ox 97 O2 Delivery Room Air Intake and Output 11/30/16 11/30/16 12/01/16 15:00 23:00 07:00 Intake Total 250 ml 290 ml 120 ml Output Total 0 ml 2 ml Balance 250 ml 290 ml 118 ml TIMA VILLEGAS MD Dec 01, 2016 09:14
[2016-12-01] MEDS ORDERED: MIDAZOLAM HCL 2 MG/2 ML VIAL. IV ONE (09:15)
[2016-12-01] MEDS ORDERED: FENTANYL PF 100 MCG/2 ML VIAL. IV ONE (09:15)
--- NOTE | 2016-12-01 09:17 | PDOC ---
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 No apparent complication. Disposition Disposition From IR return to [phone], if no problems. F/U with Dr Shaikh, Ortho, and ID. OK to use Power Line. Full report to follow. XIANG RAE MD Dec 01, 2016 09:17
[2016-12-01] MEDS: MYCOPHENOLATE ACID 180 MG TABLET.DR. PO SCH ×2 (10:02→20:59)
[2016-12-01] MEDS: FLUDROCORTISONE 0.1 MG TABLET PO SCH (10:02)
[2016-12-01] MEDS: TACROLIMUS 1 MG CAPSULE PO SCH ×2 (10:02→20:59)
[2016-12-01] MEDS: CHOLECALCIFEROL (VITAMIN D3) 1,000 UNIT TABLET PO SCH (10:02)
[2016-12-01] MEDS: OMEGA-3 FATTY ACIDS/FISH OIL 1,000 MG CAPSULE. PO SCH (10:02)
[2016-12-01] MEDS: ASPIRIN ENTERIC COATED 81 MG TABLET.DR. PO SCH (10:03)
[2016-12-01] MEDS: DULOXETINE HCL 30 MG CAPSULE.DR. PO SCH (10:03)
[2016-12-01] MEDS: INSULIN ASPART 300 UNITS/3 ML INSULN.PEN SQ SCH ×5 (10:09→17:12)
--- NOTE | 2016-12-01 10:26 | PDOC ---
Infectious Disease Note Subjective Subjective No acute distress. HAd Power PICC to right chest line placed this morning. ROS ROS GEN: Denies fevers, chills, sweats HEENT: Denies blurred vision, sore throat CV: Denies chest pain RESP: Denies shortness of air, cough GI: Denies n/v/d NEURO: Denies confusion, dizziness MSK: Denies weakness, joint pain/swelling Vital Sign Vital Signs Vital Signs Date Time Temp Pulse Resp B/P Pulse Ox O2 Delivery O2 Flow Rate FiO2 12/01/16 09:15 24 Room Air 12/01/16 07:00 98.1 70 138/61 97 98.1 11/30/16 16:04 2 Physical Exam PHYSICAL EXAM GENERAL: NAD, Alert HEENT: PERRL, OC/OP- clear NECK: Supple, no JVD, no LN LUNGS: Clear HEART: S1S2, no gallop, no murmur ABD: Soft, NT, no organomegaly, no rebound. EXT: No edema, no cyanosis. Vac in place to right knee. AV shunt - old [employer] OPER[employer]: Alert, oriented x 3, no focal neurologic deficit SKIN: No rash IV: Right chest clean Labs Lab Laboratory Tests Test 11/30/16 10:59 11/30/16 13:08 11/30/16 14:56 11/30/16 16:27 Glucose (Fingerstick) 265mg/dL (70-99) 250mg/dL (70-99) 261mg/dL (70-99) 263mg/dL (70-99) Test 11/30/16 20:30 12/01/16 03:11 Glucose (Fingerstick) 155mg/dL (70-99) White Blood Count 6.4x10^3/uL (4.0-11.0) Red Blood Count 3.29x10^6/uL (4.30-5.70) Hemoglobin 9.5g/dL (13.0-17.5) Hematocrit 28.8% (39.0-53.0) Mean Corpuscular Volume 88fL (79-100) Mean Corpuscular Hemoglobin 29pg (25-35) Mean Corpuscular Hemoglobin Concent 33g/dL (31-37) Red Cell Distribution Width 15.2% (11.5-14.5) Platelet Count 283x10^3/uL (140-400) Neutrophils (%) (Auto) 68% (31-73) Lymphocytes (%) (Auto) 14% (24-48) Monocytes (%) (Auto) 14% (0-9) Eosinophils (%) (Auto) 4% (0-3) Basophils (%) (Auto) 1% (0-3) Neutrophils # (Auto) 4.3x10^3uL (1.8-7.7) Lymphocytes # (Auto) 0.9x10^3/uL (1.0-4.8) Monocytes # (Auto) 0.9x10^3/uL (0.0-1.1) Eosinophils # (Auto) 0.2x10^3/uL (0.0-0.7) Basophils # (Auto) 0.0x10^3/uL (0.0-0.2) Magnesium Level 1.6mg/dL (1.8-2.4) Objective Assessment Right septic knee s/p I and D x2 Group B strep so far - wound VAC placed on 11/30 S/p Right chest line placed Immunosuppression CKD DM elevated FSBS Plan Plan of Care Discont Ceftaroline change to Unasyn F/u labs Awaiting further surgery 12/04 Leg elevation Labs am [employer] Will be available for questions over the weekend D/w KITTY KUMAR MD Dec 01, 2016 10:26
[2016-12-01 10:54] LABS: ALBUMIN 1.8 g/dL (3.4-5.0); CALCIUM 8.7 mg/dL (8.5-10.1); CREATININE 1.3 mg/dL (0.7-1.3); GFR 56.9; POTASSIUM 3.7 mmol/L (3.5-5.1)
[2016-12-01] MEDS: AMPICILLIN/SULBACTAM 3 GM in IV NORMAL SALINE 100ML 100 ML IV SCH ×2 (13:19→17:00)
--- NOTE | 2016-12-01 14:53 | PDOC ---
SUBJECTIVE ROS Renal Txp and CKD III-T doing ok no complaints CVS: no Orthopnea, no CP RESP: no SOB, no NORTON GI: no Nausea, no Vomiting : no Dysuria, no Urgency OBJECTIVE Vital Signs Vital Signs Date Time Temp Pulse Resp B/P Pulse Ox O2 Delivery O2 Flow Rate FiO2 12/01/16 11:05 98.3 71 18 126/46 95 Room Air 98.3 11/30/16 16:04 2 I & 0 Intake and Output 12/01/16 07:00 Intake Total 660 ml Output Total 2 ml Balance 658 ml Intake Oral 360 ml IV Total 300 ml Output Urine Total 2 ml PHYSICAL EXAM Physical Exam General Appearance: Awake Alert Oriented x 3 In no Distress Eyes: VIsion Unchanged Conjunctiva Normal EN: No EN Drainage Mucous Memb. moist Neck: no JVD min JVP Supple no Thyromegaly CVS: S1 S2 + Murmur No Gallop No Rub min Edema Resp: no Rales no Rhonchi no Acc. Muscle use GI: BS +ve NO Bruit Non Tender Non Distended : no CVA tenderness; no Suprapubic Tenderness RLQ Txp - NT with no bruit Assessment & Plan CKD III -T : This is probably his near term Basline for creat in the setting of infection. Has been 0.8-0.9 in the past. Current FLuid and E-lyte status does not necessitate emergent need for Dialysis. Will re-evaluate in am Renal Txp - stable renal function for now, ct present Immunosuppression; have not check FK levels due to send out tests and time lag in decision making.- May need to dec dose to help with Infection if problematic. Rt Knee Osteomyelitis - For surgery again next week. Needs IV Access for intermediate ABX - n ow with Groshong in chest HTN: Current BP meds reviewed. See orders for changes. Hypoalbuminemia - suspect due to infection Discussed Plan of Care and prognosis etc. at length with family ( mom) COMMENT/RELEVANT DATA Meds Current Medications Medications (Trade) Dose Ordered Sig/Beena Start Time Stop Time Status Last Admin Dose Admin Acetaminophen (Tylenol) 325 mg PRN Q6HRS PRN 11/29/16 17:00 11/30/16 20:27 325 MG Ampicillin Sodium/ Sulbactam Sodium/ Sodium Chloride (Unasyn/Iv Sodium Chloride 0.9% 100ml) 100 ml @ 200 mls/hr Q6HRS 12/01/16 12:00 12/01/16 13:19 200 MLS/HR Aspirin (Ecotrin) 81 mg DAILY 11/29/16 09:00 12/01/16 10:03 81 MG Bupivacaine HCl (Sensorcaine Mpf 0.5%) 30 ml STK-MED ONCE 11/30/16 13:03 11/30/16 13:04 DC Ceftaroline Fosamil 600 mg/ Sodium Chloride 250 ml @ 250 mls/hr Q12HR 11/29/16 10:00 12/01/16 10:21 DC 12/01/16 08:50 250 MLS/HR Desflurane (Suprane) 60 ml STK-MED ONCE 11/30/16 14:33 11/30/16 14:34 DC Dextrose 12.5 gm PRN Q15MIN PRN 11/28/16 21:00 11/29/16 17:00 DC Duloxetine HCl (Cymbalta) 60 mg DAILY 11/29/16 09:00 12/01/16 10:03 60 MG Famotidine (Pepcid) 20 mg STK-MED ONCE 11/28/16 18:10 11/28/16 18:11 DC Fentanyl Citrate (Fentanyl 2ml Vial) 50 mcg PRN Q5MIN PRN 12/04/16 07:00 12/05/16 06:59 Fentanyl Citrate (Fentanyl 5ml Vial) 250 mcg STK-MED ONCE 11/30/16 10:44 11/30/16 10:45 DC Fentanyl Citrate 50 mcg 50 mcg 1X ONCE 12/01/16 09:15 12/01/16 09:16 DC 12/01/16 09:15 50 MCG Fish Oil (Fish Oil) 1,000 mg DAILY 11/29/16 09:30 12/01/16 10:02 1,000 MG Fludrocortisone Acetate (Florinef) 0.1 mg DAILY 11/29/16 09:00 12/01/16 10:02 0.1 MG Heparin Sodium (Porcine) (Hep Lock Adult) 500 unit 1X ONCE 12/01/16 08:45 12/01/16 08:50 DC 12/01/16 08:45 500 UNIT Heparin Sodium/ Sodium Chloride 1,000 unit 1X ONCE 12/01/16 08:45 12/01/16 08:50 DC 12/01/16 08:45 1,000 UNIT Hydromorphone HCl (Dilaudid) 0.5 mg PRN Q10MIN PRN 12/04/16 07:00 12/05/16 06:59 Insulin Aspart (Novolog Vial) 8 unit 1X ONCE 11/30/16 15:30 11/30/16 15:32 DC 11/30/16 15:36 8 UNIT Insulin Aspart (Novolog) 5 units PRN BFRMEAL 11/29/16 17:00 Insulin Aspart 12 units 12 units TIDAC 11/29/16 11:30 12/01/16 10:09 12 UNITS Insulin Detemir (Levemir) 24 units QHS 11/29/16 21:00 11/30/16 20:41 24 UNITS Insulin Human Regular (Novolin R Vial) 20 unit 1X ONCE 11/28/16 21:00 11/28/16 21:01 DC 11/28/16 21:27 20 UNIT Lactated Ringer's (Iv Lactated Ringers) 1,000 ml @ 30 mls/hr Q24H 12/04/16 07:00 12/04/16 18:59 Lidocaine HCl 2 ml 1X PRN PRN 12/04/16 07:00 12/05/16 06:59 Lidocaine/ Epinephrine (Xylocaine 1%-Epi 1:100,000) 40 ml 1X ONCE 12/01/16 08:45 12/01/16 08:50 DC 12/01/16 08:45 5 ML Lidocaine/Sodium Bicarbonate (Buffered Lidocaine 1%) 20 ml STK-MED ONCE 12/01/16 08:17 12/01/16 08:18 DC Linezolid 300 ml @ 300 mls/hr Q12HR 11/29/16 10:00 11/29/16 10:00 DC Magnesium Sulfate/ Dextrose (Magnesium Sulfate PREMIX 2GM) 50 ml @ 25 mls/hr PRN DAILY PRN 11/29/16 15:00 Midazolam HCl (Versed) 1 mg 1X ONCE 12/01/16 09:15 12/01/16 09:16 DC 12/01/16 09:15 1 MG Morphine Sulfate 1 mg 1 mg PRN Q10MIN PRN 12/04/16 07:00 12/05/16 06:59 Mycophenolate Sodium (Myfortic) 360 mg BID 11/29/16 09:00 12/01/16 10:02 360 MG Niacin (Slo-Niacin) 500 mg QHS 11/29/16 21:00 11/30/16 20:26 500 MG Non-Formulary Medication 20 unit DAILYWSUP 11/29/16 17:00 UNV Ondansetron HCl (Zofran) 4 mg PRN Q6HRS PRN 12/04/16 07:00 12/05/16 06:59 Ondansetron HCl 4 mg 4 mg STK-MED ONCE 11/30/16 10:44 11/30/16 10:45 DC Phenylephrine HCl 1 mg STK-MED ONCE 11/28/16 18:10 11/28/16 18:11 DC Piperacillin Sod/ Tazobactam Sod (Zosyn Per Pharmacy) 1 each PRN DAILY PRN 11/28/16 14:00 Cancel Piperacillin Sod/ Tazobactam Sod 1 each 1 each PRN DAILY PRN 11/28/16 21:30 UNV Piperacillin Sod/ Tazobactam Sod/ Sodium Chloride (Zosyn/Iv Sodium Chloride 0.9% 50ml) 50 ml @ 100 mls/hr Q6HRS 11/29/16 00:00 UNV Prochlorperazine Edisylate (Compazine) 5 mg PACU PRN PRN 12/04/16 07:00 12/05/16 06:59 Prochlorperazine Edisylate 5 mg 5 mg PACU PRN PRN 11/28/16 17:30 11/29/16 17:29 DC 11/28/16 20:28 5 MG Propofol (Diprivan) 20 ml @ As Directed STK-MED ONCE 11/30/16 10:44 11/30/16 10:45 DC Sevoflurane (Ultane) 60 ml STK-MED ONCE 11/28/16 19:50 11/28/16 19:51 DC Sevoflurane 30 ml 30 ml STK-MED ONCE 11/28/16 18:57 11/28/16 18:58 DC Sodium Chloride (Iv Sodium Chloride 0.9% 1000ml Bag) 1,000 ml @ 30 mls/hr Q24H 11/28/16 18:00 11/30/16 17:30 30 MLS/HR Tacrolimus (Prograf) 1 mg BID 11/29/16 09:00 12/01/16 10:02 1 MG Tobramycin Sulfate 1.2 gm STK-MED ONCE 11/30/16 13:57 11/30/16 13:58 DC 11/30/16 15:01 1.2 GM Tranexamic Acid/ Sodium Chloride (Cyklokapron/Iv Sodium Chloride 0.9% 50ml) 60 ml @ 60 mls/hr 1X PERIOP ONCE 11/28/16 19:30 11/28/16 20:29 DC 11/28/16 19:30 60 MLS/HR Vancomycin HCl 1 gm STK-MED ONCE 11/30/16 13:57 11/30/16 13:58 DC 11/30/16 15:02 1 GM Vancomycin HCl (Vanco Per Pharmacy) 1 each PRN DAILY PRN 11/28/16 14:00 11/29/16 09:32 DC 11/28/16 17:54 1 EACH Vancomycin HCl (Vanco) 10 gm STK-MED ONCE 11/28/16 19:21 11/28/16 19:22 DC 11/28/16 19:30 10 GM Vancomycin HCl 1 each 1 each 1X ONCE 11/30/16 01:30 11/30/16 01:31 Cancel Vancomycin HCl/ Sodium Chloride (Iv Sodium Chloride 0.9% 500ml Bag) 500 ml @ 250 mls/hr Q12H 11/29/16 02:00 11/29/16 09:32 DC 11/29/16 02:34 250 MLS/HR Vitamin D (Vitamin D3) 1,000 unit DAILY 11/29/16 09:00 12/01/16 10:02 1,000 UNIT Lab Laboratory Tests Test 11/30/16 14:56 11/30/16 16:27 11/30/16 20:30 12/01/16 03:11 Glucose (Fingerstick) 261mg/dL (70-99) 263mg/dL (70-99) 155mg/dL (70-99) White Blood Count 6.4x10^3/uL (4.0-11.0) Red Blood Count 3.29x10^6/uL (4.30-5.70) Hemoglobin 9.5g/dL (13.0-17.5) Hematocrit 28.8% (39.0-53.0) Mean Corpuscular Volume 88fL (79-100) Mean Corpuscular Hemoglobin 29pg (25-35) Mean Corpuscular Hemoglobin Concent 33g/dL (31-37) Red Cell Distribution Width 15.2% (11.5-14.5) Platelet Count 283x10^3/uL (140-400) Neutrophils (%) (Auto) 68% (31-73) Lymphocytes (%) (Auto) 14% (24-48) Monocytes (%) (Auto) 14% (0-9) Eosinophils (%) (Auto) 4% (0-3) Basophils (%) (Auto) 1% (0-3) Neutrophils # (Auto) 4.3x10^3uL (1.8-7.7) Lymphocytes # (Auto) 0.9x10^3/uL (1.0-4.8) Monocytes # (Auto) 0.9x10^3/uL (0.0-1.1) Eosinophils # (Auto) 0.2x10^3/uL (0.0-0.7) Basophils # (Auto) 0.0x10^3/uL (0.0-0.2) Sodium Level 137mmol/L (136-145) Potassium Level 3.7mmol/L (3.5-5.1) Chloride Level 102mmol/L (98-107) Carbon Dioxide Level 27mmol/L (21-32) Anion Gap 8 (6-14) Blood Urea Nitrogen 16mg/dL (8-26) Creatinine 1.3mg/dL (0.7-1.3) Estimated GFR (Cockcroft-Gault) 56.9 Glucose Level 264mg/dL (70-99) Calcium Level 8.7mg/dL (8.5-10.1) Phosphorus Level 3.0mg/dL (2.6-4.7) Magnesium Level 1.6mg/dL (1.8-2.4) Albumin 1.8g/dL (3.4-5.0) Test 12/01/16 07:15 12/01/16 11:03 Glucose (Fingerstick) 252mg/dL (70-99) 293mg/dL (70-99) ZAIN BURNETT MD Dec 01, 2016 14:53
--- NOTE | 2016-12-01 15:16 | PATHOLOGY ---
PATHOLOGY REPORT * * * * * * * * FINAL DIAGNOSIS: A. Fibrous tissue, right anterior knee tissue: - Acute and chronic inflammation with focal scarring and hemosiderin laden macrophages. B. Synovial tissue, right knee intra-articular tissue: - Acute and chronic synovitis with few scattered hemosiderin laden macrophages. (JPM:; d/t: 12/01/16) REPORT ELECTRONICALLY SIGNED BY: Michelet Stevens M.D. DATE/TIME: 12/01/2016 15:16 * * * * * * * * GROSS PATHOLOGY: A. The specimen is received in formalin labeled "Latoya Isbell, right anterior knee tissue". Received is a segment of white-dukes, glistening soft tissue measuring 4.9 x 2.5 x 1.4 cm in greatest dimensions. The specimen is submitted representatively in cassette A1. B. The specimen is received in formalin labeled "Latoya Isbell, intra-articular tissue R knee". Received is a segment of white-dukes soft tissue measuring 4.6 x 2.4 x 1.0 cm in greatest dimensions. The specimen is submitted representatively in cassette B1. (CAA; 11/30/2016) INITIAL CPT CODE(S): 73213(2) Professional services performed [place] [address] Technical services performed by [facility] at [address] [place] [address], [address] [place] [address]. SPECIMEN(S) RECEIVED: A.Right anterior knee tissue B.Interarticular right knee tissue CLINICAL HISTORY: Right septic knee PATIENT: LATOYA ISBELL /AGE: 705/04/1960 (Age: 56) PATIENT #: [id number] ALT CASE #: SPECIMEN COLLECTION DATE: 11/28/2016 SPECIMEN RECEIVED DATE: 11/29/2016 [facility] - [address] [place] [address] - PHONE: [phone] * * * END OF REPORT * * *
[2016-12-01] MEDS: IV NORMAL SALINE 1000ML BAG 1,000 ML IV SCH (17:00)
[2016-12-01] MEDS: NIACIN ER 500 MG TABLET.ER PO SCH (20:59)
[2016-12-01] MEDS: INSULIN DETEMIR 300 UNITS/3 ML INSULN.PEN. SQ SCH (22:13)
[2016-12-02 03:00] VITALS: BP 144/64
[2016-12-02] MEDS: AMPICILLIN/SULBACTAM 3 GM in IV NORMAL SALINE 100ML 100 ML IV SCH ×5 (06:13→17:04)
[2016-12-02] MEDS: INSULIN ASPART 300 UNITS/3 ML INSULN.PEN SQ SCH ×5 (07:30→17:12)
[2016-12-02 07:55] VITALS: BP 161/67
[2016-12-02] MEDS ORDERED: MAGNESIUM SULFATE 4GM 100 ML IV ONE (08:15)
[2016-12-02 11:13] VITALS: BP 146/63
--- NOTE | 2016-12-02 11:16 | PDOC ---
SUBJECTIVE Subjective c/o being tired and sleepy, pain controlled OBJECTIVE Vital Signs Vital Signs Date Time Temp Pulse Resp B/P Pulse Ox O2 Delivery O2 Flow Rate FiO2 12/02/16 07:55 98.9 75 20 161/67 95 Room Air 98.9 12/02/16 03:00 99.3 78 18 144/64 95 Room Air 99.3 12/01/16 23:00 99.6 80 18 151/60 94 Room Air 99.6 12/01/16 22:06 18 12/01/16 20:30 Room Air 12/01/16 19:15 99.4 77 18 140/63 96 Room Air 99.4 12/01/16 17:33 Room Air 12/01/16 17:00 Room Air I & O Intake and Output 12/02/16 07:00 Intake Total 580 ml Balance 580 ml Intake Oral 480 ml IV Total 100 ml # Voids 5 PHYSICAL EXAM Physical Exam heart RRR abd soft R Knee sweling and warm, wound vac on ASSESSMENT/PLAN Assessment/Plan 1. Right septic knee with osteomylitis -s/p I and D x2 (11/29 and 11/30) -Groshong catheter in place plan for surgery Sunday 2. 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 Acute on chronic renal failure 4. DM, insulin dependent -adjusted Levemir Problems: COMMENT Lab Laboratory Tests Test 12/01/16 16:47 12/01/16 21:05 12/02/16 06:00 12/02/16 07:45 Glucose (Fingerstick) 282mg/dL (70-99) 240mg/dL (70-99) 268mg/dL (70-99) Magnesium Level 1.7mg/dL (1.8-2.4) FRED SAWYER MD Dec 02, 2016 11:16
--- NOTE | 2016-12-02 11:17 | RAD ---
Ultrasound and fluoroscopy guided tunneled Power Line insertion Indication: 56-year-old male with septic arthritis. He has poor peripheral IV access. He has chronic kidney disease, therefore, PICC insertion is contraindicated. Tunneled jugular power line insertion has been requested. Anesthesia: 37 minutes moderate sedation was provided utilizing a total of 1 mg Versed and 50 mcg fentanyl, IV. The patient was appropriately monitored by a qualified independent observer throughout the time of moderate sedation. Fluoroscopy time: 1.2 minutes Kerma-Area Product: 3 Gycm2 Antibiotic: The patient received scheduled antibiotic within 1 hour of the procedure start time. No additional prophylactic antibiotic was considered indicated. Consent: The procedure was explained in its entirety to the patient and/or the patient's designated treasury representative by a member of the treatment team. This included a discussion of risks and benefits and commonly accepted alternatives to the procedure, as well as expected consequences of no treatment at all. Discussion of risks included, but was not limited to, those that are most frequent and those that are rare, but possibly severe or life-threatening, as well as the possibility of unforeseen complications. Sterility: All elements of maximal sterile barrier technique, including the use of a cap, mask, sterile gown, sterile gloves, large sterile sheet, appropriate hand hygiene, and 2% chlorhexidine for cutaneous antisepsis (or acceptable alternative antiseptic per current guidelines) were utilized. Procedure: Informed consent was obtained from the patient. He was placed supine on the angiography table. Preliminary ultrasound examination of right neck revealed wide patency of right internal jugular vein, which was documented with a single hard copy ultrasound image. Right neck and upper chest were then prepped and draped in the usual sterile fashion, utilizing all elements of maximal sterile barrier technique, as described above. Conscious sedation was provided with IV Versed and fentanyl. . Using aseptic technique and local anesthesia, a small supraclavicular skin incision was made lateral to right internal jugular vein. Using aseptic technique, local anesthesia, and direct ultrasound guidance, a small micropuncture sheath was successfully introduced through the small dermatotomy into right internal jugular vein, over a microguidewire, which was positioned with its tip within mid right atrium. A second small skin incision was then made along upper anterior aspect of right chest. A subcutaneous tunnel was fashioned between the right chest and supraclavicular incisions. A 5 Haitian dual lumen Power Line was then pulled through the subcutaneous tunnel from inferior to superior, utilizing the tunneling device provided. The micropuncture sheath was then exchanged over a guidewire for a 5 Haitian peel-away sheath. The Power Line was then trimmed to 25 cm in length, was advanced through the 5 Haitian peel-away sheath, and was positioned with its tip at the level of upper right atrium utilizing fluoroscopic guidance. Satisfactory position of the Power Line was confirmed with a single fluoroscopic spot image. The Power Line was then demonstrated to flush and aspirate normally, was packed, and was secured at the right chest exit site utilizing suture and sterile dressing. Patient tolerated the procedure well without apparent complication. Impression: Successful, uneventful ultrasound and fluoroscopy guided insertion of a 5 Haitian dual-lumen right jugular tunneled Power Line, as described.
[2016-12-02] MEDS: MYCOPHENOLATE ACID 180 MG TABLET.DR. PO SCH ×2 (12:13→22:47)
[2016-12-02] MEDS: TACROLIMUS 1 MG CAPSULE PO SCH ×2 (12:13→22:47)
[2016-12-02] MEDS: FLUDROCORTISONE 0.1 MG TABLET PO SCH (13:05)
[2016-12-02] MEDS: OMEGA-3 FATTY ACIDS/FISH OIL 1,000 MG CAPSULE. PO SCH (13:06)
[2016-12-02] MEDS: CHOLECALCIFEROL (VITAMIN D3) 1,000 UNIT TABLET PO SCH (13:06)
[2016-12-02] MEDS: DULOXETINE HCL 30 MG CAPSULE.DR. PO SCH (13:06)
[2016-12-02] MEDS: ASPIRIN ENTERIC COATED 81 MG TABLET.DR. PO SCH (13:06)
[2016-12-02] MEDS: FENTANYL PF 100 MCG/2 ML VIAL. IV PRN ×3 (14:16→22:41)
[2016-12-02 14:20] VITALS: BP 135/56
[2016-12-02 15:26] LABS: ALBUMIN 1.7 g/dL (3.4-5.0); CALCIUM 8.7 mg/dL (8.5-10.1); CREATININE 1.3 mg/dL (0.7-1.3); GFR 56.9; PHOSPHORUS 3.6 mg/dL (2.6-4.7); POTASSIUM 3.6 mmol/L (3.5-5.1)
[2016-12-02] MEDS: IV NORMAL SALINE 1000ML BAG 1,000 ML IV SCH (18:00)
[2016-12-02 19:00] VITALS: BP 126/56
[2016-12-02] MEDS ORDERED: INSULIN DETEMIR 300 UNITS/3 ML INSULN.PEN. SQ SCH (21:00)
[2016-12-02] MEDS: NIACIN ER 500 MG TABLET.ER PO SCH (22:47)
[2016-12-02 23:00] VITALS: BP 103/47
[2016-12-03] MEDS: AMPICILLIN/SULBACTAM 3 GM in IV NORMAL SALINE 100ML 100 ML IV SCH ×4 (00:44→17:19)
[2016-12-03 03:00] VITALS: BP 149/53
[2016-12-03] MEDS: FENTANYL PF 100 MCG/2 ML VIAL. IV PRN ×3 (03:26→17:19)
[2016-12-03 06:09] LABS: HEMATOCRIT 28.3 % (39.0-53.0); HEMOGLOBIN 9.3 g/dL (13.0-17.5); RED BLOOD COUNT 3.24 x10^6/uL (4.30-5.70); RED CELL DISTRIBUTION WIDTH 14.9 % (11.5-14.5); WHITE BLOOD COUNT 6.8 x10^3/uL (4.0-11.0)
[2016-12-03 06:28] LABS: CALCIUM 8.6 mg/dL (8.5-10.1); CREATININE 1.3 mg/dL (0.7-1.3); GFR 56.9; POTASSIUM 3.5 mmol/L (3.5-5.1)
--- NOTE | 2016-12-03 06:48 | PDOC ---
PROGRESS NOTES Subjective Subjective Problems overnight: no acute problems. mcc line placed on sunday. wv output 150/250 over the past two days. pain well controlled. no fevers, nausea, or vomiting. bg still very elevated Objective Vital Signs Vital Signs Date Time Temp Pulse Resp B/P Pulse Ox O2 Delivery O2 Flow Rate FiO2 12/03/16 03:56 16 96 Room Air 12/03/16 03:00 99.1 71 149/53 99.1 11/30/16 16:04 2 Physical Exam rle wv to suction. otherwise unchanged Labs Laboratory Tests Test 12/01/16 07:15 12/01/16 11:03 12/01/16 16:47 12/01/16 21:05 Glucose (Fingerstick) 252mg/dL (70-99) 293mg/dL (70-99) 282mg/dL (70-99) 240mg/dL (70-99) Test 12/02/16 06:00 12/02/16 07:45 12/02/16 12:02 12/02/16 16:11 Sodium Level 138mmol/L (136-145) Potassium Level 3.6mmol/L (3.5-5.1) Chloride Level 103mmol/L (98-107) Carbon Dioxide Level 27mmol/L (21-32) Anion Gap 8 (6-14) Blood Urea Nitrogen 15mg/dL (8-26) Creatinine 1.3mg/dL (0.7-1.3) Estimated GFR (Cockcroft-Gault) 56.9 Glucose Level 285mg/dL (70-99) Calcium Level 8.7mg/dL (8.5-10.1) Phosphorus Level 3.6mg/dL (2.6-4.7) Magnesium Level 1.7mg/dL (1.8-2.4) Albumin 1.7g/dL (3.4-5.0) Glucose (Fingerstick) 268mg/dL (70-99) 246mg/dL (70-99) 218mg/dL (70-99) Test 12/02/16 20:58 12/03/16 06:00 Glucose (Fingerstick) 259mg/dL (70-99) White Blood Count 6.8x10^3/uL (4.0-11.0) Red Blood Count 3.24x10^6/uL (4.30-5.70) Hemoglobin 9.3g/dL (13.0-17.5) Hematocrit 28.3% (39.0-53.0) Mean Corpuscular Volume 87fL (79-100) Mean Corpuscular Hemoglobin 29pg (25-35) Mean Corpuscular Hemoglobin Concent 33g/dL (31-37) Red Cell Distribution Width 14.9% (11.5-14.5) Platelet Count 282x10^3/uL (140-400) Sodium Level 139mmol/L (136-145) Potassium Level 3.5mmol/L (3.5-5.1) Chloride Level 102mmol/L (98-107) Carbon Dioxide Level 28mmol/L (21-32) Anion Gap 9 (6-14) Blood Urea Nitrogen 9mg/dL (8-26) Creatinine 1.3mg/dL (0.7-1.3) Estimated GFR (Cockcroft-Gault) 56.9 Glucose Level 297mg/dL (70-99) Calcium Level 8.6mg/dL (8.5-10.1) Magnesium Level 1.7mg/dL (1.8-2.4) Laboratory Tests Test 12/02/16 07:45 12/02/16 12:02 12/02/16 16:11 12/02/16 20:58 Glucose (Fingerstick) 268mg/dL (70-99) 246mg/dL (70-99) 218mg/dL (70-99) 259mg/dL (70-99) Test 12/03/16 06:00 White Blood Count 6.8x10^3/uL (4.0-11.0) Red Blood Count 3.24x10^6/uL (4.30-5.70) Hemoglobin 9.3g/dL (13.0-17.5) Hematocrit 28.3% (39.0-53.0) Mean Corpuscular Volume 87fL (79-100) Mean Corpuscular Hemoglobin 29pg (25-35) Mean Corpuscular Hemoglobin Concent 33g/dL (31-37) Red Cell Distribution Width 14.9% (11.5-14.5) Platelet Count 282x10^3/uL (140-400) Sodium Level 139mmol/L (136-145) Potassium Level 3.5mmol/L (3.5-5.1) Chloride Level 102mmol/L (98-107) Carbon Dioxide Level 28mmol/L (21-32) Anion Gap 9 (6-14) Blood Urea Nitrogen 9mg/dL (8-26) Creatinine 1.3mg/dL (0.7-1.3) Estimated GFR (Cockcroft-Gault) 56.9 Glucose Level 297mg/dL (70-99) Calcium Level 8.6mg/dL (8.5-10.1) Magnesium Level 1.7mg/dL (1.8-2.4) Assessment Assessment POD# 3 and 5 , S/P right knee excisional debridement for septic arthritis Plan to return to the OR at 10 am sunday for repeat debridement and wound vac exchanges vs closure. will know more about prognosis at that time. npo at midnight Problems: MADISON REDMAN MD Dec 03, 2016 06:48
[2016-12-03 07:00] VITALS: BP 150/57
[2016-12-03] MEDS: OMEGA-3 FATTY ACIDS/FISH OIL 1,000 MG CAPSULE. PO SCH (08:27)
[2016-12-03] MEDS: IV NORMAL SALINE 1000ML BAG 1,000 ML IV SCH (08:27)
[2016-12-03] MEDS: FLUDROCORTISONE 0.1 MG TABLET PO SCH (08:27)
[2016-12-03] MEDS: TACROLIMUS 1 MG CAPSULE PO SCH ×2 (08:27→21:03)
[2016-12-03] MEDS: DULOXETINE HCL 30 MG CAPSULE.DR. PO SCH (08:27)
[2016-12-03] MEDS: MYCOPHENOLATE ACID 180 MG TABLET.DR. PO SCH ×2 (08:27→21:04)
[2016-12-03] MEDS: ASPIRIN ENTERIC COATED 81 MG TABLET.DR. PO SCH (08:28)
[2016-12-03] MEDS: CHOLECALCIFEROL (VITAMIN D3) 1,000 UNIT TABLET PO SCH (08:28)
[2016-12-03] MEDS: INSULIN ASPART 300 UNITS/3 ML INSULN.PEN SQ SCH ×5 (08:40→17:27)
[2016-12-03 11:00] VITALS: BP 151/67
--- NOTE | 2016-12-03 11:54 | PDOC ---
SUBJECTIVE Subjective sllepy, not compliant with diet, having outside food brought in OBJECTIVE Objective low grade temp Vital Signs Vital Signs Date Time Temp Pulse Resp B/P Pulse Ox O2 Delivery O2 Flow Rate FiO2 12/03/16 09:22 Room Air 12/03/16 08:28 Room Air 12/03/16 07:00 98.2 66 16 150/57 96 Room Air 98.2 12/03/16 03:56 16 96 12/03/16 03:26 16 96 Room Air 12/03/16 03:00 99.1 71 18 149/53 96 Room Air 99.1 12/02/16 23:00 99.3 74 18 103/47 96 Room Air 99.3 12/02/16 22:41 16 95 Room Air 12/02/16 20:00 Room Air 12/02/16 19:00 98.6 81 18 126/56 95 Room Air 98.6 12/02/16 17:12 Room Air 12/02/16 14:20 99.0 68 20 135/56 98 Room Air 99.0 12/02/16 14:16 Room Air I & O Intake and Output 12/03/16 07:00 Intake Total 840 ml Balance 840 ml Intake Oral 840 ml # Voids 4 # Bowel Movements 1 PHYSICAL EXAM Physical Exam R knee still warm and swelling ASSESSMENT/PLAN Assessment/Plan 1. Right septic knee with osteomylitis -s/p I and D x2 (11/29 and 11/30) -Groshong catheter in place plan for surgery Sunday another debreidment 2. 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 Acute on chronic renal failure 4. DM, insulin dependent -adjusted Levemir add sliding scale Problems: COMMENT Lab Laboratory Tests Test 12/02/16 12:02 12/02/16 16:11 12/02/16 20:58 12/03/16 06:00 Glucose (Fingerstick) 246mg/dL (70-99) 218mg/dL (70-99) 259mg/dL (70-99) White Blood Count 6.8x10^3/uL (4.0-11.0) Red Blood Count 3.24x10^6/uL (4.30-5.70) Hemoglobin 9.3g/dL (13.0-17.5) Hematocrit 28.3% (39.0-53.0) Mean Corpuscular Volume 87fL (79-100) Mean Corpuscular Hemoglobin 29pg (25-35) Mean Corpuscular Hemoglobin Concent 33g/dL (31-37) Red Cell Distribution Width 14.9% (11.5-14.5) Platelet Count 282x10^3/uL (140-400) Sodium Level 139mmol/L (136-145) Potassium Level 3.5mmol/L (3.5-5.1) Chloride Level 102mmol/L (98-107) Carbon Dioxide Level 28mmol/L (21-32) Anion Gap 9 (6-14) Blood Urea Nitrogen 9mg/dL (8-26) Creatinine 1.3mg/dL (0.7-1.3) Estimated GFR (Cockcroft-Gault) 56.9 Glucose Level 297mg/dL (70-99) Calcium Level 8.6mg/dL (8.5-10.1) Magnesium Level 1.7mg/dL (1.8-2.4) Test 12/03/16 07:41 Glucose (Fingerstick) 277mg/dL (70-99) FRED SAWYER MD Dec 03, 2016 11:54
[2016-12-03] MEDS: ENOXAPARIN 40 MG/0.4 ML DISP.SYRIN. SQ SCH (12:08)
[2016-12-03 15:00] VITALS: BP 144/49
[2016-12-03 16:18] LABS: ALBUMIN 1.6 g/dL (3.4-5.0); PHOSPHORUS 4.3 mg/dL (2.6-4.7)
[2016-12-03 19:00] VITALS: BP 136/59
[2016-12-03] MEDS ORDERED: INSULIN DETEMIR 300 UNITS/3 ML INSULN.PEN. SQ ONE (21:00)
[2016-12-03] MEDS ORDERED: INSULIN DETEMIR 300 UNITS/3 ML INSULN.PEN. SQ SCH (21:00)
[2016-12-03] MEDS: NIACIN ER 500 MG TABLET.ER PO SCH (21:04)
[2016-12-03] MEDS: ACETAMINOPHEN 325 MG TABLET. PO PRN (21:13)
[2016-12-03] MEDS ORDERED: MORPHINE SULFATE 2 MG/ML DISP.SYRIN. IV PRN (22:15)
[2016-12-03] MEDS ORDERED: MORPHINE SULFATE 4 MG/ML DISP.SYRIN. IV PRN (22:15)
[2016-12-03 23:00] VITALS: BP 170/62
[2016-12-04] VITALS (11 sets, daily range): BP systolic 122–175; BP diastolic 53–79
[2016-12-04] MEDS: AMPICILLIN/SULBACTAM 3 GM in IV NORMAL SALINE 100ML 100 ML IV SCH ×4 (00:37→17:13)
[2016-12-04 06:01] LABS: BASO # 0.1 x10^3/uL (0.0-0.2); BASO % 1 % (0-3); EOS % 4 % (0-3); HEMATOCRIT 27.8 % (39.0-53.0); HEMOGLOBIN 9.2 g/dL (13.0-17.5); LYMPH # 1.2 x10^3/uL (1.0-4.8); LYMPH % 15 % (24-48); MEAN CORPUSCULAR HEMOGLOBIN 29 pg (25-35); MEAN CORPUSCULAR HGB CONC 33 g/dL (31-37); MEAN CORPUSCULAR VOLUME 87 fL (79-100); MONO % 13 % (0-9); NEUT % 68 % (31-73); PLATELET COUNT 310 x10^3/uL (140-400); RED CELL DISTRIBUTION WIDTH 15.2 % (11.5-14.5)
[2016-12-04] MEDS ORDERED: ONDANSETRON PF 4 MG/2 ML VIAL. IV PRN (07:00)
[2016-12-04] MEDS ORDERED: PROCHLORPERAZINE 10 MG/2 ML VIAL. IV PRN (07:00)
[2016-12-04] MEDS ORDERED: FENTANYL PF 100 MCG/2 ML VIAL. IV PRN ×2 (07:00)
[2016-12-04] MEDS ORDERED: HYDROMORPHONE 2 MG/ML VIAL. IV PRN (07:00)
[2016-12-04] MEDS ORDERED: MORPHINE SULFATE 2 MG/ML DISP.SYRIN. IV PRN (07:00)
[2016-12-04] MEDS ORDERED: LIDOCAINE 1% 1 ML SYRINGE. ID PRN (07:00)
[2016-12-04] MEDS ORDERED: IV RINGERS,LACTATED 1000ML 1,000 ML IV SCH (07:00)
[2016-12-04] MEDS ORDERED: BUPIVACAINE-EPI 0.25%-1:200000 MPF 30 ML VIAL. ONE (07:19)
[2016-12-04] MEDS: INSULIN ASPART 300 UNITS/3 ML INSULN.PEN SQ SCH ×6 (07:30→17:17)
[2016-12-04] MEDS: OMEGA-3 FATTY ACIDS/FISH OIL 1,000 MG CAPSULE. PO SCH (08:01)
[2016-12-04] MEDS: DULOXETINE HCL 30 MG CAPSULE.DR. PO SCH (08:01)
[2016-12-04] MEDS: ASPIRIN ENTERIC COATED 81 MG TABLET.DR. PO SCH (08:01)
[2016-12-04] MEDS: FLUDROCORTISONE 0.1 MG TABLET PO SCH (08:02)
[2016-12-04] MEDS: CHOLECALCIFEROL (VITAMIN D3) 1,000 UNIT TABLET PO SCH (08:02)
[2016-12-04] MEDS: TACROLIMUS 1 MG CAPSULE PO SCH ×3 (08:02→21:02)
[2016-12-04] MEDS: MYCOPHENOLATE ACID 180 MG TABLET.DR. PO SCH ×3 (08:02→21:03)
[2016-12-04] MEDS ORDERED: PROPOFOL 20 ML IV ONE (08:42)
[2016-12-04] MEDS ORDERED: DEXAMETHASONE SOD PHOS 20 MG/5 ML VIAL. ONE (08:42)
[2016-12-04] MEDS ORDERED: ONDANSETRON PF 4 MG/2 ML VIAL. ONE (08:42)
[2016-12-04] MEDS ORDERED: LIDOCAINE 2% 100 MG/5 ML DISP.SYRIN. ONE (08:42)
[2016-12-04] MEDS ORDERED: FENTANYL PF 100 MCG/2 ML VIAL. ONE (08:42)
[2016-12-04] MEDS ORDERED: SUCCINYLCHOLINE 200 MG/10 ML VIAL. ONE (08:43)
--- NOTE | 2016-12-04 08:47 | PDOC ---
Infectious Disease Note Subjective Subjective Pt not feeling very well this am, +sweating. Pt reports feeling like this with low bs. Recheck bs 91. ROS ROS GEN: Denies fevers, chills HEENT: Denies blurred vision, sore throat CV: Denies chest pain RESP: Denies shortness of air, cough GI: Denies n/v/d NEURO: Denies confusion, dizziness MSK: Denies weakness, joint pain/swelling Vital Sign Vital Signs Vital Signs Date Time Temp Pulse Resp B/P Pulse Ox O2 Delivery O2 Flow Rate FiO2 12/04/16 03:00 98.5 70 18 131/60 95 Room Air 98.5 Physical Exam PHYSICAL EXAM GENERAL: NAD, Alert HEENT: PERRL, OC/OP NECK: Supple, no JVD, no LN LUNGS: Clear HEART: S1S2, no gallop, no murmur ABD: Soft, NT, no organomegaly, no rebound EXT: No edema, no cyanosis ARMATURE WINDER REPAIRER: Alert, oriented x 3, no focal neurologic deficit SKIN: No rash IV: ok Labs Lab Laboratory Tests Test 12/03/16 11:47 12/03/16 16:42 12/03/16 20:55 12/04/16 05:45 Glucose (Fingerstick) 245mg/dL (70-99) 174mg/dL (70-99) 210mg/dL (70-99) White Blood Count 8.0x10^3/uL (4.0-11.0) Red Blood Count 3.20x10^6/uL (4.30-5.70) Hemoglobin 9.2g/dL (13.0-17.5) Hematocrit 27.8% (39.0-53.0) Mean Corpuscular Volume 87fL (79-100) Mean Corpuscular Hemoglobin 29pg (25-35) Mean Corpuscular Hemoglobin Concent 33g/dL (31-37) Red Cell Distribution Width 15.2% (11.5-14.5) Platelet Count 310x10^3/uL (140-400) Neutrophils (%) (Auto) 68% (31-73) Lymphocytes (%) (Auto) 15% (24-48) Monocytes (%) (Auto) 13% (0-9) Eosinophils (%) (Auto) 4% (0-3) Basophils (%) (Auto) 1% (0-3) Neutrophils # (Auto) 5.4x10^3uL (1.8-7.7) Lymphocytes # (Auto) 1.2x10^3/uL (1.0-4.8) Monocytes # (Auto) 1.0x10^3/uL (0.0-1.1) Eosinophils # (Auto) 0.3x10^3/uL (0.0-0.7) Basophils # (Auto) 0.1x10^3/uL (0.0-0.2) Sodium Level 140mmol/L (136-145) Potassium Level 3.2mmol/L (3.5-5.1) Chloride Level 104mmol/L (98-107) Carbon Dioxide Level 29mmol/L (21-32) Anion Gap 7 (6-14) Blood Urea Nitrogen 11mg/dL (8-26) Creatinine 1.2mg/dL (0.7-1.3) Estimated GFR (Cockcroft-Gault) 62.4 Glucose Level 141mg/dL (70-99) Calcium Level 8.5mg/dL (8.5-10.1) Magnesium Level 1.5mg/dL (1.8-2.4) Test 12/04/16 07:39 Glucose (Fingerstick) 91mg/dL (70-99) Objective Assessment Right septic knee s/p I and D x2 Group B strep so far - wound VAC placed on 11/30 S/p Right chest line placed Immunosuppression CKD DM elevated FSBS Plan Plan of Care Cont Unasyn F/u labs Awaiting further surgery 12/04 Leg elevation [facility] [employer] D/w KITTY KUMAR MD Dec 04, 2016 08:47
[2016-12-04 10:30] LABS: ALBUMIN 1.5 g/dL (3.4-5.0); CREATININE 1.2 mg/dL (0.7-1.3); GFR 62.4; PHOSPHORUS 4.8 mg/dL (2.6-4.7)
[2016-12-04 10:39] LABS: CALCIUM 8.5 mg/dL (8.5-10.1); POTASSIUM 3.2 mmol/L (3.5-5.1)
[2016-12-04] MEDS ORDERED: EPHEDRINE PF IN SALINE 50 MG/5 ML DISP.SYRIN. IV ONE (10:40)
--- NOTE | 2016-12-04 11:07 | PDOC ---
Renal-Progress Notes Subjective Notes Notes NONE History of Present Illness Hx of present illness STABLE Vitals Vitals Vital Signs Date Time Temp Pulse Resp B/P Pulse Ox O2 Delivery O2 Flow Rate FiO2 12/04/16 09:11 97 72 18 176/79 96 Room Air 97.0 Weight Weight [ ] I.O. Intake and Output Intake and Output 12/04/16 06:59 # Voids 3 Labs Labs Laboratory Tests Test 12/03/16 11:47 12/03/16 16:42 12/03/16 20:55 12/04/16 05:45 Glucose (Fingerstick) 245mg/dL (70-99) 174mg/dL (70-99) 210mg/dL (70-99) White Blood Count 8.0x10^3/uL (4.0-11.0) Red Blood Count 3.20x10^6/uL (4.30-5.70) Hemoglobin 9.2g/dL (13.0-17.5) Hematocrit 27.8% (39.0-53.0) Mean Corpuscular Volume 87fL (79-100) Mean Corpuscular Hemoglobin 29pg (25-35) Mean Corpuscular Hemoglobin Concent 33g/dL (31-37) Red Cell Distribution Width 15.2% (11.5-14.5) Platelet Count 310x10^3/uL (140-400) Neutrophils (%) (Auto) 68% (31-73) Lymphocytes (%) (Auto) 15% (24-48) Monocytes (%) (Auto) 13% (0-9) Eosinophils (%) (Auto) 4% (0-3) Basophils (%) (Auto) 1% (0-3) Neutrophils # (Auto) 5.4x10^3uL (1.8-7.7) Lymphocytes # (Auto) 1.2x10^3/uL (1.0-4.8) Monocytes # (Auto) 1.0x10^3/uL (0.0-1.1) Eosinophils # (Auto) 0.3x10^3/uL (0.0-0.7) Basophils # (Auto) 0.1x10^3/uL (0.0-0.2) Sodium Level 140mmol/L (136-145) Potassium Level 3.2mmol/L (3.5-5.1) Chloride Level 104mmol/L (98-107) Carbon Dioxide Level 29mmol/L (21-32) Anion Gap 7 (6-14) Blood Urea Nitrogen 11mg/dL (8-26) Creatinine 1.2mg/dL (0.7-1.3) Estimated GFR (Cockcroft-Gault) 62.4 Glucose Level 141mg/dL (70-99) Calcium Level 8.5mg/dL (8.5-10.1) Phosphorus Level 4.8mg/dL (2.6-4.7) Magnesium Level 1.5mg/dL (1.8-2.4) Albumin 1.5g/dL (3.4-5.0) Test 12/04/16 07:39 12/04/16 08:15 Glucose (Fingerstick) 91mg/dL (70-99) 93mg/dL (70-99) Micro Micro Microbiology 11/30/16 Anaerobic/Aerobic Culture - Preliminary, Resulted 11/30/16 Anaerobic Culture Result 1 (GUILLERMINA) - Preliminary, Resulted 11/30/16 Aerobic Culture - Final, Resulted 11/30/16 Aerobic Culture Result 1 (GUILLERMINA) - Final, Resulted Review of Systems Constitutional: yes: alert, weakness Ears/Nose/Throat: Yes: no symptom reported Cardiovascular: Yes no symptom reported Gastrointestional: Yes: no symptom reported Genitourinary: Yes: no symptom reported Skin: Yes no symptom reported Physical Exam General Appearance: no apparent distress Skin: warm Respiratory: bilateral CTA Heart: S1S2, no thrills Abdomen: soft, bowel sounds present Extremities: pulses present Neurology: alert Musculoskeletal: Muscle atrophy, Weakness Assessment Assessment IMP RIGHT KNEE INFECTION CHRONIC IMMUNOSUPPRESSION S/P RENAL TX WITH CR OF 1.2 HYPOKALEMIA PLAN CONT PROGRAF AND MYFORTIC REPLACE K ANTIBIOTICS SURGERY EVAL AND TX WILL FOLLOW MARILEE MCCARTHY MD Dec 04, 2016 11:07
--- NOTE | 2016-12-04 11:33 | PDOC ---
SUBJECTIVE Subjective going for surgery today OBJECTIVE Vital Signs Vital Signs Date Time Temp Pulse Resp B/P Pulse Ox O2 Delivery O2 Flow Rate FiO2 12/04/16 09:11 97 72 18 176/79 96 Room Air 97.0 12/04/16 07:20 Room Air 12/04/16 07:00 97.5 69 18 144/53 96 Room Air 97.5 12/04/16 03:00 98.5 70 18 131/60 95 Room Air 98.5 12/03/16 23:00 99.3 75 18 170/62 94 Room Air 99.3 12/03/16 20:00 Room Air 12/03/16 19:00 98.7 78 18 136/59 98 Room Air 98.7 12/03/16 18:06 Room Air 12/03/16 17:19 Room Air 12/03/16 15:00 98.2 69 16 144/49 98 Room Air 98.2 I & O Intake and Output 12/04/16 07:00 # Voids 3 PHYSICAL EXAM Physical Exam no change ASSESSMENT/PLAN Assessment/Plan 1. Right septic knee with osteomylitis -s/p I and D x2 (11/29 and 11/30) -Groshong catheter in place another debreidment today 2. 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 Acute on chronic renal failure 4. DM, insulin dependent -adjusted Levemir add sliding scale 5- hypokalemia replacing Problems: COMMENT Lab Laboratory Tests Test 12/03/16 11:47 12/03/16 16:42 12/03/16 20:55 12/04/16 05:45 Glucose (Fingerstick) 245mg/dL (70-99) 174mg/dL (70-99) 210mg/dL (70-99) White Blood Count 8.0x10^3/uL (4.0-11.0) Red Blood Count 3.20x10^6/uL (4.30-5.70) Hemoglobin 9.2g/dL (13.0-17.5) Hematocrit 27.8% (39.0-53.0) Mean Corpuscular Volume 87fL (79-100) Mean Corpuscular Hemoglobin 29pg (25-35) Mean Corpuscular Hemoglobin Concent 33g/dL (31-37) Red Cell Distribution Width 15.2% (11.5-14.5) Platelet Count 310x10^3/uL (140-400) Neutrophils (%) (Auto) 68% (31-73) Lymphocytes (%) (Auto) 15% (24-48) Monocytes (%) (Auto) 13% (0-9) Eosinophils (%) (Auto) 4% (0-3) Basophils (%) (Auto) 1% (0-3) Neutrophils # (Auto) 5.4x10^3uL (1.8-7.7) Lymphocytes # (Auto) 1.2x10^3/uL (1.0-4.8) Monocytes # (Auto) 1.0x10^3/uL (0.0-1.1) Eosinophils # (Auto) 0.3x10^3/uL (0.0-0.7) Basophils # (Auto) 0.1x10^3/uL (0.0-0.2) Sodium Level 140mmol/L (136-145) Potassium Level 3.2mmol/L (3.5-5.1) Chloride Level 104mmol/L (98-107) Carbon Dioxide Level 29mmol/L (21-32) Anion Gap 7 (6-14) Blood Urea Nitrogen 11mg/dL (8-26) Creatinine 1.2mg/dL (0.7-1.3) Estimated GFR (Cockcroft-Gault) 62.4 Glucose Level 141mg/dL (70-99) Calcium Level 8.5mg/dL (8.5-10.1) Phosphorus Level 4.8mg/dL (2.6-4.7) Magnesium Level 1.5mg/dL (1.8-2.4) Albumin 1.5g/dL (3.4-5.0) Test 12/04/16 07:39 12/04/16 08:15 Glucose (Fingerstick) 91mg/dL (70-99) 93mg/dL (70-99) FRED SAWYER MD Dec 04, 2016 11:33
[2016-12-04] MEDS ORDERED: POTASSIUM CHLORIDE 20 MEQ TABLET.ER. PO ONE (12:00)
--- NOTE | 2016-12-04 12:00 | PDOC ---
BRIEF OPERATIVE NOTE Date: Dec 04, 2016 Pre-Op Diagnosis right septic knee arthritis Post-Op Diagnosis same Procedure Performed irrigation and debridement of right knee, wound vac exchange Surgeon Madison Redman MD Harbormaster none Anesthesia Type: General Specimens Obtained culture x 1 Findings extensor mechanism intact, no purulence noted. capsulotomy present medially with minimal drainage from the joint Complications none Additional Remarks Plan to return to the OR on . Hopefull to either replace the wound vac with a smaller sponge or possibly be able to close primarily. Will continue to wash out every 3-4 days until able to close primarily Needs a hinged knee brace, ok for ROM 0-30 degrees. Can start working with PT / OT to ambulate in the hinged knee brace MADISON REDMAN MD Dec 04, 2016 12:00
[2016-12-04] MEDS: POTASSIUM CHLORIDE 20 MEQ TABLET.ER. PO SCH (12:36)
[2016-12-04] MEDS: ENOXAPARIN 40 MG/0.4 ML DISP.SYRIN. SQ SCH (13:00)
[2016-12-04] MEDS: IV NORMAL SALINE 1000ML BAG 1,000 ML IV SCH (17:13)
[2016-12-04] MEDS: ACETAMINOPHEN 325 MG TABLET. PO PRN ×2 (18:19→21:03)
[2016-12-04] MEDS ORDERED: INSULIN DETEMIR 300 UNITS/3 ML INSULN.PEN. SQ SCH (21:00)
[2016-12-04] MEDS: NIACIN ER 500 MG TABLET.ER PO SCH (21:03)
[2016-12-05] MEDS: AMPICILLIN/SULBACTAM 3 GM in IV NORMAL SALINE 100ML 100 ML IV SCH ×4 (00:34→18:28)
[2016-12-05 03:05] VITALS: BP 142/62
[2016-12-05 07:00] VITALS: BP 154/75
[2016-12-05 07:09] LABS: CALCIUM 8.1 mg/dL (8.5-10.1); CREATININE 1.3 mg/dL (0.7-1.3); GFR 56.9; POTASSIUM 3.6 mmol/L (3.5-5.1)
--- NOTE | 2016-12-05 07:52 | PDOC ---
Infectious Disease Note Subjective Subjective Vomited with sausage but doing well. Pt feeling better this am. Reports no fevers overnight. Pt denies pain in his leg. Tolerating antibiotics well. ROS ROS GEN: Denies fevers, chills, sweats HEENT: Denies blurred vision, sore throat CV: Denies chest pain RESP: Denies shortness of air, cough GI: Denies n/v/d, abdominal pain NEURO: Denies confusion, dizziness MSK: Denies weakness. Complains of joint stiffness in right leg. Vital Sign Vital Signs Vital Signs Date Time Temp Pulse Resp B/P Pulse Ox O2 Delivery O2 Flow Rate FiO2 12/05/16 03:05 97.5 67 18 142/62 96 Room Air 97.5 12/04/16 11:41 10 Physical Exam PHYSICAL EXAM GENERAL: NAD, Alert HEENT: PERRL, OC/OP NECK: Supple, no JVD, no LN LUNGS: Clear HEART: S1S2, no gallop, no murmur ABD: Soft, NT, no organomegaly, no rebound, obese EXT: No edema, no cyanosis, hinged brace in place on right LE S3B MULTI SENSOR OPERATOR: Alert, oriented x 3, no focal neurologic deficit SKIN: No rash IV: Right chest clean Labs Lab Laboratory Tests Test 12/04/16 08:15 12/04/16 11:30 12/04/16 16:28 12/05/16 06:00 Glucose (Fingerstick) 93mg/dL (70-99) 119mg/dL (70-99) 261mg/dL (70-99) Sodium Level 141mmol/L (136-145) Potassium Level 3.6mmol/L (3.5-5.1) Chloride Level 104mmol/L (98-107) Carbon Dioxide Level 28mmol/L (21-32) Anion Gap 9 (6-14) Blood Urea Nitrogen 10mg/dL (8-26) Creatinine 1.3mg/dL (0.7-1.3) Estimated GFR (Cockcroft-Gault) 56.9 Glucose Level 309mg/dL (70-99) Calcium Level 8.1mg/dL (8.5-10.1) Objective Assessment Right septic knee s/p I and D x3 Group B strep so far - wound VAC placed on 11/30 Gram stain from I and D on 12/04 showed no organisms. S/p Right chest line placed Immunosuppression CKD DM elevated FSBS Plan Plan of Care Cont Unasyn F/u labs Plan for repeat surgery on 12/07 for smaller sponge placement or primary closure Leg elevation / Hinged brace in place OK for PT/OT to begin ambulation with brace consumer services consultant D/w KITTY KUMAR MD Dec 05, 2016 07:52
[2016-12-05] MEDS: INSULIN ASPART 300 UNITS/3 ML INSULN.PEN SQ SCH ×6 (08:31→17:00)
[2016-12-05] MEDS: ASPIRIN ENTERIC COATED 81 MG TABLET.DR. PO SCH (09:04)
[2016-12-05] MEDS: OMEGA-3 FATTY ACIDS/FISH OIL 1,000 MG CAPSULE. PO SCH (09:04)
[2016-12-05] MEDS: POTASSIUM CHLORIDE 20 MEQ TABLET.ER. PO SCH (09:04)
[2016-12-05] MEDS: DULOXETINE HCL 30 MG CAPSULE.DR. PO SCH (09:05)
[2016-12-05] MEDS: TACROLIMUS 1 MG CAPSULE PO SCH ×2 (09:05→21:01)
[2016-12-05] MEDS: FLUDROCORTISONE 0.1 MG TABLET PO SCH (09:05)
[2016-12-05] MEDS: CHOLECALCIFEROL (VITAMIN D3) 1,000 UNIT TABLET PO SCH (09:05)
[2016-12-05] MEDS: MYCOPHENOLATE ACID 180 MG TABLET.DR. PO SCH ×2 (09:05→21:01)
--- NOTE | 2016-12-05 09:15 | PDOC ---
SUBJECTIVE Subjective stable OBJECTIVE Vital Signs Vital Signs Date Time Temp Pulse Resp B/P Pulse Ox O2 Delivery O2 Flow Rate FiO2 12/05/16 07:00 98.2 70 16 154/75 92 Ventilator 98.2 12/05/16 03:05 97.5 67 18 142/62 96 Room Air 97.5 12/04/16 23:05 98.1 75 18 125/56 97 Room Air 98.1 12/04/16 20:00 Room Air 12/04/16 19:05 97.7 80 18 122/56 96 Room Air 97.7 12/04/16 17:27 75 16 97 Room Air 12/04/16 16:26 75 16 144/65 97 Room Air 12/04/16 15:26 78 16 146/71 96 Room Air 12/04/16 15:08 97.4 76 16 163/79 96 Room Air 97.4 12/04/16 15:08 97.4 76 16 163/73 96 Room Air 97.4 12/04/16 15:00 97.4 76 16 163/79 96 Room Air 97.4 12/04/16 14:26 74 16 162/73 96 Room Air 12/04/16 13:26 70 16 157/65 92 Room Air 12/04/16 12:41 Room Air 12/04/16 12:27 93.6 79 16 175/74 93 Room Air 93.6 12/04/16 12:12 Room Air 12/04/16 12:10 96.8 78 20 174/74 99 Room Air 96.8 12/04/16 12:00 20 99 Room Air 12/04/16 11:55 96.8 73 20 175/75 94 Room Air 96.8 12/04/16 11:41 Mask 10 12/04/16 11:41 96.8 70 20 166/70 100 Simple Mask 10 96.8 12/04/16 11:26 70 20 125/76 100 Simple Mask 10 I & O Intake and Output 12/05/16 07:00 Intake Total 1610 ml Balance 1610 ml Intake Oral 810 ml IV Total 800 ml # Voids 1 PHYSICAL EXAM Physical Exam new dressing and brace on no change otherwise ASSESSMENT/PLAN Assessment/Plan 1. Right septic knee with osteomylitis -s/p I and D x2 (11/29 and 11/30) -Groshong catheter in place another debreidment 12/04/16 and plans for another one next Sunday noted 2. 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 Acute on chronic renal failure 4. DM, insulin dependent -adjusted Levemir add sliding scale pt became very angry and hostile while talking about diet, will ask Dr. Santos to see while Dr. Cyr out of town Problems: COMMENT Lab Laboratory Tests Test 12/04/16 11:30 12/04/16 16:28 12/05/16 06:00 12/05/16 07:23 Glucose (Fingerstick) 119mg/dL (70-99) 261mg/dL (70-99) 271mg/dL (70-99) Sodium Level 141mmol/L (136-145) Potassium Level 3.6mmol/L (3.5-5.1) Chloride Level 104mmol/L (98-107) Carbon Dioxide Level 28mmol/L (21-32) Anion Gap 9 (6-14) Blood Urea Nitrogen 10mg/dL (8-26) Creatinine 1.3mg/dL (0.7-1.3) Estimated GFR (Cockcroft-Gault) 56.9 Glucose Level 309mg/dL (70-99) Calcium Level 8.1mg/dL (8.5-10.1) FRED SAWYER MD Dec 05, 2016 09:15
[2016-12-05 10:25] LABS: ALBUMIN 1.6 g/dL (3.4-5.0); CREATININE 1.4 mg/dL (0.7-1.3); GFR 52.2; PHOSPHORUS 4.4 mg/dL (2.6-4.7); POTASSIUM 3.5 mmol/L (3.5-5.1)
--- NOTE | 2016-12-05 10:58 | PDOC ---
Renal-Progress Notes Subjective Notes Notes NONE History of Present Illness Hx of present illness STABLE Vitals Vitals Vital Signs Date Time Temp Pulse Resp B/P Pulse Ox O2 Delivery O2 Flow Rate FiO2 12/05/16 07:00 98.2 70 16 154/75 92 Ventilator 98.2 12/04/16 11:41 10 Weight Weight [ ] I.O. Intake and Output Intake and Output 12/05/16 07:00 Intake Total 1610 ml Balance 1610 ml Intake Oral 810 ml IV Total 800 ml # Voids 1 Labs Labs Laboratory Tests Test 12/04/16 11:30 12/04/16 16:28 12/05/16 06:00 12/05/16 07:23 Glucose (Fingerstick) 119mg/dL (70-99) 261mg/dL (70-99) 271mg/dL (70-99) Sodium Level 141mmol/L (136-145) Potassium Level 3.6mmol/L (3.5-5.1) Chloride Level 104mmol/L (98-107) Carbon Dioxide Level 28mmol/L (21-32) Anion Gap 9 (6-14) Blood Urea Nitrogen 10mg/dL (8-26) Creatinine 1.3mg/dL (0.7-1.3) Estimated GFR (Cockcroft-Gault) 56.9 Glucose Level 309mg/dL (70-99) Calcium Level 8.1mg/dL (8.5-10.1) Phosphorus Level 4.4mg/dL (2.6-4.7) Albumin 1.6g/dL (3.4-5.0) Micro Micro Microbiology 12/04/16 Gram Stain - Final, Complete Review of Systems Constitutional: yes: alert, weakness Ears/Nose/Throat: Yes: no symptom reported Cardiovascular: Yes no symptom reported Gastrointestional: Yes: no symptom reported Genitourinary: Yes: no symptom reported Skin: Yes no symptom reported Physical Exam General Appearance: no apparent distress Skin: warm Respiratory: bilateral CTA Heart: S1S2, no thrills Abdomen: soft, bowel sounds present Extremities: pulses present Neurology: alert Musculoskeletal: Muscle atrophy, Weakness Assessment Assessment IMP RIGHT KNEE INFECTION CHRONIC IMMUNOSUPPRESSION S/P RENAL TX WITH CR OF 1.3 HYPOKALEMIA-REPLACED PLAN CONT PROGRAF AND MYFORTIC REPLACE K ANTIBIOTICS SURGERY EVAL AND TX WILL FOLLOW MARILEE MCCARTHY MD Dec 05, 2016 10:58
[2016-12-05 11:00] VITALS: BP 124/42
[2016-12-05] MEDS: ACETAMINOPHEN 325 MG TABLET. PO PRN ×2 (12:42→21:00)
[2016-12-05] MEDS: ENOXAPARIN 40 MG/0.4 ML DISP.SYRIN. SQ SCH (12:52)
--- NOTE | 2016-12-05 14:12 | PDOC ---
PROGRESS NOTES Subjective Subjective Problems overnight: no acute issues. wv to suction, no leak output 150cc Objective Vital Signs Vital Signs Date Time Temp Pulse Resp B/P Pulse Ox O2 Delivery O2 Flow Rate FiO2 12/05/16 11:00 98.9 69 14 124/42 96 Room Air 98.9 12/04/16 11:41 10 Physical Exam RIGHT LOWER EXTREMITY wound vac to suction. 150cc ss output. the rest of his exam is stable. Labs Laboratory Tests Test 12/03/16 16:42 12/03/16 20:55 12/04/16 05:45 12/04/16 07:39 Glucose (Fingerstick) 174mg/dL (70-99) 210mg/dL (70-99) 91mg/dL (70-99) White Blood Count 8.0x10^3/uL (4.0-11.0) Red Blood Count 3.20x10^6/uL (4.30-5.70) Hemoglobin 9.2g/dL (13.0-17.5) Hematocrit 27.8% (39.0-53.0) Mean Corpuscular Volume 87fL (79-100) Mean Corpuscular Hemoglobin 29pg (25-35) Mean Corpuscular Hemoglobin Concent 33g/dL (31-37) Red Cell Distribution Width 15.2% (11.5-14.5) Platelet Count 310x10^3/uL (140-400) Neutrophils (%) (Auto) 68% (31-73) Lymphocytes (%) (Auto) 15% (24-48) Monocytes (%) (Auto) 13% (0-9) Eosinophils (%) (Auto) 4% (0-3) Basophils (%) (Auto) 1% (0-3) Neutrophils # (Auto) 5.4x10^3uL (1.8-7.7) Lymphocytes # (Auto) 1.2x10^3/uL (1.0-4.8) Monocytes # (Auto) 1.0x10^3/uL (0.0-1.1) Eosinophils # (Auto) 0.3x10^3/uL (0.0-0.7) Basophils # (Auto) 0.1x10^3/uL (0.0-0.2) Sodium Level 140mmol/L (136-145) Potassium Level 3.2mmol/L (3.5-5.1) Chloride Level 104mmol/L (98-107) Carbon Dioxide Level 29mmol/L (21-32) Anion Gap 7 (6-14) Blood Urea Nitrogen 11mg/dL (8-26) Creatinine 1.2mg/dL (0.7-1.3) Estimated GFR (Cockcroft-Gault) 62.4 Glucose Level 141mg/dL (70-99) Calcium Level 8.5mg/dL (8.5-10.1) Phosphorus Level 4.8mg/dL (2.6-4.7) Magnesium Level 1.5mg/dL (1.8-2.4) Albumin 1.5g/dL (3.4-5.0) Test 12/04/16 08:15 12/04/16 11:30 12/04/16 16:28 12/05/16 06:00 Glucose (Fingerstick) 93mg/dL (70-99) 119mg/dL (70-99) 261mg/dL (70-99) Sodium Level 141mmol/L (136-145) Potassium Level 3.6mmol/L (3.5-5.1) Chloride Level 104mmol/L (98-107) Carbon Dioxide Level 28mmol/L (21-32) Anion Gap 9 (6-14) Blood Urea Nitrogen 10mg/dL (8-26) Creatinine 1.3mg/dL (0.7-1.3) Estimated GFR (Cockcroft-Gault) 56.9 Glucose Level 309mg/dL (70-99) Calcium Level 8.1mg/dL (8.5-10.1) Phosphorus Level 4.4mg/dL (2.6-4.7) Albumin 1.6g/dL (3.4-5.0) Test 12/05/16 07:23 12/05/16 11:20 Glucose (Fingerstick) 271mg/dL (70-99) 156mg/dL (70-99) Laboratory Tests Test 12/04/16 16:28 12/05/16 06:00 12/05/16 07:23 12/05/16 11:20 Glucose (Fingerstick) 261mg/dL (70-99) 271mg/dL (70-99) 156mg/dL (70-99) Sodium Level 141mmol/L (136-145) Potassium Level 3.6mmol/L (3.5-5.1) Chloride Level 104mmol/L (98-107) Carbon Dioxide Level 28mmol/L (21-32) Anion Gap 9 (6-14) Blood Urea Nitrogen 10mg/dL (8-26) Creatinine 1.3mg/dL (0.7-1.3) Estimated GFR (Cockcroft-Gault) 56.9 Glucose Level 309mg/dL (70-99) Calcium Level 8.1mg/dL (8.5-10.1) Phosphorus Level 4.4mg/dL (2.6-4.7) Albumin 1.6g/dL (3.4-5.0) Assessment Assessment POD# 1, S/P I &D, [place] exchange of his right knee septic arthritis. pain control wv hinged knee brace, 0-30 for range of motion, locked in extension for ambulation , weight bearing as tolerated. will order b/l afo's for the patient per patient request. plan to return to the OR for wound vac exchange versus closure. Problems: MADISON REDMAN MD Dec 05, 2016 14:12
[2016-12-05 15:00] VITALS: BP 152/62
[2016-12-05] MEDS: IV NORMAL SALINE 1000ML BAG 1,000 ML IV SCH (18:35)
[2016-12-05 19:00] VITALS: BP 142/70
[2016-12-05] MEDS: NIACIN ER 500 MG TABLET.ER PO SCH (21:00)
[2016-12-05] MEDS ORDERED: INSULIN DETEMIR 300 UNITS/3 ML INSULN.PEN. SQ SCH (21:00)
[2016-12-05 23:00] VITALS: BP 122/56
[2016-12-06] MEDS: AMPICILLIN/SULBACTAM 3 GM in IV NORMAL SALINE 100ML 100 ML IV SCH ×3 (00:28→12:24)
[2016-12-06 03:01] VITALS: BP 158/74
[2016-12-06 07:00] VITALS: BP 173/79
[2016-12-06 07:51] LABS: CALCIUM 8.7 mg/dL (8.5-10.1); CREATININE 1.2 mg/dL (0.7-1.3); GFR 62.4; POTASSIUM 3.6 mmol/L (3.5-5.1)
[2016-12-06] MEDS: INSULIN ASPART 300 UNITS/3 ML INSULN.PEN SQ SCH ×5 (08:00→17:34)
--- NOTE | 2016-12-06 08:39 | PDOC ---
Provider Note Provider Note still some hypoglycemia, takes levemir 24/himalog 36-45 daily at home- will reduce novolog now, follow- also anemia is new , was 13- is on asa and lovenox- will hemoccult stools and follow CLIFF WATTS MD Dec 06, 2016 08:39
[2016-12-06] MEDS: FAMOTIDINE 20 MG TABLET. PO SCH (09:06)
[2016-12-06] MEDS: FLUDROCORTISONE 0.1 MG TABLET PO SCH (09:06)
[2016-12-06] MEDS: DULOXETINE HCL 30 MG CAPSULE.DR. PO SCH (09:06)
[2016-12-06] MEDS: TACROLIMUS 1 MG CAPSULE PO SCH ×2 (09:06→22:09)
[2016-12-06] MEDS: OMEGA-3 FATTY ACIDS/FISH OIL 1,000 MG CAPSULE. PO SCH (09:06)
[2016-12-06] MEDS: ASPIRIN ENTERIC COATED 81 MG TABLET.DR. PO SCH (09:06)
[2016-12-06] MEDS: MYCOPHENOLATE ACID 180 MG TABLET.DR. PO SCH ×2 (09:07→22:09)
[2016-12-06] MEDS: POTASSIUM CHLORIDE 20 MEQ TABLET.ER. PO SCH (09:07)
[2016-12-06] MEDS: CHOLECALCIFEROL (VITAMIN D3) 1,000 UNIT TABLET PO SCH (09:07)
--- NOTE | 2016-12-06 09:39 | PDOC ---
Infectious Disease Note Subjective Subjective Pt feeling better this am. Reports no fevers overnight. Pt denies pain in his leg. Tolerating antibiotics well. ROS ROS GEN: Denies fevers, chills, sweats HEENT: Denies blurred vision, sore throat CV: Denies chest pain RESP: Denies shortness of air, cough GI: Denies n/v/d NEURO: Denies confusion, dizziness MSK: Denies weakness, joint pain/swelling Vital Sign Vital Signs Vital Signs Date Time Temp Pulse Resp B/P Pulse Ox O2 Delivery O2 Flow Rate FiO2 12/06/16 07:00 95.9 68 16 173/79 100 Room Air 95.9 Physical Exam PHYSICAL EXAM GENERAL: NAD, Alert HEENT: PERRL, OC/OP - clear NECK: Supple, no JVD, no LN LUNGS: Clear HEART: S1S2, no gallop, no murmur ABD: Soft, NT, no organomegaly, no rebound, obese EXT: No edema, no cyanosis. RLE dressed with vac and brace/JONATHAN. LUE AV graft SFDC SOLUTION ARCHITECT: Alert, oriented x 3, no focal neurologic deficit SKIN: No rash IV: right chest clean Labs Lab Laboratory Tests Test 12/05/16 11:20 12/05/16 14:10 12/05/16 14:36 12/05/16 14:58 Glucose (Fingerstick) 156mg/dL (70-99) 66mg/dL (70-99) 60mg/dL (70-99) 65mg/dL (70-99) Test 12/05/16 15:27 12/05/16 16:15 12/05/16 20:53 12/06/16 05:19 Glucose (Fingerstick) 111mg/dL (70-99) 118mg/dL (70-99) 179mg/dL (70-99) 75mg/dL (70-99) Test 12/06/16 05:57 12/06/16 06:00 Glucose (Fingerstick) 77mg/dL (70-99) Sodium Level 145mmol/L (136-145) Potassium Level 3.6mmol/L (3.5-5.1) Chloride Level 107mmol/L (98-107) Carbon Dioxide Level 30mmol/L (21-32) Anion Gap 8 (6-14) Blood Urea Nitrogen 9mg/dL (8-26) Creatinine 1.2mg/dL (0.7-1.3) Estimated GFR (Cockcroft-Gault) 62.4 Glucose Level 76mg/dL (70-99) Calcium Level 8.7mg/dL (8.5-10.1) Objective Assessment Right septic knee s/p I and D x3 Group B strep so far - wound VAC placed on 11/30 Gram stain from I and D on 12/04 showed no organisms. S/p Right chest line placed Immunosuppression CKD DM elevated FSBS Plan Plan of Care Cont Unasyn F/u labs Plan for repeat surgery on 12/07 for smaller sponge placement or primary closure Leg elevation / Hinged brace in place creative services producer D/w KITTY KUMAR MD Dec 06, 2016 09:39
--- NOTE | 2016-12-06 10:46 | PDOC ---
Renal-Progress Notes Subjective Notes Notes NONE History of Present Illness Hx of present illness STABLE Vitals Vitals Vital Signs Date Time Temp Pulse Resp B/P Pulse Ox O2 Delivery O2 Flow Rate FiO2 12/06/16 08:00 Room Air 12/06/16 07:00 95.9 68 16 173/79 100 95.9 Weight Weight [ ] I.O. Intake and Output Intake and Output 12/06/16 07:00 Intake Total 3030 ml Output Total 90 ml Balance 2940 ml Intake Oral 2460 ml IV Total 210 ml Other 360 ml Emesis 90 ml # Voids 4 Labs Labs Laboratory Tests Test 12/05/16 11:20 12/05/16 14:10 12/05/16 14:36 12/05/16 14:58 Glucose (Fingerstick) 156mg/dL (70-99) 66mg/dL (70-99) 60mg/dL (70-99) 65mg/dL (70-99) Test 12/05/16 15:27 12/05/16 16:15 12/05/16 20:53 12/06/16 05:19 Glucose (Fingerstick) 111mg/dL (70-99) 118mg/dL (70-99) 179mg/dL (70-99) 75mg/dL (70-99) Test 12/06/16 05:57 12/06/16 06:00 Glucose (Fingerstick) 77mg/dL (70-99) Sodium Level 145mmol/L (136-145) Potassium Level 3.6mmol/L (3.5-5.1) Chloride Level 107mmol/L (98-107) Carbon Dioxide Level 30mmol/L (21-32) Anion Gap 8 (6-14) Blood Urea Nitrogen 9mg/dL (8-26) Creatinine 1.2mg/dL (0.7-1.3) Estimated GFR (Cockcroft-Gault) 62.4 Glucose Level 76mg/dL (70-99) Calcium Level 8.7mg/dL (8.5-10.1) Micro Micro Microbiology 12/04/16 Anaerobic/Aerobic Culture - Preliminary, Resulted 12/04/16 Anaerobic Culture Result 1 (GUILLERMINA) - Preliminary, Resulted 12/04/16 Aerobic Culture - Preliminary, Resulted 12/04/16 Aerobic Culture Result 1 (GUILLERMINA) - Preliminary, Resulted Review of Systems Constitutional: yes: alert, weakness Ears/Nose/Throat: Yes: no symptom reported Cardiovascular: Yes no symptom reported Gastrointestional: Yes: no symptom reported Genitourinary: Yes: no symptom reported Skin: Yes no symptom reported Physical Exam General Appearance: no apparent distress Skin: warm Respiratory: bilateral CTA Heart: S1S2, no thrills Abdomen: soft, bowel sounds present Extremities: pulses present Neurology: alert Musculoskeletal: Muscle atrophy, Weakness Assessment Assessment IMP RIGHT KNEE INFECTION CHRONIC IMMUNOSUPPRESSION S/P RENAL TX WITH CR OF 1.2 AND STABLE HYPOKALEMIA-REPLACED PLAN CONT PROGRAF AND MYFORTIC ANTIBIOTICS WILL FOLLOW MARILEE MCCARTHY MD Dec 06, 2016 10:46
[2016-12-06 11:05] VITALS: BP 189/96
[2016-12-06] MEDS ORDERED: ONDANSETRON PF 4 MG/2 ML VIAL. IV PRN (13:30)
[2016-12-06 15:00] VITALS: BP 162/73
[2016-12-06] MEDS: ACETAMINOPHEN 325 MG TABLET. PO PRN (18:28)
[2016-12-06] MEDS: IV NORMAL SALINE 1000ML BAG 1,000 ML IV SCH (18:30)
[2016-12-06 19:00] VITALS: BP 107/58
[2016-12-06] MEDS ORDERED: INSULIN DETEMIR 300 UNITS/3 ML INSULN.PEN. SQ SCH (21:00)
[2016-12-06] MEDS ORDERED: CEFAZOLIN 2GM PREMIX 50 ML IV SCH (22:00)
[2016-12-06] MEDS: NIACIN ER 500 MG TABLET.ER PO SCH (22:09)
[2016-12-06 22:57] VITALS: BP 122/57
[2016-12-07] VITALS (12 sets, daily range): BP systolic 143–171; BP diastolic 66–84
[2016-12-07] MEDS ORDERED: CEFAZOLIN 2GM PREMIX 50 ML IV ONE (06:00)
[2016-12-07] MEDS ORDERED: PROPOFOL 20 ML IV ONE (06:58)
[2016-12-07] MEDS ORDERED: SEVOFLURANE 31 TO 60 MINUTES. IH ONE (06:58)
[2016-12-07] MEDS ORDERED: MIDAZOLAM HCL 2 MG/2 ML VIAL. ONE (06:58)
[2016-12-07] MEDS ORDERED: FENTANYL PF 100 MCG/2 ML VIAL. ONE (06:58)
[2016-12-07] MEDS ORDERED: LIDOCAINE 2% 100 MG/5 ML DISP.SYRIN. ONE (06:59)
[2016-12-07] MEDS ORDERED: ONDANSETRON PF 4 MG/2 ML VIAL. ONE (06:59)
[2016-12-07] MEDS ORDERED: FAMOTIDINE 20 MG/2 ML VIAL ONE (06:59)
[2016-12-07] MEDS ORDERED: IV RINGERS,LACTATED 1000ML 1,000 ML IV SCH (07:00)
[2016-12-07] MEDS ORDERED: PROCHLORPERAZINE 10 MG/2 ML VIAL. IV PRN (07:00)
[2016-12-07] MEDS ORDERED: MORPHINE SULFATE 2 MG/ML DISP.SYRIN. IV PRN (07:00)
[2016-12-07] MEDS ORDERED: ONDANSETRON PF 4 MG/2 ML VIAL. IV PRN (07:00)
[2016-12-07] MEDS ORDERED: FENTANYL PF 100 MCG/2 ML VIAL. IV PRN ×2 (07:00)
[2016-12-07] MEDS ORDERED: HYDROMORPHONE 2 MG/ML VIAL. IV PRN (07:00)
[2016-12-07] MEDS ORDERED: LIDOCAINE 1% 1 ML SYRINGE. ID PRN (07:00)
[2016-12-07] MEDS ORDERED: ROCURONIUM 50 MG/5 ML VIAL. ONE (07:09)
[2016-12-07] MEDS ORDERED: SUCCINYLCHOLINE 200 MG/10 ML VIAL. ONE (07:09)
[2016-12-07] MEDS: INSULIN ASPART 300 UNITS/3 ML INSULN.PEN SQ SCH ×6 (07:30→17:30)
--- NOTE | 2016-12-07 07:42 | PDOC ---
PROGRESS NOTES Subjective Subjective Problems overnight: no acute issues. pts vomiting has resolved. Objective Vital Signs Vital Signs Date Time Temp Pulse Resp B/P Pulse Ox O2 Delivery O2 Flow Rate FiO2 12/07/16 06:54 97.4 73 17 169/76 97 Room Air 97.4 12/04/16 11:41 10 Physical Exam gen: awake, alert, oriented, comfortable. rle with WV to suction 100cc output overnight. exam stable Labs Laboratory Tests Test 12/05/16 11:20 12/05/16 14:10 12/05/16 14:36 12/05/16 14:58 Glucose (Fingerstick) 156mg/dL (70-99) 66mg/dL (70-99) 60mg/dL (70-99) 65mg/dL (70-99) Test 12/05/16 15:27 12/05/16 16:15 12/05/16 20:53 12/06/16 05:19 Glucose (Fingerstick) 111mg/dL (70-99) 118mg/dL (70-99) 179mg/dL (70-99) 75mg/dL (70-99) Test 12/06/16 05:57 12/06/16 06:00 12/06/16 10:36 12/06/16 15:55 Glucose (Fingerstick) 77mg/dL (70-99) 148mg/dL (70-99) 145mg/dL (70-99) Sodium Level 145mmol/L (136-145) Potassium Level 3.6mmol/L (3.5-5.1) Chloride Level 107mmol/L (98-107) Carbon Dioxide Level 30mmol/L (21-32) Anion Gap 8 (6-14) Blood Urea Nitrogen 9mg/dL (8-26) Creatinine 1.2mg/dL (0.7-1.3) Estimated GFR (Cockcroft-Gault) 62.4 Glucose Level 76mg/dL (70-99) Calcium Level 8.7mg/dL (8.5-10.1) Test 12/06/16 20:58 12/07/16 06:42 Glucose (Fingerstick) 124mg/dL (70-99) 125mg/dL (70-99) Laboratory Tests Test 12/06/16 10:36 12/06/16 15:55 12/06/16 20:58 12/07/16 06:42 Glucose (Fingerstick) 148mg/dL (70-99) 145mg/dL (70-99) 124mg/dL (70-99) 125mg/dL (70-99) Assessment Assessment s/p multiple I&D's for right knee septic arthritis Problems: Plan Plan of Care Return to the OR Today for another I&D wound vac exchange. depending on how it looks, may consider transfer in the near future to for a flap over the area. continue to keep debriding the patient and attempting closure over the knee in the meantime. PT/OT: wbat rle in hinged knee brace. MADISON REDMAN MD Dec 07, 2016 07:42
[2016-12-07] MEDS ORDERED: NEOSTIGMINE METHYLSULFATE 5 MG/5 ML SYRINGE. ONE (08:19)
[2016-12-07] MEDS ORDERED: GLYCOPYRROLATE 1 MG/5 ML VIAL. ONE (08:19)
--- NOTE | 2016-12-07 08:35 | PDOC ---
BRIEF OPERATIVE NOTE Date: Dec 07, 2016 Pre-Op Diagnosis right knee septic arthritis Post-Op Diagnosis same Procedure Performed Excisional debridement right knee wound, wound vac exchange Surgeon Madison Redman MD Canvas Baster none Anesthesia Type: General Blood Loss minimal Specimens Obtained none Findings no necrotic tissue or purulence. sutures intact for the capsulotomy. good granulation tissue in the bed. no signs of infection. Complications none Additional Remarks Pt was closed with a wound vac, decreased the size of the sponge. I will not be able to close this incision primarily. He needs other tissue brought into the area such as a gastroc flap or even a free flap. I will speak with [facility] today regarding transfer for definitive coverage. MADISON REDMAN MD Dec 07, 2016 08:35
--- NOTE | 2016-12-07 08:47 | PDOC ---
Provider Note Provider Note vss, glucose good- down in RR after knee work- plan per dr rick barry- CLIFF WATTS MD Dec 07, 2016 08:47
[2016-12-07] MEDS: FLUDROCORTISONE 0.1 MG TABLET PO SCH (10:54)
[2016-12-07] MEDS: TACROLIMUS 1 MG CAPSULE PO SCH (10:54)
[2016-12-07] MEDS: MYCOPHENOLATE ACID 180 MG TABLET.DR. PO SCH (10:54)
--- NOTE | 2016-12-07 11:17 | PDOC ---
Infectious Disease Note Subjective Subjective Had some nausea Unasyn changed to Cefazolin given nausea and no new cult results S/p I an D today ROS ROS GEN: Denies fevers, chills, sweats HEENT: Denies blurred vision, sore throat CV: Denies chest pain RESP: Denies shortness of air, cough GI: Denies n/v/d NEURO: Denies confusion, dizziness MSK: Denies weakness, joint pain/swelling Vital Sign Vital Signs Vital Signs Date Time Temp Pulse Resp B/P Pulse Ox O2 Delivery O2 Flow Rate FiO2 12/07/16 10:30 97.9 79 20 171/70 98 Nasal Cannula 2.0 97.9 Physical Exam PHYSICAL EXAM GENERAL: NAD, Alert but resting HEENT: PERRL, OC/OP - clear NECK: Supple, no JVD, no LN LUNGS: Clear HEART: S1S2, no gallop, no murmur ABD: Soft, NT, no organomegaly, no rebound, obese EXT: No edema, no cyanosis. RLE dressed with vac and brace/JONATHAN. LUE AV graft GAS ANALYST: Alert, oriented x 3, no focal neurologic deficit SKIN: No rash IV: right chest clean Labs Lab Laboratory Tests Test 12/06/16 15:55 12/06/16 20:58 12/07/16 06:42 12/07/16 08:36 Glucose (Fingerstick) 145mg/dL (70-99) 124mg/dL (70-99) 125mg/dL (70-99) 133mg/dL (70-99) Objective Assessment Unasyn changed to Cefazolin 12/06 given nausea and no new cult results Right septic knee s/p I and D x3 Group B strep so far - wound VAC placed on . S/p multiple I and Ds on 12/04 showed no organisms. S/p Right chest line placed Immunosuppression CKD DM elevated FSBS Plan Plan of Care Cont Cefazolin F/u labs Leg elevation / Hinged brace in place vocational services specialist Await Feed back from [facility] re further surgical plans D/w KITTY KUMAR MD Dec 07, 2016 11:17
[2016-12-07 12:28] LABS: HEMOGLOBIN 9.1 g/dL (13.0-17.5); RED BLOOD COUNT 3.15 x10^6/uL (4.30-5.70); RED CELL DISTRIBUTION WIDTH 15.5 % (11.5-14.5); WHITE BLOOD COUNT 7.8 x10^3/uL (4.0-11.0)
[2016-12-07] MEDS: OMEGA-3 FATTY ACIDS/FISH OIL 1,000 MG CAPSULE. PO SCH (13:22)
[2016-12-07] MEDS: CHOLECALCIFEROL (VITAMIN D3) 1,000 UNIT TABLET PO SCH (13:22)
[2016-12-07] MEDS: POTASSIUM CHLORIDE 20 MEQ TABLET.ER. PO SCH (13:23)
[2016-12-07] MEDS: FAMOTIDINE 20 MG TABLET. PO SCH (13:23)
[2016-12-07] MEDS: ASPIRIN ENTERIC COATED 81 MG TABLET.DR. PO SCH (13:23)
[2016-12-07] MEDS: DULOXETINE HCL 30 MG CAPSULE.DR. PO SCH (13:23)
[2016-12-07] MEDS ORDERED: INSULIN DETEMIR 300 UNITS/3 ML INSULN.PEN. SQ SCH (21:00)
[2016-12-07] MEDS ORDERED: CEFAZOLIN 2GM PREMIX 50 ML IV SCH (22:00)
--- NOTE | 2016-12-09 23:58 | DS ---
DATE OF DISCHARGE: 12/07/2016 HOSPITAL SUMMARY: A 56-year-old white male diabetic with chronic infected left knee after surgery, came in with signs of infection. He grew out group B strep and was treated with IV Ancef while in the hospital stay with PICC line in place. Dr. Yoon Ocampo was managing his orthopedic problem, took him to the operating room and replaced some of the spacers, but because of inability to close the wound, recommended transfer to [facility] for wound flap and tissue transfer and she accomplished this on 12/07/2016. All laboratory data on the record ____ be dictated here. FINAL DIAGNOSES: 1. Septic good joint, left knee. 2. Insulin-dependent diabetes. OPERATIONS AND PROCEDURES: Operative clean out of the left knee. COMPLICATIONS: None. CONSULTATIONS: Dr. Ocampo, Dr. Aguilar. DISPOSITION: Meds listed per the chart at the time of discharge, which was done for medical transportation to [facility]. Follow up with Dr. Shaikh as an outpatient when available. PROGNOSIS: Uncertain. CLIFF WATTS MD DR: GEOVANY/roger JOB#: [id number] / [id number]
== END 2016-12-07 20:20 | DRG 987 ==
LOC: ER 11:21 → 4 NORTH 13:40
PROVIDERS: ADMIT Family Medicine; ATTEND Family Medicine
PROC: 0SBC0ZZ Excision of Right Knee Joint, Open Approach (ICD-10-PCS; principal; 2016-11-30 13:00)
PROC: 02H633Z Insertion of Infusion Device into Right Atrium, Percutaneous Approach (ICD-10-PCS; 2016-12-02)
PROC: B2141ZZ Fluoroscopy of Right Heart using Low Osmolar Contrast (ICD-10-PCS; 2016-12-02)
DX: L03.115 Cellulitis of right lower limb (principal); N18.6 End stage renal disease; M00.9 Pyogenic arthritis, unspecified; N17.9 Acute kidney failure, unspecified; Z94.0 Kidney transplant status; M70.41 Prepatellar bursitis, right knee; E11.22 Type 2 diabetes mellitus with diabetic chronic kidney disease; E87.6 Hypokalemia; I25.10 Atherosclerotic heart disease of native coronary artery without angina pectoris; W18.30XA Fall on same level, unspecified, initial encounter; Z79.4 Long term (current) use of insulin; Z83.3 Family history of diabetes mellitus; Z95.1 Presence of aortocoronary bypass graft; Z99.2 Dependence on renal dialysis; Z79.2 Long term (current) use of antibiotics; M17.11 Unilateral primary osteoarthritis, right knee
CPT/HCPCS: 10060; 36415; 36558; 73562; 76937; 77001; 80048; 80069; 82040; 82947; 83735; 84100; 85007; 85027; 85610; 85651; 86140; 87070; 87071; 87075; 87205; 88305; C1713; C1751; C1892; J0295; J0330; J0690; J0712; J0780; J1100; J1650; J1815; J2250; J2270; J2370; J2405; J2543; J2704; J2710; J3010; J3260; J3370; J3475; J3490; J7030; J7040; J7042; J7050; J7060; J7120; J7507; S0028; 99285-25

== ENCOUNTER 2017-01-23 13:34 | Emergency (ER) | payer MEDICARE, BC ==
[~2017-01-23] VITALS: Ht 182.9 cm; Wt 113.4 kg
[2017-01-23 13:49] VITALS: BP 164/80
--- NOTE | 2017-01-23 14:32 | PHYS DOC ---
Past Medical History Past Medical History: Diabetes-Type II, Renal Disease, Other Additional Past Medical Histor: CY NEUROPATHY LEGS AND ARMS, Past Surgical History: Coronary Bypass Surgery, Other Additional Past Surgical Histo: CY KIDNEY TRANSPLANT, CATARACT SX CY EYES, FX RIGHT HIP,FISTULA L ARM Alcohol Use: None Drug Use: None Adult General Chief Complaint Chief Complaint: OTHER COMPLAINTS HPI HPI Patient is a 56 year old male who presents with request for PICC line removal. Patient has complicated recent PMHx with septic arthritis requiring transfer to [facility] for reconstruction & subsequent rehab hospitalization, with PICC line placement for IV antibiotics. States he completed antibiotics several weeks ago , now discharged from rehab, & wants PICC line removed. Denies any new concerns related to his knee. No fevers/chills, warmth/erythema/swelling surrounding PICC line insertion site. Placed by Dr. Carvalho here at [facility] prior to transfer to [facility]. He has made a lot of phone calls but unsure how to get the line removed. PCP is Dr. Shaikh. Review of Systems Review of Systems Constitutional: Denies fever or chills Respiratory: Denies shortness of breath Cardiovascular: Denies chest pain Integument: Denies rash or skin lesions Neurologic: Denies headache, Allergies Allergies Allergies Coded Allergies Type Severity Reaction Last Updated Verified No Known Allergies Allergy Intermediate 12/07/16 Yes zolpidem Adverse Reaction Unknown hallucinations 01/23/17 Yes Physical Exam Physical Exam Constitutional: obese, no acute distress, non-toxic appearance. HENT: Normocephalic, atraumatic, bilateral external ears normal, oropharynx moist, nose normal. Eyes: conjunctiva normal, no discharge. Neck: supple, no stridor. Cardiovascular: no edema. Lungs & Thorax: no respiratory distress. right chest wall central line no surrounding erythema/warmth/swelling, no drainage. dressing is clean & dry. Abdomen: nondistended. Skin: Warm, dry, no erythema, no rash. Extremities: No deformity Neurologic: Alert and oriented X 3 Current Patient Data Vital Signs Vital Signs Date Time Temp Pulse Resp B/P Pulse Ox O2 Delivery O2 Flow Rate FiO2 01/23/17 13:49 97.7 86 16 97 Room Air 97.7 EKG EKG [] Radiology/Procedures Radiology/Procedures [] Course & Med Decision Making Course & Med Decision Making Pertinent Labs and Imaging studies reviewed. (See chart for details) The patient presents for PICC line removal. He is obviously very frustrated about having made numerous phone calls himself with no answers. I discussed with Dr. Spann of infectious disease who recommended that the patient could be seen in ID clinic, but then was notified that he had already called them & needs to instead see Dr. Carvalho in IR. Talked to Dr. Carvalho's nurse who says he will need a physician order to have the line removed, & then can make an appointment with Dr. Carvalho. Finally I was able to contact Dr. Shaikh who says the patient can call his clinic & he will give order for removal. The patient understands the plan, was hopeful to have it removed today, but understands plan & will call [facility] to arrange with Dr. Shaikh. Return for signs of line infection or shortness of breath, or any otherwise worsening condition. Discharged home in stable condition. [] Dragon Disclaimer Dragon Disclaimer This electronic medical record was generated, in whole or in part, using a voice recognition dictation system. Departure Departure Impression: Primary Impression: Status post PICC central line placement Disposition: HOME, SELF-CARE Condition: STABLE Referrals: TIMA SHAIKH MD (PCP) Patient Instructions: PICC Home Guide, PICC, Removal and Care After Additional Instructions: You were seen in the Emergency Department today. Unfortunately we are not able to remove your PICC line today. Please call Dr. Shaikh's office & they will give an order to Dr. Carvalho. Then they will schedule you for an appointment to have the line removed. Come back for high fever, hot/red/swollen skin around the line, or any otherwise worsening condition. AMANDA CALDERÓN MD Jan 23, 2017 14:32
[2017-01-25] MEDS ORDERED: METF500T4 PO (07:41)
== END 2017-01-23 15:02 | disposition home or self-care (01) ==
LOC: ER 13:34
DX: Z45.2 Encounter for adjustment and management of vascular access device (principal); E11.40 Type 2 diabetes mellitus with diabetic neuropathy, unspecified; E11.36 Type 2 diabetes mellitus with diabetic cataract; Z88.8 Allergy status to other drugs, medicaments and biological substances; Z95.1 Presence of aortocoronary bypass graft
CPT/HCPCS: 99281

== ENCOUNTER → 2017-01-25 | Outpatient (CLI) | payer MEDICARE, BC ==
[~2017-01-25] VITALS: Ht 182.9 cm; Wt 113.4 kg
[~2017-01-25] MED LIST changes: +FENTANYL PF 100 MCG/2 ML VIAL. ONE; +LIDOCAINE 1% / SOD BICARB 8.4% 20 ML VIAL. IJ ONE; +LIDOCAINE 1%/EPI 1:100,000 20 ML VIAL. ONE; +METF500T4 PO
[2017-01-25 07:46] VITALS: BP 125/66
--- NOTE | 2017-01-25 09:17 | PDOC1 ---
History and Physical Date of Procedure Date of Admission 01/25/17 Procedure Procedure Removal rt IJ tunneled Power Line Indication Indication IV abx for septic knee complete---Power Line no longer needed. Past Medical History Past Medical History See Nursing Pre procedure PMH Past Surgical History Past Surgical History See Nursing Pre procedure PSH Current Medications Current Medications Current Medications Lidocaine/ Epinephrine (Xylocaine 1%-Epi 1:100,000) 20 ml STK-MED ONCE .ROUTE ; Start 01/25/17 at 08:01; Stop 01/25/17 at 08:02; Status DC Lidocaine/Sodium Bicarbonate 20 ml 20 ml STK-MED ONCE IJ ; Start 01/25/17 at 08: 02; Stop 01/25/17 at 08:03; Status DC Heparin Sodium/ Sodium Chloride 500 ml @ As Directed STK-MED ONCE .ROUTE ; Start 01/25/17 at 08:02; Stop 01/25/17 at 08:03; Status DC Fentanyl Citrate (Fentanyl 2ml Vial) 100 mcg STK-MED ONCE .ROUTE ; Start at 08:43; Stop 01/25/17 at 08:44; Status DC Heparin Sodium/ Sodium Chloride 1,000 unit 1X ONCE IART ; Start 01/25/17 at 09: 00; Stop 01/25/17 at 09:01; Status DC Lidocaine/Sodium Bicarbonate (Buffered Lidocaine 1%) 20 ml 1X ONCE IJ ; Start 01/25/17 at 09:00; Stop 01/25/17 at 09:01; Status DC Active Scripts Active Reported Metformin Hcl 500 Mg Tablet 500 Mg PO DAILY Prograf (Tacrolimus) 1 Mg Capsule 1 Cap PO BID Falls [place] Rough-3 (Falls Of Rough-3 Fatty Acids) 1,000 Mg Capsule 1,000 Mg PO Niacin 500 Mg Tablet 500 Mg PO HS Aspir 81 (Aspirin) 81 Mg Tablet. 1 Tab PO DAILY Vitamin D-3 (Cholecalciferol (Vitamin D3)) 2,000 Unit Capsule 1,000 Unit PO DAILY Fludrocortisone Acetate 0.1 Mg Tablet 1 Tab PO DAILY Myfortic (Mycophenolate Sodium) 360 Mg Tablet. 360 Mg PO BID Cymbalta (Duloxetine Hcl) 60 Mg Capsule. 1 Cap PO DAILY Allergies Allergies: Coded Allergies: No Known Allergies (Verified Allergy, Intermediate, 12/07/16) zolpidem (Verified Adverse Reaction, Unknown, hallucinations, 01/23/17) Physical Exam Vital Signs Vital Signs Date Time Temp Pulse Resp B/P Pulse Ox O2 Delivery O2 Flow Rate FiO2 01/25/17 07:46 98.1 76 16 125/66 97 Room Air 98.1 Lungs: Clear to auscultation Heart: Regular rate Psych/Mental Status: Mental status NL Other Rt IJ tunneled Power Line in place, without tunnel infection Assessment Assessment IV Abx for septic knee complete---Power Line no longer needed Problems: Plan Plan Removal rt IJ tunneled Power Line XIANG RAE MD Jan 25, 2017 09:17
--- NOTE | 2017-01-25 09:19 | PDOC ---
Exam Butting Saw Operator Butting Saw Operator Deven Press Officer Press Officer F Ndumbu Pre-Procedure Diagnosis Pre-Procedure Diagnosis IV Abx for septic knee complete---Power Line no longer needed. Post-Procedure Diagnosis Post-Procedure Diagnosis Same Procedure Performed Procedure Performed Removal rt IJ tunneled Power Line Type of Anesthesia Type of Anesthesia Local only Estimated Blood Loss EBL: Minimal Specimens Specimans Rt IJ 5F 2L tunneled Power Line removed and discarded Condition of Patient Condition of Patient Stable. No apparent complication. Disposition Disposition Home from [facility], if no tunnel bleeding. F/u with Dr Shaikh. Full report to follow. XIANG RAE MD Jan 25, 2017 09:19
--- NOTE | 2017-01-26 07:50 | RAD ---
Removal of right IJ tunneled power line Indication: 56-year-old male who received a power line for long-term IV antibiotic therapy for septic knee. Antibiotic treatment has been completed. The power line is no longer needed. Power line removal has been requested. Anesthesia: Local only Sterility: All elements of maximal sterile barrier technique, including the use of a cap, mask, sterile gown, sterile gloves, large sterile sheet, appropriate hand hygiene, and 2% chlorhexidine for cutaneous antisepsis (or acceptable alternative antiseptic per current guidelines) were utilized. Fluoroscopy time: 0.1 minute. 2 fluoroscopic spot images were recorded. Kerma-Area Product: 0.7 Gycm2 Antibiotic: No prophylactic antibiotic was considered indicated for this procedure. Procedure: Informed consent was obtained from the patient. He was placed supine on the angiography table. Preliminary fluoroscopic evaluation revealed migration of tip of the indwelling power line from cavoatrial junction to lie within mid right subclavian vein. Right neck and chest were prepped and draped in the usual sterile fashion, utilizing all elements of maximal sterile barrier technique, as described above. Using aseptic technique and local anesthesia, retention catheter of the indwelling right IJ tunneled power line was freed from surrounding soft tissues utilizing a small mosquito hemostats introduced through the right chest skin exit site. Utilizing gentle traction, the power line was easily removed and was discarded. Hemostasis was achieved with manual pressure over right internal jugular vein. Complete removal of the power line was confirmed with a pre and postprocedure fluoroscopic spot images. Patient tolerated the procedure well without apparent complication. Impression: Successful, uneventful removal of right IJ 5 [place] dual-lumen tunneled power line, as described.
== END ==
LOC: INTRAD 06:56
PROVIDERS: ATTEND Family Medicine
DX: Z45.2 Encounter for adjustment and management of vascular access device (principal); I25.10 Atherosclerotic heart disease of native coronary artery without angina pectoris; E11.9 Type 2 diabetes mellitus without complications; F32.9 Major depressive disorder, single episode, unspecified
CPT/HCPCS: 36590